=== PATIENT | female | born 1935 | race Caucasian/White ===

== ENCOUNTER 2017-12-29 13:45 | Outpatient (RCR) | payer MEDICARE, OTHER, SELFPAY ==
--- NOTE | 2017-11-17 15:04 | PT.OTN ---
On November 17, 2017 our therapy services consisting of Speech, Occupational, and Physical therapy transitioned from [employer] electronic documentation system to a new [employer] electronic system. All documentation prior to November 17 can be found under [employer] saved data. From November 17 forward, all medical record documentation will be in [employer] 6.1.
--- NOTE | 2017-11-17 17:30 | PT.OTN ---
Current Diagnoses Low back pain (11/17/17) Weakness (11/17/17) Unspecified fall, initial encounter (11/17/17) Physical Therapy Treatment Note PT-OP-Q Treatments Start: 11/17/17 16:42 Freq: Status: Active Protocol: Activity Type Activity Date Activity User E-Sign Co-Sign Detail Recorded Client Recorded Date Recorded By Document 11/17/17 16:43 EA [id number] 11/17/17 16:51 EA 11/17/17 16:43 Cardio Equipment [Recumbent Stepper (Sci-Fit)] -Duration (Minutes) 6 -Resistance 1 Therapeutic Exercises [Supine Exercises] 4 -Supine Exercise Name Stretch to periformis, hip flexors, IT band, both ankle PF -Side bilateral 3 -Supine Exercise Name Ankle DF -Side right -Resistance BTB -Reps/Minutes 10 reps x 2 2 -Supine Exercise Name Pelvic bridging -Side bilateral -Reps/Minutes 15 reps x 2 1 -Supine Exercise Name SLR -Side right -Resistance 2 lbs -Reps/Minutes 10 reps x 2 [Sidelying Exercises] 1 -Sidelying Exercise Name Clamshells -Side bilateral -Resistance BTB -Reps/Minutes 10 reps x 2 Self-Care/Home Management Treatment [Education] -Patient Education Home Exercise Program PT-OP-R Modalities Start: 11/17/17 16:42 Freq: Status: Active Protocol: Activity Type Activity Date Activity User E-Sign Co-Sign Detail Recorded Client Recorded Date Recorded By Document 11/17/17 17:16 EA [id number] 11/17/17 17:18 EA 11/17/17 17:16 Electric Stimulation [Electric Stimulation] Interferential Current (IFC) -Body Location paralumbars -Duration (Minutes) 15 -Contraction Type Normal -Target/Sweep Target -Patient Position Hooklying -Combined With Heat/Cold Hot Pack Hot Pack/Cold Pack [Treatment] Hot Pack -Location Paralumbars -Patient Position Hooklying -Patient Tolerance Good PT-OP-T Assessment and Plan Start: 11/17/17 16:42 Freq: Status: Active Protocol: Activity Type Activity Date Activity User E-Sign Co-Sign Detail Recorded Client Recorded Date Recorded By Document 11/17/17 16:43 EA [id number] 11/17/17 16:51 EA 11/17/17 16:43 Physical Therapy Assessment [Assessment Summary] -Assessment Tolerated treatment well w/ mild c/o pain and difficulty. Physical Therapy Plan [Next Visit Focus/Plan] -Next Visit Plan Review HEP and continue with current program
--- NOTE | 2017-11-19 17:02 | PT.OTN ---
Current Diagnoses Low back pain (11/19/17) Weakness (11/19/17) Unspecified fall, initial encounter (11/19/17) Physical Therapy Treatment Note PT-OP-Q Treatments Start: 11/17/17 16:42 Freq: Status: Active Protocol: Activity Type Activity Date Activity User E-Sign Co-Sign Detail Recorded Client Recorded Date Recorded By Document 11/19/17 14:34 EA [id number] 11/19/17 14:40 EA 11/19/17 14:34 Cardio Equipment [Recumbent Stepper (Sci-Fit)] -Duration (Minutes) 6 -Resistance 1 Therapeutic Exercises [Supine Exercises] 4 -Supine Exercise Name Stretch to periformis, hip flexors, IT band, both ankle PF -Side bilateral 3 -Supine Exercise Name Ankle DF -Side right -Resistance BTB -Reps/Minutes 10 reps x 2 2 -Supine Exercise Name Pelvic bridging -Side bilateral -Reps/Minutes 15 reps x 2 1 -Supine Exercise Name SLR -Side right -Resistance 2 lbs -Reps/Minutes 10 reps x 2 Gait Training [Gait Activity] 1 -Description heel to toe gait -Device Used none -Level of Assistance SBA -Distance/Duration 3 mins Manual Therapy Treatment [Soft Tissue Mobilization] 1 -Body Location paralumbars, QL , -Mobilization Type Myofascial Release Sustained Pressure -Body Position Sidelying PT-OP-R Modalities Start: 11/17/17 16:42 Freq: Status: Active Protocol: Activity Type Activity Date Activity User E-Sign Co-Sign Detail Recorded Client Recorded Date Recorded By Document 11/17/17 17:16 EA [id number] 11/17/17 17:18 EA 11/17/17 17:16 Electric Stimulation [Electric Stimulation] Interferential Current (IFC) -Body Location paralumbars -Duration (Minutes) 15 -Contraction Type Normal -Target/Sweep Target -Patient Position Hooklying -Combined With Heat/Cold Hot Pack Hot Pack/Cold Pack [Treatment] Hot Pack -Location Paralumbars -Patient Position Hooklying -Patient Tolerance Good PT-OP-T Assessment and Plan Start: 11/17/17 16:42 Freq: Status: Active Protocol: Activity Type Activity Date Activity User E-Sign Co-Sign Detail Recorded Client Recorded Date Recorded By Document 11/19/17 14:34 EA [id number] 11/19/17 14:40 EA 11/19/17 14:34 Physical Therapy Assessment [Assessment Summary] -Assessment Patient tolerated treatment well. Recommends to cont HEP. Physical Therapy Plan [Next Visit Focus/Plan] -Next Visit Plan Cont. with current Plan.
--- NOTE | 2017-11-23 14:49 | PT.OTN ---
Current Diagnoses Low back pain (11/23/17) Weakness (11/23/17) Unspecified fall, initial encounter (11/23/17) Physical Therapy Treatment Note PT-OP-A Visit Information Start: 11/17/17 16:42 Freq: Status: Active Protocol: Activity Type Activity Date Activity User E-Sign Co-Sign Detail Recorded Client Recorded Date Recorded By Document 11/23/17 14:36 EA [id number] 11/23/17 14:47 EA 11/23/17 14:36 Out-Patient Physical Therapy Visit Information [Visit Information] -Visit Type Treatment Note -Total Visit Minutes 55 -Visit Number 4 -Number of [employer] Visits 0 PT-OP-C Subjective Start: 11/17/17 16:42 Freq: Status: Active Protocol: Activity Type Activity Date Activity User E-Sign Co-Sign Detail Recorded Client Recorded Date Recorded By Document 11/23/17 14:36 EA [id number] 11/23/17 14:47 EA 11/23/17 14:36 OP-PT Subjective [Patient Comments] -Patient Comments Patient reports has been compliant with HEP and still have difficulty w/ calf stretching. PT-OP-Q Treatments Start: 11/17/17 16:42 Freq: Status: Active Protocol: Activity Type Activity Date Activity User E-Sign Co-Sign Detail Recorded Client Recorded Date Recorded By Document 11/23/17 14:36 EA [id number] 11/23/17 14:47 EA 11/23/17 14:36 Cardio Equipment [Recumbent Stepper (Sci-Fit)] -Duration (Minutes) 6 -Resistance 2 Gym Equipment [Shuttle Recovery] Unilateral Squats -Details 90degs -Resistance 1.5 cord -Shuttle Recovery Platform Stable -Reps/Time x 3 sets x 15 reps Therapeutic Exercises [Supine Exercises] 4 -Supine Exercise Name Stretch to periformis, hip flexors, IT band, both ankle PF -Side bilateral 3 -Supine Exercise Name Ankle DF -Side right -Resistance BTB -Reps/Minutes 10 reps x 2 2 -Supine Exercise Name Pelvic bridging -Side bilateral -Reps/Minutes 15 reps x 2 1 -Supine Exercise Name SLR -Side right -Resistance 2 lbs -Reps/Minutes 10 reps x 2 [Sidelying Exercises] 1 -Sidelying Exercise Name Clamshells -Side bilateral -Resistance BTB -Reps/Minutes 10 reps x 2 [Standing Exercises] 1 -Standing Exercise Name Standing gastrocsolues stretc -Side right -Reps/Minutes x 30SH x 2 Gait Training [Gait Activity] 1 -Description heel to toe gait -Device Used none -Level of Assistance SBA -Distance/Duration 5 mins Manual Therapy Treatment [Soft Tissue Mobilization] 1 -Body Location paralumbars, QL , -Mobilization Type Myofascial Release Sustained Pressure -Body Position Sidelying PT-OP-R Modalities Start: 11/17/17 16:42 Freq: Status: Active Protocol: Activity Type Activity Date Activity User E-Sign Co-Sign Detail Recorded Client Recorded Date Recorded By Document 11/23/17 14:36 EA [id number] 11/23/17 14:47 EA 11/23/17 14:36 Electric Stimulation [Electric Stimulation] Interferential Current (IFC) -Body Location paralumbars -Duration (Minutes) 15 -Contraction Type Normal -Target/Sweep Target -Patient Position Hooklying -Combined With Heat/Cold Hot Pack Hot Pack/Cold Pack [Treatment] Hot Pack -Location Paralumbars -Patient Position Hooklying -Patient Tolerance Good PT-OP-T Assessment and Plan Start: 11/17/17 16:42 Freq: Status: Active Protocol: Activity Type Activity Date Activity User E-Sign Co-Sign Detail Recorded Client Recorded Date Recorded By Document 11/23/17 14:36 EA [id number] 11/23/17 14:47 EA 11/23/17 14:36 Physical Therapy Assessment [Assessment Summary] -Assessment Improved heel strike w/ slight DF to right nted at this time. Tolerated treatment well except w/ minor hip pain as hip tned to hyper IR during heel strike. Physical Therapy Plan [Next Visit Focus/Plan] -Next Visit Plan Cont w/ current plan and advanced as tolerated.
--- NOTE | 2017-11-26 13:58 | PT.OTN ---
Current Diagnoses Low back pain (11/26/17) Weakness (11/26/17) Unspecified fall, initial encounter (11/26/17) Physical Therapy Treatment Note PT-OP-A Visit Information Start: 11/17/17 16:42 Freq: Status: Active Protocol: Document 11/26/17 13:53 EA (Rec: 11/26/17 13:57 EA [id number]) Out-Patient Physical Therapy Visit Information Visit Information Visit Type Treatment Note Total Visit Minutes 55 Visit Number 4 PT-OP-C Subjective Start: 11/17/17 16:42 Freq: Status: Active Protocol: Document 11/26/17 13:53 EA (Rec: 11/26/17 13:57 EA [id number]) OP-PT Subjective Patient Comments Patient Comments Patient reports has been compliahnt with HEP and low back pain is improving. PT-OP-Q Treatments Start: 11/17/17 16:42 Freq: Status: Active Protocol: Document 11/26/17 13:53 EA (Rec: 11/26/17 13:57 EA [id number]) Therapeutic Exercises Supine Exercises 4 Supine Exercise Name Stretch to periformis, hip flexors, IT band, both ankle PF Side bilateral 3 Supine Exercise Name Ankle DF Side right Resistance BTB Reps/Minutes 10 reps x 2 2 Supine Exercise Name Pelvic bridging Side bilateral Reps/Minutes 15 reps x 2 1 Supine Exercise Name SLR Side right Resistance 2 lbs Reps/Minutes 10 reps x 2 Sidelying Exercises 1 Sidelying Exercise Name Clamshells Side bilateral Resistance BTB Reps/Minutes 10 reps x 2 Standing Exercises 1 Standing Exercise Name Standing gastrocsolues stretc Side right Reps/Minutes x 30SH x 2 Gait Training Gait Activity 1 Description heel to toe gait Device Used none Level of Assistance SBA Distance/Duration 5 mins Manual Therapy Treatment Soft Tissue Mobilization 1 Body Location paralumbars, QL, Mobilization Type Myofascial Release Sustained Pressure Body Position Sidelying PT-OP-R Modalities Start: 11/17/17 16:42 Freq: Status: Active Protocol: Document 11/26/17 13:57 EA (Rec: 11/26/17 13:58 EA [id number]) Electric Stimulation Electric Stimulation Interferential Current (IFC) Body Location paralumbars Duration (Minutes) 15 Contraction Type Normal Target/Sweep Target Patient Position Hooklying Combined With Heat/Cold Hot Pack Hot Pack/Cold Pack Treatment Hot Pack Location Paralumbars Patient Position Hooklying Patient Tolerance Good PT-OP-T Assessment and Plan Start: 11/17/17 16:42 Freq: Status: Active Protocol: Document 11/26/17 13:53 EA (Rec: 11/26/17 13:57 EA [id number]) Physical Therapy Assessment Assessment Summary Assessment Tolerated treatment well: noted improved gait with less foot dragged. Physical Therapy Plan Next Visit Focus/Plan Next Visit Plan Advanced as tolerated
--- NOTE | 2017-11-30 14:16 | PT.OTN ---
Current Diagnoses Low back pain (11/30/17) Weakness (11/30/17) Unspecified fall, initial encounter (11/30/17) Physical Therapy Treatment Note PT-OP-A Visit Information Start: 11/17/17 16:42 Freq: Status: Active Protocol: Document 11/30/17 14:08 EA (Rec: 11/30/17 14:16 EA [id number]) Out-Patient Physical Therapy Visit Information Visit Information Visit Type Treatment Note Total Visit Minutes 55 Visit Number 6 PT-OP-C Subjective Start: 11/17/17 16:42 Freq: Status: Active Protocol: Document 11/30/17 14:08 EA (Rec: 11/30/17 14:16 EA [id number]) OP-PT Subjective Patient Comments Patient Comments ADDENDUN: Physician referral for low back receieved and continue current treatment. Patient reports that she feels her low back is improving and right foot dropped is getting better; states has been compliant with HEP PT-OP-Q Treatments Start: 11/17/17 16:42 Freq: Status: Active Protocol: Document 11/30/17 14:08 EA (Rec: 11/30/17 14:16 EA [id number]) Gym Equipment Shuttle Recovery Unilateral Squats Details 90degs Resistance 1.5 cord Shuttle Recovery Platform Stable Reps/Time x 3 sets x 15 reps Therapeutic Exercises Supine Exercises 4 Supine Exercise Name Stretch to periformis, hip flexors, IT band, both ankle PF Side bilateral 3 Supine Exercise Name Ankle DF Side right Resistance BTB/GTB Reps/Minutes 10 reps x 2 2 Supine Exercise Name Pelvic bridging Side bilateral Reps/Minutes 15 reps x 2 1 Supine Exercise Name SLR Side right Resistance 2 lbs Reps/Minutes 10 reps x 2 Sidelying Exercises 1 Sidelying Exercise Name Clamshells Side bilateral Resistance BTB Reps/Minutes 10 reps x 2 Standing Exercises 1 Standing Exercise Name Standing gastrocsolues stretc Side right Reps/Minutes x 30SH x 2 Gait Training Gait Activity 1 Description heel to toe gait Device Used none Level of Assistance SBA Distance/Duration 5 mins Manual Therapy Treatment Soft Tissue Mobilization 1 Body Location paralumbars, QL, Mobilization Type Myofascial Release Sustained Pressure Body Position Sidelying PT-OP-R Modalities Start: 11/17/17 16:42 Freq: Status: Active Protocol: Document 11/30/17 14:08 EA (Rec: 11/30/17 14:16 EA [id number]) Electric Stimulation Electric Stimulation Interferential Current (IFC) Body Location paralumbars Duration (Minutes) 15 Contraction Type Normal Target/Sweep Target Patient Position Hooklying Combined With Heat/Cold Hot Pack Hot Pack/Cold Pack Treatment Hot Pack Location Paralumbars Patient Position Hooklying Patient Tolerance Good PT-OP-T Assessment and Plan Start: 11/17/17 16:42 Freq: Status: Active Protocol: Document 11/30/17 14:08 EA (Rec: 11/30/17 14:16 EA [id number]) Physical Therapy Assessment Assessment Summary Assessment Patient has improved gait and less tenderpoint to low back area. Physical Therapy Plan Next Visit Focus/Plan Next Visit Plan Cont. with current Plan
--- NOTE | 2017-12-03 14:41 | PT.OTN ---
Current Diagnoses Low back pain (12/03/17) Weakness (12/03/17) Unspecified fall, initial encounter (12/03/17) Physical Therapy Treatment Note PT-OP-A Visit Information Start: 11/17/17 16:42 Freq: Status: Active Protocol: Document 12/03/17 14:34 EA (Rec: 12/03/17 14:41 EA [id number]) Out-Patient Physical Therapy Visit Information Visit Information Visit Type Treatment Note Total Visit Minutes 55 Visit Number 7 PT-OP-C Subjective Start: 11/17/17 16:42 Freq: Status: Active Protocol: Document 12/03/17 14:34 EA (Rec: 12/03/17 14:41 EA [id number]) OP-PT Subjective Patient Comments Patient Comments Patient reports she has been working in the yard for 1.[address] ice/HP on low back after. PT-OP-Q Treatments Start: 11/17/17 16:42 Freq: Status: Active Protocol: Document 12/03/17 14:34 EA (Rec: 12/03/17 14:41 EA [id number]) Gym Equipment Shuttle Recovery Unilateral Squats Details 90degs Resistance 1.5 cord Shuttle Recovery Platform Stable Reps/Time x 3 sets x 15 reps Therapeutic Exercises Supine Exercises 5 Supine Exercise Name Bridging w/ BTB isomet hip ABD Side bilateral Reps/Minutes 10 reps x 2 4 Supine Exercise Name Stretch to periformis, hip flexors, IT band, both ankle PF Side bilateral 3 Supine Exercise Name Ankle DF Side right Resistance BTB/GTB Reps/Minutes 10 reps x 2 2 Supine Exercise Name Pelvic bridging Side bilateral Reps/Minutes 15 reps x 2 1 Supine Exercise Name SLR Side right Resistance 2 lbs Reps/Minutes 10 reps x 2 Sidelying Exercises 1 Sidelying Exercise Name Clamshells Side bilateral Resistance BTB Reps/Minutes 10 reps x 2 Sitting Exercises 1 Sitting Exercise Name BTB Dorsiflexion/Ever Side right Reps/Minutes x 12 reps x 3 Standing Exercises 1 Standing Exercise Name Standing gastrocsolues stretc Side right Reps/Minutes x 30SH x 2 Manual Therapy Treatment Soft Tissue Mobilization 1 Body Location paralumbars, QL, Mobilization Type Myofascial Release Sustained Pressure Body Position Sidelying PT-OP-R Modalities Start: 11/17/17 16:42 Freq: Status: Active Protocol: Document 12/03/17 14:34 EA (Rec: 12/03/17 14:41 EA [id number]) Electric Stimulation Electric Stimulation Interferential Current (IFC) Body Location paralumbars Duration (Minutes) 15 Contraction Type Normal Target/Sweep Target Patient Position Hooklying Combined With Heat/Cold Hot Pack Hot Pack/Cold Pack Treatment Hot Pack Location Paralumbars Patient Position Hooklying Patient Tolerance Good PT-OP-T Assessment and Plan Start: 11/17/17 16:42 Freq: Status: Active Protocol: Document 12/03/17 14:34 EA (Rec: 12/03/17 14:41 EA [id number]) Physical Therapy Assessment Assessment Summary Assessment Patient had improved L dorsiflexion range Physical Therapy Plan Next Visit Focus/Plan Next Visit Plan Advance as tolerated.
--- NOTE | 2017-12-07 14:06 | PT.OTN ---
Current Diagnoses Low back pain (12/07/17) Weakness (12/07/17) Unspecified fall, initial encounter (12/07/17) Physical Therapy Treatment Note PT-OP-A Visit Information Start: 11/17/17 16:42 Freq: Status: Active Protocol: Document 12/07/17 13:53 EA (Rec: 12/07/17 14:04 EA [id number]) Out-Patient Physical Therapy Visit Information Visit Information Visit Type Treatment Note Visit Start Time 01:45 Visit Stop Time 01:55 Total Visit Minutes 55 Visit Number 8 PT-OP-C Subjective Start: 11/17/17 16:42 Freq: Status: Active Protocol: Document 12/07/17 13:53 EA (Rec: 12/07/17 14:04 EA [id number]) OP-PT Subjective Patient Comments Patient Comments Patient reports less back pain at this time and has been compliant with HEP. PT-OP-Q Treatments Start: 11/17/17 16:42 Freq: Status: Active Protocol: Document 12/07/17 13:53 EA (Rec: 12/07/17 14:04 EA [id number]) Cardio Equipment Recumbent Stepper (Sci-Fit) Duration (Minutes) 5 Resistance 2 Therapeutic Exercises Supine Exercises 5 Supine Exercise Name Bridging w/ BTB isomet hip ABD Side bilateral Reps/Minutes 10 reps x 2 4 Supine Exercise Name Stretch to periformis, hip flexors, IT band, both ankle PF Side bilateral 3 Supine Exercise Name Ankle DF Side right Resistance BTB/GTB Reps/Minutes 10 reps x 2 2 Supine Exercise Name Pelvic bridging Side bilateral Reps/Minutes 15 reps x 2 1 Supine Exercise Name SLR Side right Resistance 2 lbs Reps/Minutes 10 reps x 2 Sidelying Exercises 2 Sidelying Exercise Name Right hip ABD Resistance 2# Reps/Minutes 10 x 2 1 Sidelying Exercise Name Clamshells Side bilateral Resistance BTB Reps/Minutes 10 reps x 2 Sitting Exercises 1 Sitting Exercise Name BTB Dorsiflexion/Ever Side right Reps/Minutes x 12 reps x 3 Standing Exercises 1 Standing Exercise Name Standing gastrocsolues stretc Side right Reps/Minutes x 30SH x 2 Therapeutic Activity Therapeutic Activity 1 Name Waist to hip lift Reps/Minutes 10 reps Comments 10 lbs of weight; Proper lifting mechanics Manual Therapy Treatment Soft Tissue Mobilization 1 Body Location paralumbars, QL, Mobilization Type Myofascial Release Sustained Pressure Body Position Sidelying PT-OP-R Modalities Start: 11/17/17 16:42 Freq: Status: Active Protocol: Document 12/07/17 13:53 EA (Rec: 12/07/17 14:04 EA [id number]) Electric Stimulation Electric Stimulation Interferential Current (IFC) Body Location paralumbars Duration (Minutes) 15 Contraction Type Normal Target/Sweep Target Patient Position Hooklying Combined With Heat/Cold Hot Pack PT-OP-T Assessment and Plan Start: 11/17/17 16:42 Freq: Status: Active Protocol: Document 12/07/17 13:53 EA (Rec: 12/07/17 14:04 EA [id number]) Physical Therapy Assessment Assessment Summary Assessment Patient noted improved DF strength and improved low back tenderness. Bilateral inguinal pain noted with hip flexion exercises but eliminated when patient unhold breathe during exerecises. Physical Therapy Plan Next Visit Focus/Plan Next Visit Plan Cont.w ith current plan. Please Sign and Return: I have reviewed this Plan of Care and certify that the skilled therapy services above are required to meet the patient???s needs. Physician Signature Date Printed Name and Credentials Clinical Instructor Signature Printed Name and Credentials
--- NOTE | 2017-12-15 17:18 | PT.OTN ---
Current Diagnoses Low back pain (12/15/17) Weakness (12/15/17) Unspecified fall, initial encounter (12/15/17) Physical Therapy Treatment Note PT-OP-A Visit Information Start: 11/17/17 16:42 Freq: Status: Active Protocol: Document 12/15/17 16:06 EA (Rec: 12/15/17 16:11 EA [id number]) Out-Patient Physical Therapy Visit Information Visit Information Total Visit Minutes 48 Visit Number 9 PT-OP-C Subjective Start: 11/17/17 16:42 Freq: Status: Active Protocol: Document 12/15/17 16:06 EA (Rec: 12/15/17 16:11 EA [id number]) OP-PT Subjective Patient Comments Patient Comments Patient reports back pain frequency is much less at this time ans she has been compliant with HEP. Patient also reports set-up surgeon appointment for inguinal hernia. PT-OP-Q Treatments Start: 11/17/17 16:42 Freq: Status: Active Protocol: Document 12/15/17 16:06 EA (Rec: 12/15/17 16:11 EA [id number]) Cardio Equipment Recumbent Stepper (Sci-Fit) Duration (Minutes) 5 Resistance 2.5 Gym Equipment Shuttle Recovery Unilateral Squats Details 90degs Resistance 1.5 cord Shuttle Recovery Platform Stable Reps/Time x 3 sets x 15 reps Therapeutic Exercises Supine Exercises 5 Supine Exercise Name Bridging w/ BTB isomet hip ABD Side bilateral Reps/Minutes 10 reps x 2 4 Supine Exercise Name Stretch to periformis, hip flexors, IT band, both ankle PF Side bilateral 3 Supine Exercise Name Ankle DF Side right Resistance BTB/GTB Reps/Minutes 10 reps x 2 2 Supine Exercise Name Pelvic bridging Side bilateral Reps/Minutes 15 reps x 2 1 Supine Exercise Name SLR Side right Resistance 2 lbs Reps/Minutes 10 reps x 2 Sidelying Exercises 2 Sidelying Exercise Name Right hip ABD Resistance 2# Reps/Minutes 10 x 2 1 Sidelying Exercise Name Clamshells Side bilateral Resistance BTB Reps/Minutes 10 reps x 2 Standing Exercises 1 Standing Exercise Name Standing gastrocsolues stretc Side right Reps/Minutes x 30SH x 2 Manual Therapy Treatment Soft Tissue Mobilization 1 Body Location paralumbars, QL, Mobilization Type Myofascial Release Sustained Pressure Body Position Sidelying PT-OP-R Modalities Start: 11/17/17 16:42 Freq: Status: Active Protocol: Document 12/15/17 16:06 EA (Rec: 12/15/17 16:11 EA [id number]) Electric Stimulation Electric Stimulation Interferential Current (IFC) Body Location paralumbars Duration (Minutes) 15 Contraction Type Normal Target/Sweep Target Patient Position Hooklying Combined With Heat/Cold Hot Pack PT-OP-T Assessment and Plan Start: 11/17/17 16:42 Freq: Status: Active Protocol: Document 12/15/17 16:06 EA (Rec: 12/15/17 16:11 EA [id number]) Physical Therapy Assessment Assessment Summary Assessment Tolerated treatment with much improve DF ROM noted. Physical Therapy Plan Next Visit Focus/Plan Next Visit Plan advance as tolerated. Please Sign and Return: I have reviewed this Plan of Care and certify that the skilled therapy services above are required to meet the patient???s needs. Physician Signature Date Printed Name and Credentials Clinical Instructor Signature Printed Name and Credentials
--- NOTE | 2017-12-17 14:37 | PT.OTN ---
Current Diagnoses Low back pain (12/17/17) Weakness (12/17/17) Unspecified fall, initial encounter (12/17/17) Physical Therapy Treatment Note PT-OP-A Visit Information Start: 11/17/17 16:42 Freq: Status: Active Protocol: Document 12/17/17 14:30 EA (Rec: 12/17/17 14:36 EA [id number]) Out-Patient Physical Therapy Visit Information Visit Information Visit Type Treatment Note Total Visit Minutes 48 Visit Number 10 PT-OP-C Subjective Start: 11/17/17 16:42 Freq: Status: Active Protocol: Document 12/17/17 14:30 EA (Rec: 12/17/17 14:36 EA [id number]) OP-PT Subjective Patient Comments Patient Comments Patient reports she has been active and ding thing in the backyard and proch; states low back is quite sore but tolerable. PT-OP-Q Treatments Start: 11/17/17 16:42 Freq: Status: Active Protocol: Document 12/17/17 14:30 EA (Rec: 12/17/17 14:36 EA [id number]) Cardio Equipment Recumbent Stepper (Sci-Fit) Duration (Minutes) 5 Resistance 2.5 Gym Equipment Shuttle Recovery Unilateral Squats Details 90degs Resistance 2 cord Shuttle Recovery Platform Stable Reps/Time x 3 sets x 15 reps Therapeutic Exercises Supine Exercises 5 Supine Exercise Name Bridging w/ BTB isomet hip ABD Side bilateral Reps/Minutes 10 reps x 2 4 Supine Exercise Name Stretch to periformis, hip flexors, IT band, both ankle PF Side bilateral 3 Supine Exercise Name Ankle DF Side right Resistance BTB/GTB Reps/Minutes 10 reps x 2 2 Supine Exercise Name Pelvic bridging Side bilateral Reps/Minutes 15 reps x 2 1 Supine Exercise Name SLR Side right Resistance 2 lbs Reps/Minutes 10 reps x 2 Sidelying Exercises 2 Sidelying Exercise Name Right hip ABD Resistance 2# Reps/Minutes 10 x 2 1 Sidelying Exercise Name Clamshells Side bilateral Resistance BTB Reps/Minutes 10 reps x 2 Standing Exercises 1 Standing Exercise Name Standing gastrocsolues stretc Side right Reps/Minutes x 30SH x 2 Manual Therapy Treatment Soft Tissue Mobilization 1 Body Location paralumbars, QL, Mobilization Type Myofascial Release Sustained Pressure Body Position Sidelying PT-OP-R Modalities Start: 11/17/17 16:42 Freq: Status: Active Protocol: Document 12/17/17 14:30 EA (Rec: 12/17/17 14:36 EA [id number]) Electric Stimulation Electric Stimulation Interferential Current (IFC) Body Location paralumbars Duration (Minutes) 15 Contraction Type Normal Target/Sweep Target Patient Position Hooklying Combined With Heat/Cold Hot Pack PT-OP-T Assessment and Plan Start: 11/17/17 16:42 Freq: Status: Active Protocol: Document 12/17/17 14:30 EA (Rec: 12/17/17 14:36 EA [id number]) Physical Therapy Assessment Assessment Summary Assessment Tolerated treatment well. Physical Therapy Plan Next Visit Focus/Plan Next Note Type Progress Note Next Visit Plan metake measurements Please Sign and Return: I have reviewed this Plan of Care and certify that the skilled therapy services above are required to meet the patient?s needs. Physician Signature Date Printed Name and Credentials Clinical Instructor Signature Printed Name and Credentials
--- NOTE | 2017-12-23 07:46 | PT.OTRE ---
Current Diagnoses Low back pain (12/21/17) Weakness (12/21/17) Unspecified fall, initial encounter (12/21/17) Provider Visit Care Team Role Provider Type Christina Metzger PA-C Attending Provider Physician Family Provider Primary Care Provider Specialty: Internal Medicine Address: [address] [place] [address], [id number] Email: Physical Therapy Re-Evaluation PT-OP-A Visit Information Start: 11/17/17 16:42 Freq: Status: Active Protocol: Document 12/21/17 16:17 EA (Rec: 12/22/17 07:31 EA [id number]) Out-Patient Physical Therapy Visit Information Visit Information Visit Type Treatment Note Visit Note Progress report performed to this date. Total Visit Minutes 48 Visit Number 11 PT-OP-B Current Condition Start: 11/17/17 16:42 Freq: Status: Active Protocol: Document 12/21/17 16:17 EA (Rec: 12/22/17 07:31 EA [id number]) Current Condition History of Current Condition Onset Date 1 year ago Current Complaints 1. Standing balance difficulty , 2. Chronic low back pain History of Current Condition Medical reports indicate that patient had a referring physician visit on 10/15/17 due to c/o multiple fall with no injury last year. Patient was then referred to PT for further evaluation. Patient initial evaluation performed on and had additional c/o of back pain was was not documented on physician referral note. Low back pain referral received 2 weeks after initial evaluation. Patient undergone 10 visit that focused on her low back pain and balance difficulty. Future Testing and Treatments Planned Ongoing skilled PT Treatment Goals Patient/Caregiver Goals Decreased low back pain and Improve standing balance. Prior Functional Status Baseline Function- ADL's Independent Baseline Function- Mobility Independent Baseline Function- Gait Indep Current Functional Impairments (Reported) Functional Limitations- ADL's Mild difficulty due to balance difficulty and low back pain Functional Limitations- Mobility/Gait Indep with mild difficulty PT-OP-C Subjective Start: 11/17/17 16:42 Freq: Status: Active Protocol: Document 12/21/17 16:27 EA (Rec: 12/22/17 08:30 EA [id number]) OP-PT Subjective Patient Comments Patient Comments Patient reports that she has been compliant with HEP; states low back pain is getting less and bed positioning help to decrease morning stiffness. Patient reports occasional right hip pain which occurs when hip is in 100 deg. flexion; denies loss of function. Patient Reported Progress Improving Patient Questionnaires Oswestry Low Back Index Oswestry Impairment 1 to 19% Impaired (Score 1-19) PT-OP-D Balance Start: 11/17/17 16:42 Freq: Status: Active Protocol: Document 12/21/17 16:35 EA (Rec: 12/22/17 08:57 EA [id number]) Balance Tests Single Limb Standing Single Limb- Right < 3 seconds Single Limb- Left < 5 seconds PT-OP-F Manual Assessment Start: 11/17/17 16:42 Freq: Status: Active Protocol: Document 12/21/17 16:35 EA (Rec: 12/22/17 08:57 EA [id number]) Manual Assessments Soft Tissue Assessment Soft Tissue Mobility Assessment Tightness to right gastrocsoleus; right hip external rotators PT-OP-G Mobility & Gait Start: 11/17/17 16:42 Freq: Status: Active Protocol: Document 12/21/17 16:35 EA (Rec: 12/22/17 08:57 EA [id number]) OP Gait Assessment Comments Gait Comments Right mild foot dropped at swing phase with slight hip internal rotation. No heel strike at initial contact. PT-OP-K Range of Motion Start: 11/17/17 16:42 Freq: Status: Active Protocol: Document 12/21/17 16:35 EA (Rec: 12/22/17 08:57 EA [id number]) Lumbar Spine Range of Motion Lumbar Spine Active Percentage Testing Position standing Flexion 75 Extension 75 Rotation Left 65 Rotation Right 65 Lateral Flexion Left 65 Lateral Flexion Right 75 ROM Limitations Soft Tissue Tightness Ankle and Foot Goniometric Range of Motion Ankle and Foot Measured in Degrees Right Active Ankle/Foot ROM WFL Yes Testing Position Sitting Dorsiflexion with Knee Flexed 8 Dorsiflexion with Knee Extended 10 Plantarflexion 55 Inversion 30 Eversion 10 PT-OP-M Strength Start: 11/17/17 16:42 Freq: Status: Active Protocol: Document 12/21/17 16:35 EA (Rec: 12/22/17 08:57 EA [id number]) Hip Strength Hip Manual Muscle Testing Right Flexion (L2) 3+ Fair+ Extension (S1) 4- Good- Abduction 3+ Fair+ Adduction 4- Good- External Rotation 3 Fair Internal Rotation 3+ Fair+ Comments Left hip major muscle group MMT grossly normal Ankle/Foot Strength Ankle and Foot Manual Muscle Testing Right Dorsiflexion (L4) 3+ Fair+ Plantarflexion (S1) 4 Good Inversion 4- Good- Eversion (S1) 3+ Fair+ Comments Left ankle major muscle group grossly graded normal PT-OP-Q Treatments Start: 11/17/17 16:42 Freq: Status: Active Protocol: Document 12/21/17 16:35 EA (Rec: 12/22/17 08:57 EA [id number]) Therapeutic Exercises Supine Exercises 5 Supine Exercise Name Bridging w/ BTB isomet hip ABD Side bilateral Reps/Minutes 10 reps x 2 4 Supine Exercise Name Stretch to piriformis, hip flexors, IT band, both ankle PF Side bilateral 3 Supine Exercise Name Ankle DF Side right Resistance BTB/GTB Reps/Minutes 10 reps x 2 2 Supine Exercise Name Pelvic bridging Side bilateral Reps/Minutes 15 reps x 2 1 Supine Exercise Name SLR Side right Resistance 2 lbs Reps/Minutes 10 reps x 2 Sidelying Exercises 2 Sidelying Exercise Name Right hip ABD Resistance 2# Reps/Minutes 10 x 2 1 Sidelying Exercise Name Clamshells Side bilateral Resistance BTB Reps/Minutes 10 reps x 2 Standing Exercises 1 Standing Exercise Name Standing gastrocsolues stretc Side right Reps/Minutes x 30SH x 2 Manual Therapy Treatment Soft Tissue Mobilization 1 Body Location paralumbars, QL, Mobilization Type Myofascial Release Sustained Pressure Body Position Sidelying PT-OP-R Modalities Start: 11/17/17 16:42 Freq: Status: Active Protocol: Document 12/21/17 16:35 EA (Rec: 12/22/17 08:57 EA [id number]) Electric Stimulation Electric Stimulation Interferential Current (IFC) Body Location paralumbars Duration (Minutes) 15 Contraction Type Normal Target/Sweep Target Patient Position Hooklying Combined With Heat/Cold Hot Pack PT-OP-T Assessment and Plan Start: 11/17/17 16:42 Freq: Status: Active Protocol: Document 12/21/17 16:35 EA (Rec: 12/22/17 08:57 EA [id number]) Physical Therapy Assessment Rehab Potential Rehabilitation Potential Fair Impairments Impairments Balance Gait Pain ROM Soft Tissue Mobility Strength Goals Three Impairment Low back pain PS of 5/10 Embosser Operator Goal (LTG) Patient will report low back pain scale of 2/10 LTG Duration 4 wks. Two Impairment Decreased Right hip and ankle DF by 1 grade Prison Goal (LTG) Patient will exhibit increase right ankle DF and hip major ms group strength for gait improvement and to decreased chance of fall. LTG Duration 4 wks One Impairment 5 degrees ankle DF limitation w/ knee flexion/ext Prison Goal (LTG) Patient will exhibit functional ankle DF ROM to improve gait. LTG Duration 4 wks Progress Towards Goals Progress Towards Goals Progressing Toward Goals Assessment Summary Assessment Patient is progressing slow toward right ankle ROM and DF strength which possibly due to chronicity of condition. Patient is progressing as expected with low back pain complaint and has been compliant with all recommended exercises and pre-cautions. Overall patient progressing towards goals and will continue to benefit with skilled PT at this time. Physical Therapy Plan Frequency and Duration Frequency of Treatment 2x/Week Plan of Care Start Date 12/22/17 Plan of Care End Date 02/09/18 Therapeutic Interventions Therapeutic Interventions Balance Training Gait Training Home Exercise Program Manual Therapy Patient/Caregiver Education Self-Care/Home Management Soft Tissue Mobilization Therapeutic Exercises Modalities Cold Pack/Ice Massage Electric Stimulation Ultrasound Next Visit Focus/Plan Next Note Type Treatment Note Next Visit Plan Progress as tolerated. Please Sign and Return: I have reviewed this Plan of Care and certify that the skilled therapy services above are required to meet the patient?s needs. Physician Signature Date Printed Name and Credentials Clinical Instructor Signature Printed Name and Credentials
--- NOTE | 2017-12-23 07:48 | PT.OPPOC ---
Current Diagnoses Low back pain (12/21/17) Weakness (12/21/17) Unspecified fall, initial encounter (12/21/17) Provider Visit Care Team Role Provider Type Christina Metzger PA-C Attending Provider Physician Family Provider Primary Care Provider Specialty: Internal Medicine Address: [address] [place] [address], [id number] Email: Plan Of Care PT-OP-T Assessment and Plan Start: 11/17/17 16:42 Freq: Status: Active Protocol: Document 12/21/17 16:35 EA (Rec: 12/22/17 08:57 EA [id number]) Physical Therapy Assessment Rehab Potential Rehabilitation Potential Fair Impairments Impairments Balance Gait Pain ROM Soft Tissue Mobility Strength Goals Three Impairment Low back pain PS of 5/10 Catalogue Librarian Goal (LTG) Patient will report low back pain scale of 2/10 LTG Duration 4 wks. Two Impairment Decreased Right hip and ankle DF by 1 grade Catalogue Librarian Goal (LTG) Patient will exhibit increase right ankle DF and hip major ms group strength for gait imprvement and to decreased chance of fall. LTG Duration 4 wks One Impairment 5 degrees ankle DF limitation w/ knee flexion/ext Longterm Goal (LTG) Patient will exhibit functional ankle DF ROM to improve gait. LTG Duration 4 wks Progress Towards Goals Progress Towards Goals Progressing Toward Goals Assessment Summary Assessment Patient is progressing slow toward right ankle ROM and DF strength which posssibly due to chronicity of condition. Patient is progressing as expected with low back pain complaint and has been compliant with all recommended exercises and pre-cautions. Overall patient progressing towards goals and will continue to benefit with skilled PT at this time. Physical Therapy Plan Frequency and Duration Frequency of Treatment 2x/Week Plan of Care Start Date 12/22/17 Plan of Care End Date 02/09/18 Therapeutic Interventions Therapeutic Interventions Balance Training Gait Training Home Exercise Program Manual Therapy Patient/Caregiver Education Self-Care/Home Management Soft Tissue Mobilization Therapeutic Exercises Modalities Cold Pack/Ice Massage Electric Stimulation Ultrasound Next Visit Focus/Plan Next Note Type Treatment Note Next Visit Plan Progress as tolerated. Plan of Care Dates Plan of Care Start Date 12/22/17 Plan of Care End Date 02/09/18 Please Sign and Return: I have reviewed this Plan of Care and certify that the skilled therapy services above are required to meet the patient?s needs. Physician Signature Date Printed Name and Credentials Clinical Instructor Signature Printed Name and Credentials
--- NOTE | 2017-12-24 15:02 | PT.OTN ---
Current Diagnoses Low back pain (12/24/17) Weakness (12/24/17) Unspecified fall, initial encounter (12/24/17) Physical Therapy Treatment Note PT-OP-A Visit Information Start: 11/17/17 16:42 Freq: Status: Active Protocol: Document 12/24/17 14:35 EA (Rec: 12/24/17 14:39 EA [id number]) Out-Patient Physical Therapy Visit Information Visit Information Visit Type Treatment Note Total Visit Minutes 48 Visit Number 12 PT-OP-B Current Condition Start: 11/17/17 16:42 Freq: Status: Active Protocol: Document 12/21/17 16:17 EA (Rec: 12/22/17 07:31 EA [id number]) Current Condition History of Current Condition Onset Date 1 year ago Current Complaints 1. Standing balance difficulty , 2. Chronic low back pain History of Current Condition Medical reports indicate that patient had a referring physician visit on 10/15/17 due to c/o multiple fall with no injury last year. Patient was then referred to PT for further evaluation. Patient initial evaluation performed on and had additional c/o of back pain was was not documented on physician referral note. Low back pain refferal recieved 2 weeks after initial evaluation. Patient undergone 10 visit that focused on her low back pain and balance difficulty. Future Testing and Treatments Planned Ongoing skilled PT Treatment Goals Patient/Caregiver Goals Decrased low back pain and Improve standing balance. Prior Functional Status Baseline Function- ADL's Independent Baseline Function- Mobility Independent Baseline Function- Gait Indep Current Functional Impairments (Reported) Functional Limitations- ADL's Mild difficulty due to balance difficulty and low back pain Functional Limitations- Mobility/Gait Indep with mild difficulty PT-OP-C Subjective Start: 11/17/17 16:42 Freq: Status: Active Protocol: Document 12/24/17 14:35 EA (Rec: 12/24/17 14:39 EA [id number]) OP-PT Subjective Patient Comments Patient Comments Patient reports efren hudson is progressing well;states she beleives posture and good body mechanics helps to decrease back pain. Patient also reports that she is scheduled for inguinal hernia surgery next month; states would like to freeze the Pt session after next week visit; states would like to learn more HEP and use personal TENS . PT-OP-D Balance Start: 05/01/18 16:42 Freq: Status: Active Protocol: Document 12/21/17 16:35 EA (Rec: 12/22/17 08:57 EA [id number]) Balance Tests Single Limb Standing Single Limb- Right < 3 seconds Single Limb- Left < 5 seconds PT-OP-F Manual Assessment Start: 11/17/17 16:42 Freq: Status: Active Protocol: Document 12/21/17 16:35 EA (Rec: 12/22/17 08:57 EA [id number]) Manual Assessments Soft Tissue Assessment Soft Tissue Mobility Assessment Tightness to right gastrosoleus; right hip external rotators PT-OP-G Mobility & Gait Start: 11/17/17 16:42 Freq: Status: Active Protocol: Document 12/21/17 16:35 EA (Rec: 12/22/17 08:57 EA [id number]) OP Gait Assessment Comments Gait Comments Right mild foot dropped at swing phase with slight hip internal rotation. No heel strike at initial contact. PT-OP-K Range of Motion Start: 11/17/17 16:42 Freq: Status: Active Protocol: Document 12/21/17 16:35 EA (Rec: 12/22/17 08:57 EA [id number]) Lumbar Spine Range of Motion Lumbar Spine Active Percentage Testing Position standing Flexion 75 Extension 75 Rotation Left 65 Rotation Right 65 Lateral Flexion Left 65 Lateral Flexion Right 75 ROM Limitations Soft Tissue Tightness Ankle and Foot Goniometric Range of Motion Ankle and Foot Measured in Degrees Right Active Ankle/Foot ROM WFL Yes Testing Position Sitting Dorsiflexion with Knee Flexed 8 Dorsiflexion with Knee Extended 10 Plantarflexion 55 Inversion 30 Eversion 10 PT-OP-M Strength Start: 11/17/17 16:42 Freq: Status: Active Protocol: Document 12/21/17 16:35 EA (Rec: 12/22/17 08:57 EA [id number]) Hip Strength Hip Manual Muscle Testing Right Flexion (L2) 3+ Fair+ Extension (S1) 4- Good- Abduction 3+ Fair+ Adduction 4- Good- External Rotation 3 Fair Internal Rotation 3+ Fair+ Comments Left hip major muscle group MMT grossly normal Ankle/Foot Strength Ankle and Foot Manual Muscle Testing Right Dorsiflexion (L4) 3+ Fair+ Plantarflexion (S1) 4 Good Inversion 4- Good- Eversion (S1) 3+ Fair+ Comments Left ankle major muscle group grossly graded normal PT-OP-Q Treatments Start: 11/17/17 16:42 Freq: Status: Active Protocol: Document 12/24/17 14:35 EA (Rec: 12/24/17 14:39 EA [id number]) Cardio Equipment Recumbent Stepper (Sci-Fit) Duration (Minutes) 5 Resistance 2.5 Therapeutic Exercises Supine Exercises 5 Supine Exercise Name Bridging w/ BTB isomet hip ABD Side bilateral Reps/Minutes 10 reps x 2 4 Supine Exercise Name Stretch to periformis, hip flexors, IT band, both ankle PF Side bilateral 3 Supine Exercise Name Ankle DF Side right Resistance BTB/GTB Reps/Minutes 10 reps x 2 2 Supine Exercise Name Pelvic bridging Side bilateral Reps/Minutes 15 reps x 2 1 Supine Exercise Name SLR Side right Resistance 2 lbs Reps/Minutes 10 reps x 2 Sidelying Exercises 2 Sidelying Exercise Name Right hip ABD Resistance 2# Reps/Minutes 10 x 2 1 Sidelying Exercise Name Clamshells Side bilateral Resistance BTB Reps/Minutes 10 reps x 2 Standing Exercises 1 Standing Exercise Name Standing gastrocsolues stretc Side right Reps/Minutes x 30SH x 2 PT-OP-R Modalities Start: 11/17/17 16:42 Freq: Status: Active Protocol: Document 12/24/17 15:01 EA (Rec: 12/24/17 15:02 EA [id number]) Electric Stimulation Electric Stimulation Interferential Current (IFC) Body Location paralumbars Duration (Minutes) 15 Contraction Type Normal Target/Sweep Target Patient Position Hooklying Combined With Heat/Cold Hot Pack PT-OP-T Assessment and Plan Start: 11/17/17 16:42 Freq: Status: Active Protocol: Document 12/24/17 15:01 EA (Rec: 12/24/17 15:02 EA [id number]) Physical Therapy Assessment Assessment Summary Assessment Tolerated treatment well. Physical Therapy Plan Next Visit Focus/Plan Next Note Type Treatment Note Next Visit Plan HEP and teach how to use TENS Please Sign and Return: I have reviewed this Plan of Care and certify that the skilled therapy services above are required to meet the patient?s needs. Physician Signature Date Printed Name and Credentials Clinical Instructor Signature Printed Name and Credentials
--- NOTE | 2017-12-30 15:44 | PT.OTN ---
Current Diagnoses Low back pain (12/29/17) Weakness (12/29/17) Unspecified fall, initial encounter (12/29/17) Physical Therapy Treatment Note PT-OP-A Visit Information Start: 11/17/17 16:42 Freq: Status: Active Protocol: Document 12/29/17 17:30 EA (Rec: 12/30/17 08:13 EA [id number]) Out-Patient Physical Therapy Visit Information Visit Information Visit Type Treatment Note Visit Start Time 13:45 Visit Stop Time 14:40 Total Visit Minutes 55 Visit Number 13 PT-OP-B Current Condition Start: 11/17/17 16:42 Freq: Status: Active Protocol: Document 12/21/17 16:17 EA (Rec: 12/22/17 07:31 EA [id number]) Current Condition History of Current Condition Onset Date 1 year ago Current Complaints 1. Standing balance difficulty , 2. Chronic low back pain History of Current Condition Medical reports indicate that patient had a referring physician visit on 10/15/17 due to c/o multiple fall with no injury last year. Patient was then referred to PT for further evaluation. Patient initial evaluation performed on and had additional c/o of back pain was was not documented on physician referral note. Low back pain refferal recieved 2 weeks after initial evaluation. Patient undergone 10 visit that focused on her low back pain and balance difficulty. Future Testing and Treatments Planned Ongoing skilled PT Treatment Goals Patient/Caregiver Goals Decrased low back pain and Improve standing balance. Prior Functional Status Baseline Function- ADL's Independent Baseline Function- Mobility Independent Baseline Function- Gait Indep Current Functional Impairments (Reported) Functional Limitations- ADL's Mild difficulty due to balance difficulty and low back pain Functional Limitations- Mobility/Gait Indep with mild difficulty PT-OP-C Subjective Start: 11/17/17 16:42 Freq: Status: Active Protocol: Document 12/29/17 17:30 EA (Rec: 12/30/17 08:13 EA [id number]) OP-PT Subjective Patient Comments Patient Comments Patient reports that she will be having surgery next month and she would like to know more HEP and how to use personal TENS machine; states it is okay to discharge at this time and will continue HEP. Patient sattes that she will come back to PT once cleared by her physician after bilateral inguinal hernia surgery. Patient reports that she ahs been complaint with HEP and no fall in the past few weeks; patient denies any low pain aggravation at this time. Patient Questionnaires Lower Extremity Functional Scale LEFS Score 48 LEFS Impairment 20 to 39% Impaired (Score 48- 62) Oswestry Low Back Index Oswestry Impairment 1 to 19% Impaired (Score 1-19) PT-OP-D Balance Start: 11/17/17 16:42 Freq: Status: Active Protocol: Document 12/21/17 16:35 EA (Rec: 12/22/17 08:57 EA [id number]) Balance Tests Single Limb Standing Single Limb- Right < 3 seconds Single Limb- Left < 5 seconds PT-OP-F Manual Assessment Start: 11/17/17 16:42 Freq: Status: Active Protocol: Document 12/21/17 16:35 EA (Rec: 12/22/17 08:57 EA [id number]) Manual Assessments Soft Tissue Assessment Soft Tissue Mobility Assessment Tightness to right gastrosoleus; right hip external rotators PT-OP-G Mobility & Gait Start: 11/17/17 16:42 Freq: Status: Active Protocol: Document 12/21/17 16:35 EA (Rec: 12/22/17 08:57 EA [id number]) OP Gait Assessment Comments Gait Comments Right mild foot dropped at swing phase with slight hip internal rotation. No heel strike at initial contact. PT-OP-K Range of Motion Start: 11/17/17 16:42 Freq: Status: Active Protocol: Document 12/21/17 16:35 EA (Rec: 12/22/17 08:57 EA [id number]) Lumbar Spine Range of Motion Lumbar Spine Active Percentage Testing Position standing Flexion 75 Extension 75 Rotation Left 65 Rotation Right 65 Lateral Flexion Left 65 Lateral Flexion Right 75 ROM Limitations Soft Tissue Tightness Ankle and Foot Goniometric Range of Motion Ankle and Foot Measured in Degrees Right Active Ankle/Foot ROM WFL Yes Testing Position Sitting Dorsiflexion with Knee Flexed 8 Dorsiflexion with Knee Extended 10 Plantarflexion 55 Inversion 30 Eversion 10 PT-OP-M Strength Start: 11/17/17 16:42 Freq: Status: Active Protocol: Document 12/21/17 16:35 EA (Rec: 12/22/17 08:57 EA [id number]) Hip Strength Hip Manual Muscle Testing Right Flexion (L2) 3+ Fair+ Extension (S1) 4- Good- Abduction 3+ Fair+ Adduction 4- Good- External Rotation 3 Fair Internal Rotation 3+ Fair+ Comments Left hip major muscle group MMT grossly normal Ankle/Foot Strength Ankle and Foot Manual Muscle Testing Right Dorsiflexion (L4) 3+ Fair+ Plantarflexion (S1) 4 Good Inversion 4- Good- Eversion (S1) 3+ Fair+ Comments Left ankle major muscle group grossly graded normal PT-OP-Q Treatments Start: 11/17/17 16:42 Freq: Status: Active Protocol: Document 12/29/17 17:30 EA (Rec: 12/30/17 08:13 EA [id number]) Cardio Equipment Recumbent Stepper (Sci-Fit) Duration (Minutes) 5 Resistance 2.5 Gym Equipment Shuttle Recovery Unilateral Squats Details ensure knee foot alignment Resistance 37 # Shuttle Recovery Platform Stable Reps/Time 12 x 2 sets Therapeutic Exercises Supine Exercises 5 Supine Exercise Name Bridging w/ BTB isomet hip ABD Side bilateral Reps/Minutes 10 reps x 2 Comments HEP component 4 Supine Exercise Name Stretch to periformis, hip flexors, IT band, both ankle PF Side bilateral Comments HEP component 3 Supine Exercise Name Ankle DF Side right Resistance BTB/GTB Reps/Minutes 10 reps x 2 Comments Hep component 1 Supine Exercise Name SLR Side right Resistance 2 lbs Reps/Minutes 10 reps x 2 Comments HEP component Sidelying Exercises 2 Sidelying Exercise Name Right hip ABD Resistance 2# Reps/Minutes 10 x 2 Comments HEP component Sitting Exercises 1 Sitting Exercise Name R hip ER/IR Side right Resistance BTB Reps/Minutes x 12 reps x 2 Comments HEP component Standing Exercises 1 Standing Exercise Name Standing gastrocsuleos stretc Side right Reps/Minutes x 30SH x 2 Comments HEP component Self-Care/Home Management Treatment Education Patient Education Home Exercise Program Joint Protection Safety Other Education Gait activity exercises. Use of TENS and safety procedure PT-OP-R Modalities Start: 11/17/17 16:42 Freq: Status: Active Protocol: Document 12/29/17 17:30 EA (Rec: 12/30/17 08:13 EA [id number]) Electric Stimulation Electric Stimulation Interferential Current (IFC) Body Location paralumbars Duration (Minutes) 15 Contraction Type Normal Target/Sweep Target Patient Position Hooklying Combined With Heat/Cold Hot Pack PT-OP-T Assessment and Plan Start: 11/17/17 16:42 Freq: Status: Active Protocol: Document 12/29/17 17:30 EA (Rec: 12/30/17 08:13 EA [id number]) Physical Therapy Assessment Progress Towards Goals Progress Towards Goals Progressing Toward Goals Assessment Summary Assessment Patient discharge to PT due to incoming medical treatment/ surgery. Patient have fully educated with HEP and safety use of TENS machine. At the time of discharge, patient exhibit gait improvement, however still requires constant re-inforcement of heel to toe gait pattern to form a new habit of proper gait pattern. Physical Therapy Plan Next Visit Focus/Plan Next Visit Plan Discharge to PT. Please Sign and Return: I have reviewed this Plan of Care and certify that the skilled therapy services above are required to meet the patient?s needs. Physician Signature Date Printed Name and Credentials Clinical Instructor Signature Printed Name and Credentials
== END 2018-01-08 13:27 ==
LOC: PHYS 13:45
PROVIDERS: Family Provider Physician Assistant; PCP Physician Assistant; Visit Provider Physician Assistant
DX: M54.5 Low back pain (principal); R53.1 Weakness; W19.XXXA Unspecified fall, initial encounter
CPT/HCPCS: 97014; 97110; 97140; 97535; G0283

== ENCOUNTER 2018-02-02 06:38 | Day surgery (SDC) | payer MEDICARE, OTHER, SELFPAY ==
[2018-01-19 09:14] VITALS: BMI 17.4
[2018-02-02] VITALS (8 sets, daily range): BP systolic 97–117; BP diastolic 46–79; PULSE 85–103; RESP 12–16; TEMP 36.1–36.8; O2SAT 94–99; BMI 17.4
--- NOTE | 2018-02-02 07:01 | PM.HP.1 ---
History of Present Illness Date Patient Seen: 02/02/18 Time Patient Seen: 07:01 Chief complaint: [id number] BILATERAL OPEN INGUINAL HERNIA REPAIRS Narrative: 82-year-old female with painful progressively enlarging bilateral inguinal masses consistent with hernias. 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 She has had no episodes of abdominal pain, change in bowel habits, difficulty with urination, chronic cough, nausea, vomiting, or inability to tolerate a diet. She reports normal bowel function otherwise. She presents now for planned bilateral open inguinal hernia repairs with mesh. Her history physical examination is otherwise remained essentially unchanged since her initial evaluation on December 24, 2017. Please see the chart for further details in that regard. Patient History Medical History Arthritis (Acute) Atrial fibrillation (Acute) Bruises easily (Acute) Constipation (Acute) History of diverticulosis (Acute) History of stroke (Acute ~2009) Hypercholesterolemia (Acute) Hypertension (Acute) Impaired vision (Acute) Inguinal hernia (Acute) Low back pain (Acute) Neuropathy of both feet (Acute) Pain in both hands (Acute) Seasonal allergies (Acute) Urinary frequency (Acute) Ulcerative colitis (Chronic) History of stroke (Resolved) Surgical History History of cataract extraction (Acute) History of total right hip arthroplasty (Acute) Colonoscopy planned (Resolved) H/O bilateral cataract extraction (Resolved) History of total right hip replacement (Resolved) Family & Social History Family History: Reviewed 02/02/18 by James Singh MD Social History: household members none lives independently Yes Tobacco & Substance use: Tobacco type cigarettes alcohol intake current alcohol intake frequency 0-2 drinks per day Substance Use Type does not use Meds Home Medications Medication Instructions Recorded Confirmed Type simvastatin [Zocor] 10 mg PO HS #0 07/23/12 01/19/18 History diltiazem HCl 120 mg PO QDAY #0 09/24/16 01/19/18 History [BIOTIN 5000] 1 cap PO QDAY #0 10/13/17 01/19/18 History [PROBIOTIC] 1 cap PO QDAY #0 10/13/17 01/19/18 History acetaminophen 325 mg PO Q6HP PRN #0 10/13/17 01/19/18 History amoxicillin-pot clavulanate 875 mg PO BID #14 tab 10/13/17 12/24/17 Rx [Augmentin] coenzyme Q10 [Co Q-10] 2 cap PO QDAY #0 10/13/17 01/19/18 History diclofenac sodium [Voltaren] 1 johnson TOPICAL PRN PRN #0 10/13/17 01/19/18 History erythromycin 1 applic TOPICAL QDAY #0 10/13/17 01/19/18 History ferrous gluconate 236 mg PO QDAY #0 10/13/17 01/19/18 History melatonin 5 mg PO HS #0 10/13/17 01/19/18 History multivitamin [Multiple Vitamins] 3 tab PO QDAY #0 10/13/17 01/19/18 History oxycodone-acetaminophen [Percocet] tab PO HSP PRN #0 10/13/17 12/24/17 History trazodone 25 mg PO QDAY #0 10/13/17 01/19/18 History triamcinolone acetonide 1 johnson TOPICAL BID #0 10/13/17 01/19/18 History enoxaparin 60 mg/0.6 mL 60 mg SUBCUT DAILY #6 ml 12/24/17 01/19/18 Rx subcutaneous syringe warfarin 2.5 mg tablet 5 mg PO SEEINSTR 12/24/17 01/19/18 History diltiazem HCl [Cartia XT] 120 mg PO DAILY 01/19/18 01/19/18 History warfarin 2.5 mg PO SEEINSTR 01/19/18 01/19/18 History Allergies Allergy/AdvReac Type Severity Reaction Status Date / Time gabapentin [GABAPENTIN] AdvReac Unknown SIDE Unverified 12/24/17 10:31 EFFECTS metoprolol [METOPROLOL] AdvReac Unknown SUCCINATE Unverified 12/24/17 10:31 - FACIAL FLUSHING pregabalin [From LYRICA] AdvReac Unknown BAD DREAMS Unverified 12/24/17 10:31 Review of Systems Review of Systems Unchanged since the initial evaluation on December 24, 2017. Please see that document for further details. All systems reviewed & are unremarkable except as noted in HPI and below Exam Vital Signs (past 8 hours): Patient is again seen and examined this morning in the preoperative area. She remains alert oriented x3. No acute distress Sclera nonicteric Neck supple Chest clear to auscultation. Irregular rhythm. Abdomen soft, nondistended, nontender Inguinal regions remain with reducible hernias. I did not examine her in the standing position this morning. No inguinal lymphadenopathy Extremities show no clubbing, cyanosis, or edema Objective Labs Labs: No new laboratory or radiographic studies for review INR is pending this morning. Assessment & Plan Plan: Assessment/Plan Narrative: 82-year-old female with symptomatic reducible bilateral inguinal hernias. Reiterated recommendation for open bilateral inguinal hernia repair with mesh. She has been off of her warfarin for several days now. She was treated with Lovenox injections in the interim. She has held this last night and again this morning. We will check her INR in the preoperative area this morning to ensure effective total reversal of the anticoagulation. I again discussed the technical details of the operation. Risks, benefits, and alternatives were again reviewed as per the documented December 24, 2017. Patient was marked accordingly. All questions were answered to her satisfaction, and she voiced understanding. Consent was placed on the chart. We will proceed as above.
--- NOTE | 2018-02-02 07:05 | PM.PREOP ---
Pre-operative Note Interval Note Pre-op Check: History & Physical Reviewed by Physician, Exam Performed, History & Physical exam performed today and Changes H&P completed within 30 days and has changed as indicated here:: Patient again seen and examined today. History physical examination updated from December 24, 2017. New history physical examination placed on chart today. No changes since her original evaluation. INR today is 1.3. Proceed with bilateral inguinal hernia repair as planned.
[2018-02-02] MEDS: LACTATED RINGERS 1,000 ML 42 ML IV ×2 (09:46→11:17)
[2018-02-02] MEDS: CEFAZOLIN 2 GM/100 ML FROZ.PIGGY IV (10:00)
[2018-02-02] MEDS: BUPIVACAINE 0.5% (PF) 30 ML VIAL INJ (10:24)
[2018-02-02] MEDS: LIDOCAINE 1% 20 ML INJ INJ (10:25)
[2018-02-02] MEDS: SODIUM CHLORIDE IRRIG SOLUTION 250 ML, CEFAZOLIN VIAL 1 GM IRR (10:26)
--- NOTE | 2018-02-02 10:32 | SUR.OPER ---
Supine on padded OR bed, head on pillow, arms secured on padded arm boards at <90 degrees abduction, legs uncrossed, safety belt at thigh, tape over blanket over lower legs.
--- NOTE | 2018-02-02 12:19 | P.OP_ITS ---
Operative Date/Time/Diagnoses Date of procedure: 02/02/18 Time of procedure: 12:11 Pre-op diagnosis: Bilateral symptomatic inguinal hernias Post-op diagnosis: other (Bilateral symptomatic direct and indirect inguinal hernias) Procedure & Clinicians Procedure: 1. Bilateral open inguinal hernia repairs with mesh Same procedure as scheduled: Yes Indications: 82-year-old female with enlarging painful bilateral inguinal masses consistent with hernias on examination. The because of her significant symptoms interfering with her activities of daily living she was recommended to undergo open repair with mesh bilaterally. Surgeon: James Singh Click Yes if Unassisted: Yes Anesthesia Type: General Operative Notes Findings: 1. Bilateral reducible direct and indirect inguinal hernias 2. Intact round ligaments bilaterally and intact ileoinguinal nerves bilaterally Closure Type: primary Specimen(s): none sent Implants & Drains: Bilateral small size Pro Loop polypropylene mesh plug and onlay patch placed within inguinal canals Estimated Blood Loss (mL): 10 Blood products transfused: none Procedure in detail: After obtaining informed consent the patient was brought to the operating room placed supine on the table. After satisfactory induction of anesthesia the abdomen and inguinal regions were prepped and draped in usual sterile fashion. A SCOAP time-out was performed per standard protocol. Bilateral inguinal incisions were designed transversely in an existing skin crease overlying the course of the inguinal canals for distance of approximately 4 cm each. Skin and subcutaneous tissue was then infiltrated with a 1-1 mixture 1% lidocaine with 1 100,000 epinephrine and 0.5% plain Marcaine for postoperative analgesia. Attention was turned initially to repair of the left side. Skin incision was created with a 10 scalpel blade followed by the Bovie for hemostasis. Dissection proceeded through the subcutaneous tissue to the external oblique fascia. Weitlaner retractor was used to provide exposure. External oblique fascia was divided in the direction of its fibers with a 15 scalpel blade followed by Metzenbaum scissors. Edges of the fascia were secured with hemostats and elevated into the operative field. Blunt dissection exposed the rectus fascia medially, conjoined tendon anteriorly, and ileopubic tract laterally. Round ligament was bluntly encircled with the surgeon 's fingers followed by a [place] drain. Meticulous blunt dissection with DeBakey forceps was employed to skeletonize the round ligament taking great care to avoid injury to the structure as well as the ileoinguinal nerve. Findings are as above. Hernia sacs were reduced and a small lipoma was clamped with the hemostat, divided, and secured with 2 0 Vicryl tie. Mesh was brought onto the operative field and soaked in Ancef solution. Blood was placed at the internal inguinal ring and secured with interrupted 2 0 Vicryl suture. Onlay patch was placed over the floor the inguinal canal secured circumferentially with interrupted 0 Tycron sutures. Sutures were secured laterally to the ileal pubic tract and anteriorly to the conjoined tendon. Medial repair was secured to the rectus fascia. Tails of the mesh were brought around the round ligament and placed deep to the external oblique fascia where they were secured with a single 0 Tycron suture. Round ligament was placed back into its usual anatomic position and wound irrigated with copious amounts of sterile saline solution. Hemostasis was verified. The external oblique fascia was closed over the round ligament with a running at 3 0 Vicryl suture. Subcutaneous tissue was reapproximated with interrupted 3 0 Vicryl suture. Skin was closed with a running 4 0 Monocryl suture in a subcuticular fashion. Attention was turned to repair of the right side which was done in exactly identical fashion with findings as above. Following skin closure at both sites dermal adhesive was placed on the skin. Anesthesia was reversed the patient extubated in the operating room. She was taken recovery in stable condition. Complications: none Condition: stable Disposition: PACU Plan for aftercare: 1. Discharge to home 2. Resume anticoagulation therapy as previously prescribed using Lovenox and transition to warfarin 3. Follow up in surgery Clinic in 2 weeks
--- NOTE | 2018-02-02 12:30 | SUR.PHASEI ---
Pt. just c/o pressure to uppergastric region, states it is staying the same, not intensifying and not letting up; then pt. states there's an elephant on my uppe stomach. Dr. Singh notified immediately and EKG ordered. Pt. denies SOB, no diaphoresis, pt. rates the pressure at a 5 on scale 0-10. 1233 - EKG at bedside.
--- NOTE | 2018-02-02 12:43 | SUR.PHASEI ---
Both anesthesia and Dr. Singh evaluated the EKG, no concern with EKG. Dr. Singh did verbal order for stat cardiac enzymes.
[2018-02-02] MEDS: HYDROCODONE/ACET 5/325 TABLET 1 TAB PO (12:56)
[2018-02-02 14:06] LABS: Creatine Kinase 57 U/L (30-135)
[2018-02-02 14:36] LABS: Troponin I < 0.012 ng/mL (0.01-0.034)
--- NOTE | 2018-02-02 15:14 | SUR.PHASEII ---
1500 Assumed care, patient was dressed, Dr. Ga was reviewing home medication orders with the patient. Was informed that she only needed to have instructions reviewed and to be discharged. Reviewed instructions w/patient and Jonas Ga MD. Resting comfortably, mild pain upon transfer. Fresh ice pack given to take home. Dr. Ga told patient to call the surgeon's office tomorrow to clarify orders for warfarin and lovenox. To car in wheelchair by RN.
== END 2018-02-02 15:15 | disposition home or self-care (01) ==
PROVIDERS: Family Provider Physician Assistant; PCP Physician Assistant; Visit Provider Surgery
PROC: (CPT 49505; principal; 2018-02-02 07:45)
DX: K40.20 Bilateral inguinal hernia, without obstruction or gangrene, not specified as recurrent (principal); F17.210 Nicotine dependence, cigarettes, uncomplicated; Z79.01 Long term (current) use of anticoagulants; I48.91 Unspecified atrial fibrillation; Z86.73 Personal history of transient ischemic attack (TIA), and cerebral infarction without residual deficits
CPT/HCPCS: 49505; 82550; 82553; 84484; 93005; C1781; J0690; J1100; J2405; J2704; J3010

== ENCOUNTER → 2018-02-10 14:21 | Outpatient (CLI) | payer MEDICARE, OTHER, SELFPAY ==
[2018-02-10 14:57] LABS: INR 1.8 (0.9-1.3); Prothrombin Time 19.9 SECONDS (10.1-12.7)
== END ==
PROVIDERS: Family Provider Physician Assistant; PCP Physician Assistant; Visit Provider Surgery
DX: I48.91 Unspecified atrial fibrillation (principal)
CPT/HCPCS: 36415; 85610

== ENCOUNTER → 2018-03-17 11:49 | Outpatient (CLI) | payer MEDICARE, OTHER, SELFPAY ==
--- NOTE | 2018-03-17 | DI.RAD.S_ITS ---
PROCEDURE: XR LUMBAR SPINE 2-3V INDICATIONS: Segmental and somatic dysfunction of lumbar region TECHNIQUE: 3 views of the lumbar spine were acquired. COMPARISON: None. FINDINGS: Bones: 5 [id number]-[id number] vertebrae are present. Curvature of the lumbar spine convex to the left centered at L3. Minimal retrolisthesis of L3-4. No acute fractures or dislocations. Multilevel intravertebral body disc height loss and osteophyte formation. Facet joint arthropathy. Osteopenia. Soft tissues: Overlying bowel gas pattern is normal. No suspicious soft tissue calcifications. IMPRESSION: No acute fractures or dislocations. Diffuse lumbar spine degenerative change. Dictated by: Aneesh Mayberry M.D. on 03/17/2018 at 13:08 Approved by: Aneesh Mayberry M.D. on 03/17/2018 at 13:09
== END ==
PROVIDERS: PCP Physician Assistant; Visit Provider Chiropractor
DX: M99.03 Segmental and somatic dysfunction of lumbar region (principal)
CPT/HCPCS: 72100

== ENCOUNTER → 2018-03-19 09:22 | Outpatient (CLI) | payer MEDICARE, OTHER, SELFPAY | PROVIDERS: Family Provider Physician Assistant; PCP Physician Assistant; Visit Provider Physician Assistant | DX: M81.0 Age-related osteoporosis without current pathological fracture (principal); Z78.0 Asymptomatic menopausal state; Z82.62 Family history of osteoporosis; Z87.891 Personal history of nicotine dependence | CPT/HCPCS: 77080 ==

== ENCOUNTER → 2018-05-25 12:28 | Outpatient (CLI) | payer MEDICARE, OTHER, SELFPAY ==
--- NOTE | 2018-05-25 | DI.CT.S_ITS ---
PROCEDURE: CT ABDOMEN PELVIS W CON INDICATIONS: LEFT LOWER QUADRANT PAIN TECHNIQUE: After the administration of oral and intravenous contrast, 5 mm thick sections acquired from the diaphragms to the symphysis. 5 mm thick coronal and sagittal reformats were performed. For radiation dose reduction, the following was used: automated exposure control, adjustment of mA and/or kV according to patient size. COMPARISON: [facility], CT, ABDOMEN/PELVIS WITH CONTRAST, 11/06/2014, 13:55. FINDINGS: Image quality: Excellent. ABDOMEN: Lung bases: Scattered subsegmental bibasilar atelectasis and scarring.. Heart size is enlarged. Solid organs: Mild hepatic steatosis. Gallbladder unremarkable. There is a 3 mm calcification on image 22 series 2 in the region of the mirta hepatis although exact location is unclear. It is grossly unchanged since 2015 Biliary system is non-dilated. Pancreas enhances normally. Spleen is normal in size and enhancement. No adrenal nodules. Right pelvic kidney incidentally noted. No hydronephrosis. Bilateral renal cortical scarring and atrophy. Peritoneum and bowel: Stomach is distended and is unremarkable. There is questionable segmental small bowel wall thickening, for example image 48 series 2 the central pelvis however this is technically indeterminate and could be falsely accentuated by collapsed state. No free fluid or air. No definite evidence of acute diverticulitis. The appendix is not clearly identified however no suspicious pericecal inflammatory changes are identified Nodes and vessels: No retroperitoneal or mesenteric adenopathy. Aorta and inferior vena cava are normal in caliber. Miscellaneous: No ventral hernias. PELVIS: Genitourinary: Bladder wall thickness is normal. Miscellaneous: No inguinal hernias or adenopathy. Bones: No suspicious bony lesions. No vertebral body compression fractures. Diffuse discogenic changes. There is diffuse osteopenia IMPRESSION: Overall, no specific acute abnormality identified. Questionable small bowel wall thickening in the central pelvis raising the possibility of low-grade enteritis although recommend clinical correlation since evaluation is limited by collapsed state of the bowel. Elsewhere, no visualized etiology for left lower quadrant pain. Cardiomegaly. Distended appearance of the stomach. Dictated by: Jorge Bauer M.D. on 05/25/2018 at 13:57 Approved by: Jorge Bauer M.D. on 05/25/2018 at 14:08
== END ==
PROVIDERS: Family Provider Physician Assistant; PCP Physician Assistant; Visit Provider Physician Assistant
DX: R10.32 Left lower quadrant pain (principal); I51.7 Cardiomegaly; K31.89 Other diseases of stomach and duodenum
CPT/HCPCS: 74177; Q9967

== ENCOUNTER → 2018-10-11 12:53 | Outpatient (CLI) | payer MEDICARE, OTHER, SELFPAY ==
--- NOTE | 2018-10-11 | DI.MG.S_ITS ---
BILATERAL DIGITAL SCREENING MAMMOGRAM 3D/2D WITH CAD: 10/11/2018 CLINICAL: Routine screening. Family history of breast cancer. Comparison is made to exams dated: 08/12/2017 mammogram, 06/16/2016 mammogram, 06/05/2015 mammogram, and 05/01/2014 mammogram - [facility]. The tissue of both breasts is extremely dense, which lowers the sensitivity of mammography. Current study was also evaluated with a Computer Aided Detection (CAD) system. There are benign vascular calcifications in both breasts. There is a mole marker on the right breast. There are mole markers on the left breast. No significant masses, calcifications, or other findings are seen in either breast. There has been no significant interval change. IMPRESSION: There is no mammographic evidence of malignancy. A 1 year screening mammogram is recommended. This exam was interpreted at Station ID: [id number]. NOTE: For mammograms, a report in lay terms will be sent to the patient. Approximately 15% of breast malignancies will not be visualized mammographically. In the management of a palpable breast mass, a negative mammogram must not discourage biopsy of a clinically suspicious lesion. Electronically Signed By: Josafat gibbons/aditya:10/11/2018 18:22:26 letter sent: Normal Exam ACR BI-RADS Category 2: Benign Finding(s) 3342F
== END ==
PROVIDERS: Family Provider Physician Assistant; PCP Physician Assistant; Visit Provider Physician Assistant
DX: Z12.31 Encounter for screening mammogram for malignant neoplasm of breast (principal); Z80.3 Family history of malignant neoplasm of breast
CPT/HCPCS: 77063; 77067

== ENCOUNTER → 2019-04-12 12:55 | Outpatient (CLI) | payer MEDICARE, OTHER, SELFPAY ==
[2019-04-12 14:02] LABS: Blood Urea Nitrogen 17 mg/dL (7-17); Estimated Glomerular Filt Rate > 60.0 mL/min (>60)
--- NOTE | 2019-04-12 14:12 | DI.CT.S_ITS ---
PROCEDURE: CT ABDOMEN PELVIS W CON INDICATIONS: R inguinal pain status post hernia repair and R hip replacement TECHNIQUE: After the administration of oral and intravenous contrast, 5 mm thick sections acquired from the diaphragms to the symphysis. 5 mm thick coronal and sagittal reformats were performed. For radiation dose reduction, the following was used: automated exposure control, adjustment of mA and/or kV according to patient size. COMPARISON: [facility], CT, CT ABDOMEN PELVIS W CON, 05/25/2018, 13:32. FINDINGS: Image quality: There is metallic streak artifact from patient's right hip prosthesis. ABDOMEN: Lung bases: There is mild scarring in the left lung base. Heart size is enlarged. Solid organs: Evaluation of the liver demonstrates no focal hepatic lesions. The gallbladder is elongated without wall thickening or calcified gallstones. Biliary system is non-dilated. Pancreas enhances normally. Spleen is normal in size and enhancement. No adrenal nodules. Kidneys demonstrate no hydronephrosis. Peritoneum and bowel: Stomach and small bowel loops are normal in caliber and wall thickness. There are segments of mild colonic wall thickening suggestive of a mild colitis. There is colonic diverticulosis without acute diverticulitis. No free fluid or air. Nodes and vessels: No retroperitoneal or mesenteric adenopathy. Aorta and inferior vena cava are normal in caliber. Miscellaneous: No ventral hernias. PELVIS: Genitourinary: Bladder wall thickness is normal. Miscellaneous: No inguinal hernias or adenopathy. Bones: No suspicious bony lesions. No vertebral body compression fractures. IMPRESSION: 1. Mild wall thickening involving a few colonic segments suggestive of a mild colitis. 2. No evidence of recurrent inguinal hernia. Dictated by: Asim Keyes M.D. on 04/12/2019 at 18:53 Approved by: Asim Keyes M.D. on 04/12/2019 at 19:00
== END ==
PROVIDERS: PCP Internal Medicine; Visit Provider Surgery
DX: R10.31 Right lower quadrant pain (principal); Z96.641 Presence of right artificial hip joint; Z98.890 Other specified postprocedural states; I51.7 Cardiomegaly; K57.90 Diverticulosis of intestine, part unspecified, without perforation or abscess without bleeding
CPT/HCPCS: 36415; 74177; 82565; 84520; Q9967

== ENCOUNTER → 2019-07-07 14:17 | Outpatient (CLI) | payer MEDICARE, OTHER, SELFPAY ==
--- NOTE | 2019-07-07 | DI.RAD.S_ITS ---
PROCEDURE: XR CHEST 2V INDICATIONS: COUGH TECHNIQUE: 2 views of the chest were acquired. COMPARISON: [facility], , CHEST 2 VIEW, 01/02/2015, 9:42. FINDINGS: Surgical changes and devices: None. Lungs and pleura: Left basilar infiltrate consistent with pneumonia. Hyperinflation consistent with COPD. No pleural effusions or pneumothorax. Mediastinum: Mediastinal contours are normal. Heart size is normal. Bones and chest wall: No suspicious bony abnormalities. Soft tissues appear unremarkable. Scoliosis. IMPRESSION: 1. Left basilar pneumonia. 2. COPD. Dictated by: Starla Shaffer M.D. on 07/07/2019 at 15:53 Approved by: Starla Shaffer M.D. on 07/07/2019 at 15:56
== END ==
PROVIDERS: PCP Internal Medicine; Visit Provider Internal Medicine
DX: J18.9 Pneumonia, unspecified organism (principal); J44.9 Chronic obstructive pulmonary disease, unspecified; R05 Cough
CPT/HCPCS: 71046

== ENCOUNTER → 2019-07-15 13:27 | Outpatient (CLI) | payer MEDICARE, OTHER, SELFPAY | PROVIDERS: PCP Internal Medicine; Visit Provider Internal Medicine | DX: M81.0 Age-related osteoporosis without current pathological fracture (principal); Z78.0 Asymptomatic menopausal state; Z82.62 Family history of osteoporosis; Z87.891 Personal history of nicotine dependence | CPT/HCPCS: 77080; 77081 ==

== ENCOUNTER → 2019-09-07 14:29 | Outpatient (CLI) | payer MEDICARE, OTHER, SELFPAY ==
--- NOTE | 2019-09-07 14:33 | DI.RAD.S_ITS ---
PROCEDURE: XR SHOULDER RT MIN 2V INDICATIONS: shoulder pain s/p fall 07/19/2019 TECHNIQUE: 3 views of the shoulder were acquired. COMPARISON: None. FINDINGS: Bones: No fractures or dislocations. No suspicious bony lesions. Visualized ribs appear intact. Soft tissues: No suspicious soft tissue calcifications. IMPRESSION: No fracture or dislocation found. Dictated by: Yovani Marina M.D. on 09/07/2019 at 15:14 Approved by: Yovani Marina M.D. on 09/07/2019 at 15:14
== END ==
PROVIDERS: PCP Internal Medicine; Referring Provider Physical Medicine & Rehabilitation; Visit Provider Physical Medicine & Rehabilitation
DX: M75.41 Impingement syndrome of right shoulder (principal); M25.511 Pain in right shoulder; M48.061 Spinal stenosis, lumbar region without neurogenic claudication
CPT/HCPCS: 73030; 99213

== ENCOUNTER → 2019-11-18 10:13 | Outpatient (CLI) | payer MEDICARE, OTHER, SELFPAY ==
[2019-11-18 11:46] LABS: Alanine Aminotransferase 19 IU/L (<35); Albumin 4.4 g/dL (3.5-5.0); Albumin Globulin Ratio 1.3 (1.0-2.8); Alkaline Phosphatase 58 U/L (38-126); Aspartate Aminotransferase 32 IU/L (14-36); BUN Creatinine Ratio 30.8 (6-22); Bilirubin Total 1.1 mg/dL (0.2-1.3); Blood Urea Nitrogen 20 mg/dL (7-17); Calcium 9.8 mg/dL (8.4-10.2); Carbon Dioxide 31 mmol/L (22-32); Chloride 100 mmol/L (98-107); Cholesterol 158 mg/dL (140-199); Estimated Glomerular Filt Rate > 60.0 mL/min (>60); Globulin 3.5 g/dL (1.7-4.1); Glucose 99 mg/dL (80-110); HDL Cholesterol 61 mg/dL (40-60); HEMOLYSIS < 15 (0-50); LDL Cholesterol Calculated 80 mg/dL (<100); Potassium 4.1 mmol/L (3.4-5.1); Sodium 139 mmol/L (137-145); Total Protein 7.9 g/dL (6.3-8.2); Triglycerides 86 mg/dL (35-150)
== END ==
PROVIDERS: PCP Internal Medicine; Referring Provider Internal Medicine; Visit Provider Internal Medicine
DX: E78.2 Mixed hyperlipidemia (principal); M81.0 Age-related osteoporosis without current pathological fracture
CPT/HCPCS: 36415; 80053; 80061

== ENCOUNTER → 2020-01-25 07:52 | Outpatient (CLI) | payer MEDICARE, OTHER, SELFPAY ==
--- NOTE | 2020-01-25 08:08 | DI.ECHO.S_ITS ---
Echocardiogram Report + + :Name: DANIEL LION Study Date: 01/25/2020 Height: 64 in : :[facility] Weight: 96 lb : : Gender: Female BSA: 1.4 m2 : :: 1935 Age: 84 yrs BP: 98/54 mmHg: :Reason For Study: Mitral Regurgitation : :Ordering Physician: Ambika : :Luc Pineda Performed By: Ramona Oconnell : :Referring: AMBIKA PINEDA : + + Interpretation Summary The left ventricle is normal in size and wall thickness. The ejection fraction is estimated to be 60-65%. The right ventricle is normal in size and function. Doppler evidence suggests a left to right interatrial shunt. There is severe biatrial enlargement. There is mild mitral valve prolapse. There is prolapse of the posterior mitral valve leaflet(s). There is moderate mitral regurgitation. Compared to the prior echo study, there has been no change in the severity of mitral regurgitation. There is moderate tricuspid regurgitation. The right ventricular systolic pressure is estimated to be at least 33 mmHg based on an estimated right atrial pressure of 8 mm Hg. Compared to the prior echo exam, there has been an increase in the severity of pulmonary hypertension. The ascending aorta is mildly enlarged. Procedure: A two-dimensional transthoracic echocardiogram with color flow and Doppler was performed. The study quality was technically good. Comparison is made with the echocardiogram of 04/02/2018. The patient was in atrial fibrillation with heart rates between 65-85 bpm during the exam. Left Ventricle: The left ventricle is normal in size and wall thickness. There is no thrombus. The ejection fraction is estimated to be 60-65%. There are no focal wall motion abnormalities. Diastolic function could not be accurately assessed due to atrial fibrillation. E/E' med: 12.4. Right Ventricle: The right ventricle is normal in size and function. Atria: The left atrium is severely dilated. The left atrium has mildly increased in size since the prior echo exam. There is severe biatrial enlargement. The right atrium is severely dilated. Doppler evidence suggests a left to right interatrial shunt. Mitral Valve: There is moderate mitral annular calcification. The mitral valve leaflets appear mildly thickened, but open well. There is a flat closure plane of the the mitral valve leaflets. There is prolapse of the posterior mitral valve leaflet(s). There is mild mitral valve prolapse. There is moderate mitral regurgitation. Compared to the prior echo study, there has been no change in the severity of mitral regurgitation. Aortic Valve: The aortic valve is trileaflet. The aortic valve opens well. The aortic valve is mildly calcified. There is no aortic valve stenosis. There is mild aortic regurgitation. Compared to the prior echo study, there has been no change in the severity of aortic regurgitation. Tricuspid Valve: The tricuspid valve is normal. There is moderate tricuspid regurgitation. The right ventricular systolic pressure is estimated to be at least 33 mmHg based on an estimated right atrial pressure of 8 mm Hg. Compared to the prior echo exam, there has been an increase in the severity of pulmonary hypertension. Pulmonic Valve: The pulmonic valve is normal in structure and function. There is no pulmonic valvular regurgitation. Great Vessels: The aortic root is normal size. The ascending aorta is mildly enlarged. The IVC is of normal diameter and collapses less than 50% with a sniff. This suggests a right atrial pressure of 8 mm Hg. Pericardium/ Pleura There is no pericardial effusion. There is no pleural effusion. MMode/2D Measurements & Calculations LVIDd: 4.4 cm LVOT diam: 1.9 cm LVIDs: 2.8 cm Ao root diam: 3.2 cm FS: 35.1 % asc Aorta Diam: 3.5 cm EPSS: 0.47 cm Ao Arch Diam (Prox Trans): 2.6 cm IVSd: 0.54 cm LVPWd: 0.57 cm LV vargas. diameter/BSA (cm/m^2): 3.0 LV sys. diameter/BSA (cm/m^2): 2.0 LA A2 area: 27.8 cm2 RA long axis: 5.7 cm LA A4 area: 25.4 cm2 RA area: 25.8 cm2 LA length (vol): 6.0 cm RA vol: 99.9 ml LA vol: 99.0 ml RA : 69.7 ml/m2 LA vol index: 69.1 ml/m2 IVC diam: 2.0 cm RVD1 (basal): 3.8 cm TAPSE: 1.8 cm Doppler Measurements & Calculations Ao V2 max: 125.3 cm/sec LVOT Max Cl: 89.3 cm/sec Ao V2 mean: 84.1 cm/sec LV V1 max P.2 mmHg Ao max P.3 mmHg LV V1 VTI: 18.7 cm Ao mean P.3 mmHg AVINASH(I,D): 1.9 cm2 Ao V2 VTI: 27.0 cm AVINASH(V,D): 1.9 cm2 sev ratio: 0.69 AVINASH indexed to BSA (cm^2/m^2): 1.3 AI P1/2t: 627.7 msec AI dec slope: 165.2 cm/sec2 MV E max cl: 103.3 cm/sec TR max cl: 237.1 cm/sec MV A max cl: 0.65 cm/sec TR max P.5 mmHg MV E/A: 157.7 PA V2 max: 77.4 cm/sec Med Peak E' Cl: 8.3 cm/sec PA V2 mean: 53.0 cm/sec E/E' med: 12.4 PA mean P.3 mmHg Lat Peak E' Cl: 10.3 cm/sec E/E' lat: 10.0 E/e' average: 11.2 MV dec time: 0.19 sec SV(LVOT): 50.4 ml Reading Physician:05:21 PM
== END ==
PROVIDERS: PCP Internal Medicine; Referring Provider Internal Medicine; Visit Provider Internal Medicine Cardiovascular Disease
DX: I08.3 Combined rheumatic disorders of mitral, aortic and tricuspid valves (principal); I77.89 Other specified disorders of arteries and arterioles
CPT/HCPCS: 93306

== ENCOUNTER 2020-01-30 11:15 | Outpatient (RCR) | payer MEDICARE, OTHER, SELFPAY ==
--- NOTE | 2019-12-22 19:10 | PT.OIE ---
Current Diagnoses Muscle weakness (generalized) (12/22/19) Impingement syndrome of unspecified shoulder (12/22/19) Abnormal posture (12/22/19) Past Medical History (Last Updated 09/07/19 @ 13:59 by Ayden Lino DO) Arthritis (Acute) Atrial fibrillation (Acute) Bruises easily (Acute) Constipation (Acute) History of diverticulosis (Acute) History of stroke (Resolved) History of stroke (Acute ~2009) Hypercholesterolemia (Acute) Hypertension (Acute) Impaired vision (Acute) Inguinal hernia (Acute) Low back pain (Acute) Lumbar foraminal stenosis (Acute) Neuropathy of both feet (Acute) Pain in both hands (Acute) Pain in joint involving left pelvic region and thigh (Acute) Rotator cuff impingement syndrome of right shoulder (Acute) Scoliosis due to degenerative disease of spine in adult patient (Acute) Seasonal allergies (Acute) Ulcerative colitis (Chronic) Urinary frequency (Acute) Past Surgical History (Last Reviewed 09/07/19 @ 13:57 by Ayden Lino DO) Colonoscopy planned (Resolved) H/O bilateral cataract extraction (Resolved) History of cataract extraction (Acute) History of total right hip arthroplasty (Acute) History of total right hip replacement (Resolved) Visit Care Team Role Provider Type Mayra Schultz MD Primary Care Provider Physician Specialty: Internal Medicine Address: [address] [place] [address] Email: [email or web address] Ayden Lino DO Attending Provider Physician Referring Provider Specialty: Physiatry Pain Management Address: [address] [place] [address], [id number] Email: [email or web address] Physical Therapy Initial Evaluation PT-OP-A Visit Information Start: 12/22/19 09:52 Freq: Status: Active Protocol: Document 12/22/19 09:52 LRN (Rec: 12/22/19 10:45 LRN [id number]) Out-Patient Physical Therapy Visit Information Visit Information Visit Type Initial Evaluation Visit Start Time 09:52 Visit Stop Time 10:45 Total Visit Minutes 53 Visit Number 1 Evaluation Information Evaluation Date 12/22/19 Precautions Precautions 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 Current Complaints R LBP & R shoulder pain History of Current Condition States she went to see Dr. Carrasco for her back and R shoulder pain. Currently she feels her R shoulder is fine, except when she sleeps too long on her shoulder and had pain when trying to open a sliding glass window. Minimal bother of R shoulder only because she is R handed. States the low back pain is bothersome when leaning over to brush teeth, make bed, do dishes. Pain is on the R posterolateral side and only on the L when doing prolonged activities as previously mentioned. Any leaning over for 3-5' or more causes sharp stabbing pain, usually on the R. Today sharp pain in L posterolateral LB with sit to stand Prior Treatments and Tests Chiropractor treatments and acupuncture for past 4 yrs, with relief attending 2-3x/ week. Was told to do dishes standing with R foot up on stool. She hasn't because of instability . Future Testing and Treatments Planned No plans at this time. Covid restrictions in place at this time. Developmental History Developmental History Inguinal hernia repair 2 yrs ago. Treatment Goals Patient/Caregiver Goals Pt goals: 1) [place] teeth without back pain. 2) Wash dishes without back pain. 3) Transfer (sit to stand) without back pain. 4) Make her bed without back pain. 5) HEP for strengthening of R shoulder. Prior Functional Status Baseline Function- ADL's Independent Baseline Function- Mobility Independent Baseline Function- Gait Ambs without an assistive device. Baseline Function- Other Back pain her entire adult life due to scoliosis. Current Functional Impairments (Reported) Functional Limitations- ADL's LBP limits: making beds, brushing teeth, washing dishes , sometimes with sit to stand. R shoulder: hindered with moving of sliding window. Functional Limitations- Mobility/Gait Uses a shopping cart for stability with gait. 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 Fell because shoe caught on ground and landed on R shoulder. Fell again almost a yr ago was walking and looking around and foot caught on a clump of concrete on sidewalk and fell onto R shoulder. R foot catches. Patient Questionnaires Quick Dash- Upper Extremity Quick Dash UE Score 20.45 Quick Dash UE Impairment 20 to 39% Impaired (Score 20- 39) OP-PT Pain Assessment Pain Assessment Grid Paper Pain Assessment Grid Completed Yes Comments Pain Comments Minimal bother of R shoulder only because she is R handed. States pain today is on the R posterolateral side rated 3/10 and sharp on the pain assessment grid, but pt verbally reported 5/5 on right and minimal on left. Pain today on the L LB rated 5 /10 on the pain assessment grid, but pt verbally reported she has less pain on the left compared to the right. Today she reported during the evaluation sharp pain in L posterolateral LB with sit to stand PT-OP-E Functional Tests Start: 12/22/19 09:52 Freq: Status: Active Protocol: Document 12/22/19 09:52 LRN (Rec: 12/23/19 18:30 LRN [id number]) Functional Tests Apley's Scratch Test Action 1- Left Above spine of Scapula Action 1- Right Above spine of Scapula Action 2- Left T3 Action 2- Right T3 Action 3- Left L1 Action 3- Right L1 PT-OP-G Mobility & Gait Start: 12/22/19 09:52 Freq: Status: Active Protocol: Document 12/22/19 09:52 LRN (Rec: 12/23/19 18:30 LRN [id number]) OP Mobility Evaluation Bed Mobility Supine to and from Sit Independent with poor form: quick lying down in a partial sit up position. Transfers Sit to Stand Independent with sharp pain complain on L posterolateral low back region. OP Gait Assessment Gait Gait Assistance Required: Independent,Standby Assistance Distance (Feet) 75 Able to Maintain Weight Bearing Status Yes During Gait Assistive Devices Assistive Device None Gait Deviations General Gait Pattern Decreased Feet Clearance, Lateral Trunk Lean Factors Limiting Gait Function Factors Limiting Gait Function Abnormal Tonal Influences, Decreased Strength,Poor Safety Awareness Comments Gait Comments Pt has R foot drop, and although aware of need to clear foot from the ground, is not able to 10% of the time when walking on linoleum. She does not appear to have a problem on carpeting. PT-OP-H Neuro Start: 12/22/19 09:52 Freq: Status: Active Protocol: Document 12/22/19 09:52 LRN (Rec: 12/23/19 18:30 LRN [id number]) Sensation Evaluation Gross Sensation Gross Sensation WNL PT-OP-J Posture/Palpation/Skin Start: 12/23/19 18:52 Freq: Status: Active Protocol: Document 12/22/19 09:52 LRN (Rec: 12/23/19 18:55 LRN [id number]) Posture Evaluation Position Standing Evaluation View Posterior T-Spine Posture Flexible Scoliosis on (R) L-Spine Posture Fixed Scoliosis on (L) Comments Posture Comments Pt stood with feet together, R hip flexed 4 deg's, L hip extended 4 deg's. L shoulder/scapula is low & R Iliac Crest is low. Atrophy is present in R Quadratus Lumborum. Palpation Assessment Location R QL Palpation Location R QL Palpation Details Atrophy PT-OP-K Range of Motion Start: 12/22/19 09:52 Freq: Status: Active Protocol: Document 12/22/19 09:52 LRN (Rec: 12/23/19 18:30 LRN [id number]) Lumbar Spine Range of Motion Lumbar Spine Active Percentage Testing Position Standing Flexion 30 Extension 60 Rotation Left 10 Rotation Right 25 Lateral Flexion Left 25 Lateral Flexion Right 25 Shoulder Goniometric Range of Motion Shoulder Right Active Shoulder ROM WFL Yes Testing Position Sitting Flexion 130 Internal Rotation Behind Back (text) L1 Left Active Shoulder ROM WFL Yes Testing Position Sitting Flexion 130 Internal Rotation Behind Back (text) L1 PT-OP-M Strength Start: 12/22/19 09:52 Freq: Status: Active Protocol: Document 12/22/19 09:52 LRN (Rec: 12/23/19 18:30 LRN [id number]) Trunk Strength Trunk Manual Muscle Testing Testing Position Sitting Comments Strength is 5/5, but pt had pain in the R lower back in area of Quadratus Lumborum. Shoulder Strength Shoulder Manual Muscle Testing Right Comments General strength is 5/5 except testing of ER caused pain in the posterior scapula radiating to the medial upper arm. Left Comments General strength is 5/5. PT-OP-Q Treatments Start: 12/22/19 09:52 Freq: Status: Active Protocol: Document 12/22/19 09:52 LRN (Rec: 12/23/19 18:30 LRN [id number]) Therapeutic Exercises Supine Exercises LB stretch Supine Exercise Name DKTC Side bilateral Reps/Minutes 10 x 6 Comments Education & training for proper pull and positioning. Therapeutic Activity Therapeutic Activity Sit <-> Supine Name Sit <-> Supine transfer training Reps/Minutes 3' Comments Pt needed physical and verbal cuing for transfer to the left side and in good form before dropping feet off the bed. Self-Care/Home Management Treatment Education Other Education Discussed results of evaluation. Activities Self-Care/Home Management Activities I/S pt in HEP of LB stretch with education on stretch maximum and cautions of exercise (overstretching). PT-OP-T Assessment and Plan Start: 12/22/19 09:52 Freq: Status: Active Protocol: Document 12/22/19 09:52 LRN (Rec: 12/23/19 18:30 LRN [id number]) Physical Therapy Assessment Evaluation Complexity Number of Personal Factors/Comorbidities 3 or More Number of Body Systems Impaired 4 or More Clinical Presentation at Evaluation Evolving Impairments Impairments Activity Tolerance,Functional Mobility,Pain,Posture,ROM,Soft Tissue Mobility,Strength Other Concerns Fall Risk Yes Age Related Concerns Lives alone, closest relative in [place], [place]. Barriers to Rehabilitation Lives alone Goals Three Impairment LB weakness causing LBP and posterolateral back pain of 5/ 10 (R>L) Short Term Goal (STG) Pt will be able to perform a quick timed activity (less than 3') of brushing her teeth without low back pain. STG Duration 01/26/20 Correction Goal (LTG) Patient will be able to wash her dishes with LBP no greater than of 1/10. LTG Duration 02/21/20 Two Impairment Decreased Trunk mobility resulting in LBP Short Term Goal (STG) Pt will be able to transfer sit to stand without onset of sharp back pain. STG Duration 01/26/20 Correction Goal (LTG) Pt will be able to make her bed with pain no greater than 1/10, with positional rest breaks during the activity. (Initial trunk AROM: Flex 25 deg's with 18 deg's hip flex and starting at 10 deg's, ext 5 deg's with 5 deg's hip ext, rot 5 deg's left, 10 deg's right; SB 5 deg's bilaterally) LTG Duration 02/21/20 One Impairment Pt lacks an appropriate self care HEP for R shoulder & low back. Short Term Goal (STG) Pt will be independent in a self care HEP of R shoulder strengthening exercises. STG Duration 01/05/20 Body And Fender Mechanic Goal (LTG) Pt will be independent in a self care HEP to manage her low back pain. LTG Duration 02/21/20 Assessment Summary Assessment Pt presents with history of ongoing low back sharp pain that has recently worsened, causing her to have difficulty with functional activities that requires her to bend at the trunk for any time over 3- 5 minutes. Her pain appears to be mechanical in nature due to an obvious scoliosis of the spine, with decreased trunk mobility/strength and secondary soft tissue dysfunction and pain. Her R shoulder appears to have almost resolved. She presents with a probable R rotator cuff dysfunction and weakness, resulting in pain with use for strenuous activities ( moving a sliding glass window) and with prolonged positioning on the shoulder at nighttime. From her subjective reports her R shoulder pain is temporary and fine, and resolves with changing her position by rolling off her shoulder. She would benefit from skilled physical therapy to improve the mechanics and soft tissue mobility and strength of the low back as well as placing her on a HEP of R shoulder strengthening exercises to improve the stability and strength of her shoulder. The pt chooses not to focus on her R shoulder at this time and would prefer to be treated for her low back except to receive a shoulder HEP. Physical Therapy Plan Frequency and Duration Frequency of Treatment 2x/Week Duration of Treatment 8 weeks Plan of Care Start Date 12/22/19 Plan of Care End Date 02/21/20 Therapeutic Interventions Therapeutic Interventions Home Exercise Program,Joint Mobilizations,Manual Therapy, Neuromuscular Re-education, Patient/Caregiver Education, Self-Care/Home Management,Soft Tissue Mobilization, Therapeutic Activities, Therapeutic Exercises Modalities Cold Pack/Ice Massage,Electric Stimulation,Hot Packs Other Referrals/Consults Referrals/Consults Recommended Recommend once her back and shoulder rehabilitation program has completed, that she be referred to therapy to focus on improving her balance and gait in order to reduce her risk of falling. Next Visit Focus/Plan Next Note Type Treatment Note Next Visit Plan Modalities at end only if needed due to HX: leg/face CA, RTHA, Latex Allergy. ORION Initiate progression of a R shoulder HEP (non-latex TBand) for strengthening, with emphasis on RC. Hip strength and mobility check. Core/Hip strengthening & ROM exercises. Assess gait or balance as needed if effecting low back and pain. Correct standing posture per pt education and training.
--- NOTE | 2019-12-29 12:06 | PT.OTN ---
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 Current Complaints R LBP & R shoulder pain History of Current Condition States she went to see Dr. Carrasco for her back and R shoulder pain. Currently she feels her R shoulder is fine, except when she sleeps too long on her shoulder and had pain when trying to open a sliding glass window. Minimal bother of R shoulder only because she is R handed. States the low back pain is bothersome when leaning over to brush teeth, make bed, do dishes. Pain is on the R posterolateral side and only on the L when doing prolonged activities as previously mentioned. Any leaning over for 3-5' or more causes sharp stabbing pain, usually on the R. Today sharp pain in L posterolateral LB with sit to stand Prior Treatments and Tests Chiropractor treatments and acupuncture for past 4 yrs, with relief attending 2-3x/ week. Was told to do dishes standing with R foot up on stool. She hasn't because of instability . Future Testing and Treatments Planned No plans at this time. Covid restrictions in place at this time. Developmental History Developmental History Inguinal hernia repair 2 yrs ago. Treatment Goals Patient/Caregiver Goals Pt goals: 1) [place] teeth without back pain. 2) Wash dishes without back pain. 3) Transfer (sit to stand) without back pain. 4) Make her bed without back pain. 5) HEP for strengthening of R shoulder. Prior Functional Status Baseline Function- ADL's Independent Baseline Function- Mobility Independent Baseline Function- Gait Ambs without an assistive device. Baseline Function- Other Back pain her entire adult life due to scoliosis. Current Functional Impairments (Reported) Functional Limitations- ADL's LBP limits: making beds, brushing teeth, washing dishes , sometimes with sit to stand. R shoulder: hindered with moving of sliding window. Functional Limitations- Mobility/Gait Uses a shopping cart for stability with gait. 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 No pain with new ex after altering posture. PT-OP-E Functional Tests Start: 12/22/19 09:52 Freq: Status: Active Protocol: Document 12/22/19 09:52 LRN (Rec: 12/23/19 18:30 LRN [id number]) Functional Tests Apley's Scratch Test Action 1- Left Above spine of Scapula Action 1- Right Above spine of Scapula Action 2- Left T3 Action 2- Right T3 Action 3- Left L1 Action 3- Right L1 PT-OP-G Mobility & Gait Start: 12/22/19 09:52 Freq: Status: Active Protocol: Document 12/22/19 09:52 LRN (Rec: 12/23/19 18:30 LRN [id number]) OP Mobility Evaluation Bed Mobility Supine to and from Sit Independent with poor form: quick lying down in a partial sit up position. Transfers Sit to Stand Independent with sharp pain complain on L posterolateral low back region. OP Gait Assessment Gait Gait Assistance Required: Independent,Standby Assistance Distance (Feet) 75 Able to Maintain Weight Bearing Status Yes During Gait Assistive Devices Assistive Device None Gait Deviations General Gait Pattern Decreased Feet Clearance, Lateral Trunk Lean Factors Limiting Gait Function Factors Limiting Gait Function Abnormal Tonal Influences, Decreased Strength,Poor Safety Awareness Comments Gait Comments Pt has R foot drop, and although aware of need to clear foot from the ground, is not able to 10% of the time when walking on linoleum. She does not appear to have a problem on carpeting. PT-OP-H Neuro Start: 12/22/19 09:52 Freq: Status: Active Protocol: Document 12/22/19 09:52 LRN (Rec: 12/23/19 18:30 LRN [id number]) Sensation Evaluation Gross Sensation Gross Sensation WNL PT-OP-J Posture/Palpation/Skin Start: 12/23/19 18:52 Freq: Status: Active Protocol: Document 12/22/19 09:52 LRN (Rec: 12/23/19 18:55 LRN [id number]) Posture Evaluation Position Standing Evaluation View Posterior T-Spine Posture Flexible Scoliosis on (R) L-Spine Posture Fixed Scoliosis on (L) Comments Posture Comments Pt stood with feet together, R hip flexed 4 deg's, L hip extended 4 deg's. L shoulder/scapula is low & R Iliac Crest is low. Atrophy is present in R Quadratus Lumborum. Palpation Assessment Location R QL Palpation Location R QL Palpation Details Atrophy PT-OP-K Range of Motion Start: 12/22/19 09:52 Freq: Status: Active Protocol: Document 12/22/19 09:52 LRN (Rec: 12/23/19 18:30 LRN [id number]) Lumbar Spine Range of Motion Lumbar Spine Active Percentage Testing Position Standing Flexion 30 Extension 60 Rotation Left 10 Rotation Right 25 Lateral Flexion Left 25 Lateral Flexion Right 25 Shoulder Goniometric Range of Motion Shoulder Right Active Shoulder ROM WFL Yes Testing Position Sitting Flexion 130 Internal Rotation Behind Back (text) L1 Left Active Shoulder ROM WFL Yes Testing Position Sitting Flexion 130 Internal Rotation Behind Back (text) L1 PT-OP-M Strength Start: 12/22/19 09:52 Freq: Status: Active Protocol: Document 12/22/19 09:52 LRN (Rec: 12/23/19 18:30 LRN [id number]) Trunk Strength Trunk Manual Muscle Testing Testing Position Sitting Comments Strength is 5/5, but pt had pain in the R lower back in area of Quadratus Lumborum. Shoulder Strength Shoulder Manual Muscle Testing Right Comments General strength is 5/5 except testing of ER caused pain in the posterior scapula radiating to the medial upper arm. Left Comments General strength is 5/5. PT-OP-Q Treatments Start: 12/22/19 09:52 Freq: Status: Active Protocol: Document 12/29/19 09:46 LRN (Rec: 12/29/19 10:38 LRN [id number]) Therapeutic Exercises Sitting Exercises Scapular Depression Sitting Exercise Name Scapular depression Side right Resistance Lev 1 LATEX FREE T-Band ( orange) Reps/Minutes 3' (12 reps) Comments Extra time to train for scap depression. Shoulder press Sitting Exercise Name Shoulder flex starting with elbow in max flex. Side right Reps/Minutes 10x Chest Press Sitting Exercise Name Chest Press Side bilateral Resistance None Reps/Minutes 15x Comments Modifications needed to keep from having UT discomfort L side Row Sitting Exercise Name L Side row Side left Resistance Lev 1 LATEX FREE T-Band ( orange) Row Sitting Exercise Name Row - Scap retract Side bilateral Resistance Lev 1 LATEX FREE T-Band ( orange) Reps/Minutes 10x Comments Training & V cuing for proper posturing Shoulder IR Sitting Exercise Name Shoulder IR with scap retracted and head to ceiling Side bilateral Resistance Lev 1 LATEX FREE T-Band ( orange) Reps/Minutes 7' Comments Postural training for doing ex to avoid R shoulder clicking Shoulder ER Sitting Exercise Name Shoulder ER with elbows 0 deg' s Side bilateral Resistance Lev 1 LATEX FREE T-Band ( orange) Reps/Minutes 12x Comments Pt was instructed to do sets of 8 reps. Gait Training Gait Activity Toe off Description Max glut contraction during toe off phase Device Used Wall bar Level of Assistance phys & v. cuing Surface level Distance/Duration 14' Treatment Focus Max gluteal contraction during toe off phase and proper gait mechanics(H>T) Self-Care/Home Management Treatment Education Patient Education Home Exercise Program Activities Self-Care/Home Management Activities Reviewed & issued HEP: Scap retract (ruby & L only), shoulder press, T-Band shldr ER/IR strengthening. Some instructions written for clarification of handout and to help pt with recall of ex at home. Pt reminded to relieve pain in R shoulder with ER she needed to lift chest and extend head to ceiling. PT-OP-T Assessment and Plan Start: 12/22/19 09:52 Freq: Status: Active Protocol: Document 12/29/19 09:46 LRN (Rec: 12/29/19 10:38 LRN [id number]) Physical Therapy Assessment Goals Three Impairment LB weakness causing LBP and posterolateral back pain of 5/ 10 (R>L) Short Term Goal (STG) Pt will be able to perform a quick timed activity (less than 3') of brushing her teeth without low back pain. STG Duration 01/26/20 Custodial Goal (LTG) Patient will be able to wash her dishes with LBP no greater than of 1/10. LTG Duration 02/21/20 Two Impairment Decreased Trunk mobility resulting in LBP Short Term Goal (STG) Pt will be able to transfer sit to stand without onset of sharp back pain. STG Duration 01/26/20 Custodial Goal (LTG) Pt will be able to make her bed with pain no greater than 1/10, with positional rest breaks during the activity. (Initial trunk AROM: Flex 25 deg's with 18 deg's hip flex and starting at 10 deg's, ext 5 deg's with 5 deg's hip ext, rot 5 deg's left, 10 deg's right; SB 5 deg's bilaterally) LTG Duration 02/21/20 One Impairment Pt lacks an appropriate self care HEP for R shoulder & low back. Short Term Goal (STG) Pt will be independent in a self care HEP of R shoulder strengthening exercises. (12/29/19: Progressing, needs scapular & deltoid strengthening) STG Duration 01/05/20 Custodial Goal (LTG) Pt will be independent in a self care HEP to manage her low back pain. LTG Duration 02/21/20 Progress Towards Goals Progress Comments Added HEP for shoulder strengthening to progress towards improved functioni of making beds Assessment Summary Assessment Held chest press and scapular depression HEP due to pt not able to remember ex and handouts not available. Might try other positions to achieve strengthening of these ex's for her. Good tolerance to ex with no complaints of pain after correcting for postural slumping (forward rounding of shoulders) during ex. Physical Therapy Plan Frequency and Duration Frequency of Treatment 2x/Week Duration of Treatment 8 weeks Plan of Care Start Date 12/22/19 Plan of Care End Date 02/21/20 Next Visit Focus/Plan Next Note Type Treatment Note Next Visit Plan Modalities at end only if needed due to HX: leg/face CA, RTHA, Latex Allergy. ORION Complete R shoulder HEP (non- latex TBand) for strengthening by adding scapular & deltoid exs (emphasis on RC). HEP: Start low level core/hip ROM & strengthening. Check Hip strength and mobility. Progress Core/Hip strengthening & ROM exercises. Assess gait or balance as needed if effecting low back and pain. Correct standing posture per pt education and training.
--- NOTE | 2020-01-02 16:12 | PT.OTN ---
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 Current Complaints R LBP & R shoulder pain History of Current Condition States she went to see Dr. Carrasco for her back and R shoulder pain. Currently she feels her R shoulder is fine, except when she sleeps too long on her shoulder and had pain when trying to open a sliding glass window. Minimal bother of R shoulder only because she is R handed. States the low back pain is bothersome when leaning over to brush teeth, make bed, do dishes. Pain is on the R posterolateral side and only on the L when doing prolonged activities as previously mentioned. Any leaning over for 3-5' or more causes sharp stabbing pain, usually on the R. Today sharp pain in L posterolateral LB with sit to stand Prior Treatments and Tests Chiropractor treatments and acupuncture for past 4 yrs, with relief attending 2-3x/ week. Was told to do dishes standing with R foot up on stool. She hasn't because of instability . Future Testing and Treatments Planned No plans at this time. Covid restrictions in place at this time. Developmental History Developmental History Inguinal hernia repair 2 yrs ago. Treatment Goals Patient/Caregiver Goals Pt goals: 1) [place] teeth without back pain. 2) Wash dishes without back pain. 3) Transfer (sit to stand) without back pain. 4) Make her bed without back pain. 5) HEP for strengthening of R shoulder. Prior Functional Status Baseline Function- ADL's Independent Baseline Function- Mobility Independent Baseline Function- Gait Ambs without an assistive device. Baseline Function- Other Back pain her entire adult life due to scoliosis. Current Functional Impairments (Reported) Functional Limitations- ADL's LBP limits: making beds, brushing teeth, washing dishes , sometimes with sit to stand. R shoulder: hindered with moving of sliding window. Functional Limitations- Mobility/Gait Uses a shopping cart for stability with gait. 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 Can reach 2nd cupboard, needs stool for highest shelf (normal). PT-OP-E Functional Tests Start: 12/22/19 09:52 Freq: Status: Active Protocol: Document 01/02/20 15:05 LRN (Rec: 01/02/20 16:12 LRN [id number]) Functional Tests Apley's Scratch Test Action 1- Left Mid Spine Action 1- Right Mid Spine Action 2- Left T3 Action 2- Right T3 Action 3- Left T5 Action 3- Right T7 PT-OP-G Mobility & Gait Start: 12/22/19 09:52 Freq: Status: Active Protocol: Document 12/22/19 09:52 LRN (Rec: 12/23/19 18:30 LRN [id number]) OP Mobility Evaluation Bed Mobility Supine to and from Sit Independent with poor form: quick lying down in a partial sit up position. Transfers Sit to Stand Independent with sharp pain complain on L posterolateral low back region. OP Gait Assessment Gait Gait Assistance Required: Independent,Standby Assistance Distance (Feet) 75 Able to Maintain Weight Bearing Status Yes During Gait Assistive Devices Assistive Device None Gait Deviations General Gait Pattern Decreased Feet Clearance, Lateral Trunk Lean Factors Limiting Gait Function Factors Limiting Gait Function Abnormal Tonal Influences, Decreased Strength,Poor Safety Awareness Comments Gait Comments Pt has R foot drop, and although aware of need to clear foot from the ground, is not able to 10% of the time when walking on linoleum. She does not appear to have a problem on carpeting. PT-OP-H Neuro Start: 12/22/19 09:52 Freq: Status: Active Protocol: Document 12/22/19 09:52 LRN (Rec: 12/23/19 18:30 LRN [id number]) Sensation Evaluation Gross Sensation Gross Sensation WNL PT-OP-J Posture/Palpation/Skin Start: 12/23/19 18:52 Freq: Status: Active Protocol: Document 12/22/19 09:52 LRN (Rec: 12/23/19 18:55 LRN [id number]) Posture Evaluation Position Standing Evaluation View Posterior T-Spine Posture Flexible Scoliosis on (R) L-Spine Posture Fixed Scoliosis on (L) Comments Posture Comments Pt stood with feet together, R hip flexed 4 deg's, L hip extended 4 deg's. L shoulder/scapula is low & R Iliac Crest is low. Atrophy is present in R Quadratus Lumborum. Palpation Assessment Location R QL Palpation Location R QL Palpation Details Atrophy PT-OP-K Range of Motion Start: 12/22/19 09:52 Freq: Status: Active Protocol: Document 01/02/20 15:05 LRN (Rec: 01/02/20 16:12 LRN [id number]) Shoulder Goniometric Range of Motion Shoulder Right Active Testing Position Sitting Flexion 150 Internal Rotation Behind Back (text) T7 Left Active Testing Position Sitting Flexion 150 Internal Rotation Behind Back (text) T5 PT-OP-M Strength Start: 12/22/19 09:52 Freq: Status: Active Protocol: Document 01/02/20 15:05 LRN (Rec: 01/02/20 16:12 LRN [id number]) Hip Strength Hip Manual Muscle Testing Left Flexion (L2) 4+ Good+ Abduction 5 Normal Adduction 3 Fair Comments Held Ext testing due to back pain. Right Flexion (L2) 2 Poor Abduction 5 Normal Adduction 2- Poor- Comments Held Ext testing due to back pain. PT-OP-Q Treatments Start: 12/22/19 09:52 Freq: Status: Active Protocol: Document 01/02/20 15:05 LRN (Rec: 01/02/20 16:12 LRN [id number]) Therapeutic Exercises Supine Exercises Trunk rot Supine Exercise Name Active LTR, painfree range Side bilateral Reps/Minutes 5 hold x 10 Comments Had to determine limit of ROM Heel slide Supine Exercise Name Heel slide Side right Reps/Minutes 5x 2 Comments Extra time taken to teach proper movement, pt 70% correct, review x 4 SLR Supine Exercise Name SLR & Reverse SLR Reps/Minutes 5x R, 10x L Comments Extra time taken to train pt on proper form, review x 4 Bridging Supine Exercise Name Bridging Side bilateral Reps/Minutes 15 x Comments Review x 2 Sidelying Exercises L hip AB Sidelying Exercise Name L hip AB with body position of lying btn 2 sheets of glass. Reps/Minutes 10x Low back stretch to R Paraspinals Sidelying Exercise Name R side passive stretch & Sidelie L with pillow under L2 -L4. Reps/Minutes 4' Comments Positional stretch Self-Care/Home Management Treatment Education Patient Education Home Exercise Program Activities Self-Care/Home Management Activities Issued and reviewed another time HEP: Bridging, Heel slide, reverse SLR. PT-OP-T Assessment and Plan Start: 12/22/19 09:52 Freq: Status: Active Protocol: Document 01/02/20 15:05 LRN (Rec: 01/02/20 16:12 LRN [id number]) Physical Therapy Assessment Goals Three Impairment LB weakness causing LBP and posterolateral back pain of 5/ 10 (R>L) Short Term Goal (STG) Pt will be able to perform a quick timed activity (less than 3') of brushing her teeth without low back pain. STG Duration 01/26/20 Marketing Producer Goal (LTG) Patient will be able to wash her dishes with LBP no greater than of 1/10. LTG Duration 02/21/20 Two Impairment Decreased Trunk mobility resulting in LBP Short Term Goal (STG) Pt will be able to transfer sit to stand without onset of sharp back pain. STG Duration 01/26/20 (01/02/20: GOAL MET) Marketing Producer Goal (LTG) Pt will be able to make her bed with pain no greater than 1/10, with positional rest breaks during the activity. (Initial trunk AROM: Flex 25 deg's with 18 deg's hip flex and starting at 10 deg's, ext 5 deg's with 5 deg's hip ext, rot 5 deg's left, 10 deg's right; SB 5 deg's bilaterally) LTG Duration 02/21/20 One Impairment Pt lacks an appropriate self care HEP for R shoulder & low back. Short Term Goal (STG) Pt will be independent in a self care HEP of R shoulder strengthening exercises. (12/29/19: Progressing, needs scapular & deltoid strengthening) STG Duration 01/05/20 (01/02/20: GOAL MET) Marketing Producer Goal (LTG) Pt will be independent in a self care HEP to manage her low back pain. LTG Duration 02/21/20 (01/02/20: Progressing) Progress Towards Goals Progress Towards Goals Progressing Toward Goals Progress Comments GOAL#1 STG MET. Pt is on a shoulder HEP. GOAL #2 STG MET. Pt is able to transfer sit to stand without back pain. Assessment Summary Assessment Pt R shoulder appears to have returned to functional ability with STG #1 MET. STG #2 MET. She has no pain with shoulder AROM and flex mobility improved bilaterally from 130 to 150 deg's. Pt back is limited in strengthening due to scoliosis but was able to perform all low level core exercises although limited by hip moibility (SLR, heel slides) due to inguinal hernia repair history. Physical Therapy Plan Frequency and Duration Frequency of Treatment 2x/Week Duration of Treatment 8 weeks Plan of Care Start Date 12/22/19 Plan of Care End Date 02/21/20 Next Visit Focus/Plan Next Note Type Treatment Note Next Visit Plan Review last issued HEP. Modalities at end only if needed due to HX: leg/face CA, RTHA, Latex Allergy. ORION HEP: Initiate low level core/ hip ROM & strengthening. Check Hip strength (ext) and general hip mobility. Progress Core/hip strengthening & ROM exercises as needed. Assess gait or balance as needed if effecting low back and pain onset. Correct standing posture per pt education and training. Strengthen back for functional activities.
--- NOTE | 2020-01-09 12:18 | PT.OTN ---
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 Current Complaints R LBP & R shoulder pain History of Current Condition States she went to see Dr. Carrasco for her back and R shoulder pain. Currently she feels her R shoulder is fine, except when she sleeps too long on her shoulder and had pain when trying to open a sliding glass window. Minimal bother of R shoulder only because she is R handed. States the low back pain is bothersome when leaning over to brush teeth, make bed, do dishes. Pain is on the R posterolateral side and only on the L when doing prolonged activities as previously mentioned. Any leaning over for 3-5' or more causes sharp stabbing pain, usually on the R. Today sharp pain in L posterolateral LB with sit to stand Prior Treatments and Tests Chiropractor treatments and acupuncture for past 4 yrs, with relief attending 2-3x/ week. Was told to do dishes standing with R foot up on stool. She hasn't because of instability . Future Testing and Treatments Planned No plans at this time. Covid restrictions in place at this time. Developmental History Developmental History Inguinal hernia repair 2 yrs ago. Treatment Goals Patient/Caregiver Goals Pt goals: 1) [place] teeth without back pain. 2) Wash dishes without back pain. 3) Transfer (sit to stand) without back pain. 4) Make her bed without back pain. 5) HEP for strengthening of R shoulder. Prior Functional Status Baseline Function- ADL's Independent Baseline Function- Mobility Independent Baseline Function- Gait Ambs without an assistive device. Baseline Function- Other Back pain her entire adult life due to scoliosis. Current Functional Impairments (Reported) Functional Limitations- ADL's LBP limits: making beds, brushing teeth, washing dishes , sometimes with sit to stand. R shoulder: hindered with moving of sliding window. Functional Limitations- Mobility/Gait Uses a shopping cart for stability with gait. 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 States buttock used to hurt the worst getting into bed, but doesn't hurt as much nothing like it did. PT-OP-E Functional Tests Start: 12/22/19 09:52 Freq: Status: Active Protocol: Document 01/02/20 15:05 LRN (Rec: 01/02/20 16:12 LRN [id number]) Functional Tests Apley's Scratch Test Action 1- Left Mid Spine Action 1- Right Mid Spine Action 2- Left T3 Action 2- Right T3 Action 3- Left T5 Action 3- Right T7 PT-OP-G Mobility & Gait Start: 12/22/19 09:52 Freq: Status: Active Protocol: Document 12/22/19 09:52 LRN (Rec: 12/23/19 18:30 LRN [id number]) OP Mobility Evaluation Bed Mobility Supine to and from Sit Independent with poor form: quick lying down in a partial sit up position. Transfers Sit to Stand Independent with sharp pain complain on L posterolateral low back region. OP Gait Assessment Gait Gait Assistance Required: Independent,Standby Assistance Distance (Feet) 75 Able to Maintain Weight Bearing Status Yes During Gait Assistive Devices Assistive Device None Gait Deviations General Gait Pattern Decreased Feet Clearance, Lateral Trunk Lean Factors Limiting Gait Function Factors Limiting Gait Function Abnormal Tonal Influences, Decreased Strength,Poor Safety Awareness Comments Gait Comments Pt has R foot drop, and although aware of need to clear foot from the ground, is not able to 10% of the time when walking on linoleum. She does not appear to have a problem on carpeting. PT-OP-H Neuro Start: 12/22/19 09:52 Freq: Status: Active Protocol: Document 12/22/19 09:52 LRN (Rec: 12/23/19 18:30 LRN [id number]) Sensation Evaluation Gross Sensation Gross Sensation WNL PT-OP-J Posture/Palpation/Skin Start: 12/23/19 18:52 Freq: Status: Active Protocol: Document 12/22/19 09:52 LRN (Rec: 12/23/19 18:55 LRN [id number]) Posture Evaluation Position Standing Evaluation View Posterior T-Spine Posture Flexible Scoliosis on (R) L-Spine Posture Fixed Scoliosis on (L) Comments Posture Comments Pt stood with feet together, R hip flexed 4 deg's, L hip extended 4 deg's. L shoulder/scapula is low & R Iliac Crest is low. Atrophy is present in R Quadratus Lumborum. Palpation Assessment Location R QL Palpation Location R QL Palpation Details Atrophy PT-OP-K Range of Motion Start: 12/22/19 09:52 Freq: Status: Active Protocol: Document 01/02/20 15:05 LRN (Rec: 01/02/20 16:12 LRN [id number]) Shoulder Goniometric Range of Motion Shoulder Right Active Testing Position Sitting Flexion 150 Internal Rotation Behind Back (text) T7 Left Active Testing Position Sitting Flexion 150 Internal Rotation Behind Back (text) T5 PT-OP-M Strength Start: 12/22/19 09:52 Freq: Status: Active Protocol: Document 01/02/20 15:05 LRN (Rec: 01/02/20 16:12 LRN [id number]) Hip Strength Hip Manual Muscle Testing Left Flexion (L2) 4+ Good+ Abduction 5 Normal Adduction 3 Fair Comments Held Ext testing due to back pain. Right Flexion (L2) 2 Poor Abduction 5 Normal Adduction 2- Poor- Comments Held Ext testing due to back pain. PT-OP-Q Treatments Start: 12/22/19 09:52 Freq: Status: Active Protocol: Document 01/09/20 11:21 LRN (Rec: 01/09/20 12:17 LRN [id number]) Therapeutic Exercises Supine Exercises Heel slide Supine Exercise Name Heel slide Side right Reps/Minutes 15x Comments Pt needed cuing and teaching as she did not do ex at home SLR Supine Exercise Name SLR & Reverse SLR Reps/Minutes 5x R, 8x L Comments Extra time taken to train pt on proper form. Identified pt not karl well. Bridging Supine Exercise Name Bridging w/assist on last 10 reps for max lift Side bilateral Reps/Minutes 15 x Comments Progressed pt towards higher lifting. Sitting Exercises Marching Sitting Exercise Name Alternate march Side bilateral LAQ Sitting Exercise Name LAQ single leg lifts Side bilateral Reps/Minutes 5 Hold, 15 x Standing Exercises Hip Ext Standing Exercise Name Alternating Standing hip ext Side bilateral Reps/Minutes 4' Comments Training for proper postioning and max lift position. Self-Care/Home Management Treatment Education Patient Education Home Exercise Program Activities Self-Care/Home Management Activities Issued & reviewed HEP: Sitting LAQ and marching. PT-OP-T Assessment and Plan Start: 12/22/19 09:52 Freq: Status: Active Protocol: Document 01/09/20 11:21 LRN (Rec: 01/09/20 12:17 LRN [id number]) Physical Therapy Assessment Goals Three Impairment LB weakness causing LBP and posterolateral back pain of 5/ 10 (R>L) Short Term Goal (STG) Pt will be able to perform a quick timed activity (less than 3') of brushing her teeth without low back pain. STG Duration 01/26/20 Care Home Goal (LTG) Patient will be able to wash her dishes with LBP no greater than of 1/10. LTG Duration 02/21/20 Two Impairment Decreased Trunk mobility resulting in LBP Short Term Goal (STG) Pt will be able to transfer sit to stand without onset of sharp back pain. STG Duration 01/26/20 (01/02/20: GOAL MET) Care Home Goal (LTG) Pt will be able to make her bed with pain no greater than 1/10, with positional rest breaks during the activity. (Initial trunk AROM: Flex 25 deg's with 18 deg's hip flex and starting at 10 deg's, ext 5 deg's with 5 deg's hip ext, rot 5 deg's left, 10 deg's right; SB 5 deg's bilaterally) LTG Duration 02/21/20 One Impairment Pt lacks an appropriate self care HEP for R shoulder & low back. Short Term Goal (STG) Pt will be independent in a self care HEP of R shoulder strengthening exercises. 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 LTG Duration 02/21/20 (01/02/20: Progressing) Progress Towards Goals Progress Towards Goals Progressing Toward Goals Progress Comments GOAL #2 LTG progressing. Issued knee & hip ext ex's w/ instructions for maintaining TA contraction. Increased # of reps for bridging and height of lift. Assessment Summary Assessment Pt had symptoms of R Quad weakness with bridging and leg lifts. SLR limited due to inguinal hernia pain; therefore changed to sitting marching and LAQ. Physical Therapy Plan Frequency and Duration Frequency of Treatment 2x/Week Duration of Treatment 8 weeks Plan of Care Start Date 12/22/19 Plan of Care End Date 02/21/20 Next Visit Focus/Plan Next Note Type Treatment Note Next Visit Plan ORION Review last issued HEP ( sitting knee ext/september, LTR). Modalities at end only if needed due to HX: leg/face CA, RTHA, Latex Allergy. HEP: Progress strengthening & low level hip ROM & strengthening. Check Hip strength (ext) and general hip mobility. Assess gait or balance as needed if effecting low back and pain onset. Correct standing posture per pt education and training. Strengthen back for functional activities.
--- NOTE | 2020-01-09 12:19 | PT.OTN ---
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 Current Complaints R LBP & R shoulder pain History of Current Condition States she went to see Dr. Carrasco for her back and R shoulder pain. Currently she feels her R shoulder is fine, except when she sleeps too long on her shoulder and had pain when trying to open a sliding glass window. Minimal bother of R shoulder only because she is R handed. States the low back pain is bothersome when leaning over to brush teeth, make bed, do dishes. Pain is on the R posterolateral side and only on the L when doing prolonged activities as previously mentioned. Any leaning over for 3-5' or more causes sharp stabbing pain, usually on the R. Today sharp pain in L posterolateral LB with sit to stand Prior Treatments and Tests Chiropractor treatments and acupuncture for past 4 yrs, with relief attending 2-3x/ week. Was told to do dishes standing with R foot up on stool. She hasn't because of instability . Future Testing and Treatments Planned No plans at this time. Covid restrictions in place at this time. Developmental History Developmental History Inguinal hernia repair 2 yrs ago. Treatment Goals Patient/Caregiver Goals Pt goals: 1) [place] teeth without back pain. 2) Wash dishes without back pain. 3) Transfer (sit to stand) without back pain. 4) Make her bed without back pain. 5) HEP for strengthening of R shoulder. Prior Functional Status Baseline Function- ADL's Independent Baseline Function- Mobility Independent Baseline Function- Gait Ambs without an assistive device. Baseline Function- Other Back pain her entire adult life due to scoliosis. Current Functional Impairments (Reported) Functional Limitations- ADL's LBP limits: making beds, brushing teeth, washing dishes , sometimes with sit to stand. R shoulder: hindered with moving of sliding window. Functional Limitations- Mobility/Gait Uses a shopping cart for stability with gait. 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 States buttock used to hurt the worst getting into bed, but doesn't hurt as much nothing like it did. PT-OP-E Functional Tests Start: 12/22/19 09:52 Freq: Status: Active Protocol: Document 01/02/20 15:05 LRN (Rec: 01/02/20 16:12 LRN [id number]) Functional Tests Apley's Scratch Test Action 1- Left Mid Spine Action 1- Right Mid Spine Action 2- Left T3 Action 2- Right T3 Action 3- Left T5 Action 3- Right T7 PT-OP-G Mobility & Gait Start: 12/22/19 09:52 Freq: Status: Active Protocol: Document 12/22/19 09:52 LRN (Rec: 12/23/19 18:30 LRN [id number]) OP Mobility Evaluation Bed Mobility Supine to and from Sit Independent with poor form: quick lying down in a partial sit up position. Transfers Sit to Stand Independent with sharp pain complain on L posterolateral low back region. OP Gait Assessment Gait Gait Assistance Required: Independent,Standby Assistance Distance (Feet) 75 Able to Maintain Weight Bearing Status Yes During Gait Assistive Devices Assistive Device None Gait Deviations General Gait Pattern Decreased Feet Clearance, Lateral Trunk Lean Factors Limiting Gait Function Factors Limiting Gait Function Abnormal Tonal Influences, Decreased Strength,Poor Safety Awareness Comments Gait Comments Pt has R foot drop, and although aware of need to clear foot from the ground, is not able to 10% of the time when walking on linoleum. She does not appear to have a problem on carpeting. PT-OP-H Neuro Start: 12/22/19 09:52 Freq: Status: Active Protocol: Document 12/22/19 09:52 LRN (Rec: 12/23/19 18:30 LRN [id number]) Sensation Evaluation Gross Sensation Gross Sensation WNL PT-OP-J Posture/Palpation/Skin Start: 12/23/19 18:52 Freq: Status: Active Protocol: Document 12/22/19 09:52 LRN (Rec: 12/23/19 18:55 LRN [id number]) Posture Evaluation Position Standing Evaluation View Posterior T-Spine Posture Flexible Scoliosis on (R) L-Spine Posture Fixed Scoliosis on (L) Comments Posture Comments Pt stood with feet together, R hip flexed 4 deg's, L hip extended 4 deg's. L shoulder/scapula is low & R Iliac Crest is low. Atrophy is present in R Quadratus Lumborum. Palpation Assessment Location R QL Palpation Location R QL Palpation Details Atrophy PT-OP-K Range of Motion Start: 12/22/19 09:52 Freq: Status: Active Protocol: Document 01/02/20 15:05 LRN (Rec: 01/02/20 16:12 LRN [id number]) Shoulder Goniometric Range of Motion Shoulder Right Active Testing Position Sitting Flexion 150 Internal Rotation Behind Back (text) T7 Left Active Testing Position Sitting Flexion 150 Internal Rotation Behind Back (text) T5 PT-OP-M Strength Start: 12/22/19 09:52 Freq: Status: Active Protocol: Document 01/02/20 15:05 LRN (Rec: 01/02/20 16:12 LRN [id number]) Hip Strength Hip Manual Muscle Testing Left Flexion (L2) 4+ Good+ Abduction 5 Normal Adduction 3 Fair Comments Held Ext testing due to back pain. Right Flexion (L2) 2 Poor Abduction 5 Normal Adduction 2- Poor- Comments Held Ext testing due to back pain. PT-OP-Q Treatments Start: 12/22/19 09:52 Freq: Status: Active Protocol: Document 01/09/20 11:21 LRN (Rec: 01/09/20 12:17 LRN [id number]) Therapeutic Exercises Supine Exercises Heel slide Supine Exercise Name Heel slide Side right Reps/Minutes 15x Comments Pt needed cuing and teaching as she did not do ex at home SLR Supine Exercise Name SLR & Reverse SLR Reps/Minutes 5x R, 8x L Comments Extra time taken to train pt on proper form. Identified pt not karl well. Bridging Supine Exercise Name Bridging w/assist on last 10 reps for max lift Side bilateral Reps/Minutes 15 x Comments Progressed pt towards higher lifting. Sitting Exercises Marching Sitting Exercise Name Alternate march Side bilateral LAQ Sitting Exercise Name LAQ single leg lifts Side bilateral Reps/Minutes 5 Hold, 15 x Standing Exercises Hip Ext Standing Exercise Name Alternating Standing hip ext Side bilateral Reps/Minutes 4' Comments Training for proper postioning and max lift position. Self-Care/Home Management Treatment Education Patient Education Home Exercise Program Activities Self-Care/Home Management Activities Issued & reviewed HEP: Sitting LAQ and marching. PT-OP-T Assessment and Plan Start: 12/22/19 09:52 Freq: Status: Active Protocol: Document 01/09/20 11:21 LRN (Rec: 01/09/20 12:17 LRN [id number]) Physical Therapy Assessment Goals Three Impairment LB weakness causing LBP and posterolateral back pain of 5/ 10 (R>L) Short Term Goal (STG) Pt will be able to perform a quick timed activity (less than 3') of brushing her teeth without low back pain. STG Duration 01/26/20 Mcc Goal (LTG) Patient will be able to wash her dishes with LBP no greater than of 1/10. LTG Duration 02/21/20 Two Impairment Decreased Trunk mobility resulting in LBP Short Term Goal (STG) Pt will be able to transfer sit to stand without onset of sharp back pain. STG Duration 01/26/20 (01/02/20: GOAL MET) Mcc Goal (LTG) Pt will be able to make her bed with pain no greater than 1/10, with positional rest breaks during the activity. (Initial trunk AROM: Flex 25 deg's with 18 deg's hip flex and starting at 10 deg's, ext 5 deg's with 5 deg's hip ext, rot 5 deg's left, 10 deg's right; SB 5 deg's bilaterally) LTG Duration 02/21/20 One Impairment Pt lacks an appropriate self care HEP for R shoulder & low back. Short Term Goal (STG) Pt will be independent in a self care HEP of R shoulder strengthening exercises. (12/29/19: Progressing, needs scapular & deltoid strengthening) STG Duration 01/05/20 (01/02/20: GOAL MET) Duplicate Maker Goal (LTG) Pt will be independent in a self care HEP to manage her low back pain. LTG Duration 02/21/20 (01/02/20: Progressing) Progress Towards Goals Progress Towards Goals Progressing Toward Goals Progress Comments GOAL #2 LTG progressing. Issued knee & hip ext ex's w/ instructions for maintaining TA contraction. Increased # of reps for bridging and height of lift. Assessment Summary Assessment Pt had symptoms of R Quad weakness with bridging and leg lifts. SLR limited due to inguinal hernia pain; therefore changed to sitting marching and LAQ. Physical Therapy Plan Frequency and Duration Frequency of Treatment 2x/Week Duration of Treatment 8 weeks Plan of Care Start Date 12/22/19 Plan of Care End Date 02/21/20 Next Visit Focus/Plan Next Note Type Treatment Note Next Visit Plan ORION Review last issued HEP ( sitting knee ext/september, LTR). Modalities at end only if needed due to HX: leg/face CA, RTHA, Latex Allergy. HEP: Progress strengthening & low level hip ROM & strengthening. Check Hip strength (ext) and general hip mobility. Assess gait or balance as needed if effecting low back and pain onset. Correct standing posture per pt education and training. Strengthen back for functional activities.
--- NOTE | 2020-01-16 12:25 | PT.OTN ---
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 Current Complaints R LBP & R shoulder pain History of Current Condition States she went to see Dr. Carrasco for her back and R shoulder pain. Currently she feels her R shoulder is fine, except when she sleeps too long on her shoulder and had pain when trying to open a sliding glass window. Minimal bother of R shoulder only because she is R handed. States the low back pain is bothersome when leaning over to brush teeth, make bed, do dishes. Pain is on the R posterolateral side and only on the L when doing prolonged activities as previously mentioned. Any leaning over for 3-5' or more causes sharp stabbing pain, usually on the R. Today sharp pain in L posterolateral LB with sit to stand Prior Treatments and Tests Chiropractor treatments and acupuncture for past 4 yrs, with relief attending 2-3x/ week. Was told to do dishes standing with R foot up on stool. She hasn't because of instability . Future Testing and Treatments Planned No plans at this time. Covid restrictions in place at this time. Developmental History Developmental History Inguinal hernia repair 2 yrs ago. Treatment Goals Patient/Caregiver Goals Pt goals: 1) [place] teeth without back pain. 2) Wash dishes without back pain. 3) Transfer (sit to stand) without back pain. 4) Make her bed without back pain. 5) HEP for strengthening of R shoulder. Prior Functional Status Baseline Function- ADL's Independent Baseline Function- Mobility Independent Baseline Function- Gait Ambs without an assistive device. Baseline Function- Other Back pain her entire adult life due to scoliosis. Current Functional Impairments (Reported) Functional Limitations- ADL's LBP limits: making beds, brushing teeth, washing dishes , sometimes with sit to stand. R shoulder: hindered with moving of sliding window. Functional Limitations- Mobility/Gait Uses a shopping cart for stability with gait. 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 States she slept wrong so her neck is sore. States she has to modify her stance (bends her knees) and can avoid back pain with brushing her teeth and washing dishes. She is able to make her bed if she sits to pull the sheet on one side. She gets tired during the process. PT-OP-E Functional Tests Start: 12/22/19 09:52 Freq: Status: Active Protocol: Document 01/02/20 15:05 LRN (Rec: 01/02/20 16:12 LRN [id number]) Functional Tests Apley's Scratch Test Action 1- Left Mid Spine Action 1- Right Mid Spine Action 2- Left T3 Action 2- Right T3 Action 3- Left T5 Action 3- Right T7 PT-OP-G Mobility & Gait Start: 12/22/19 09:52 Freq: Status: Active Protocol: Document 12/22/19 09:52 LRN (Rec: 12/23/19 18:30 LRN [id number]) OP Mobility Evaluation Bed Mobility Supine to and from Sit Independent with poor form: quick lying down in a partial sit up position. Transfers Sit to Stand Independent with sharp pain complain on L posterolateral low back region. OP Gait Assessment Gait Gait Assistance Required: Independent,Standby Assistance Distance (Feet) 75 Able to Maintain Weight Bearing Status Yes During Gait Assistive Devices Assistive Device None Gait Deviations General Gait Pattern Decreased Feet Clearance, Lateral Trunk Lean Factors Limiting Gait Function Factors Limiting Gait Function Abnormal Tonal Influences, Decreased Strength,Poor Safety Awareness Comments Gait Comments Pt has R foot drop, and although aware of need to clear foot from the ground, is not able to 10% of the time when walking on linoleum. She does not appear to have a problem on carpeting. PT-OP-H Neuro Start: 12/22/19 09:52 Freq: Status: Active Protocol: Document 12/22/19 09:52 LRN (Rec: 12/23/19 18:30 LRN [id number]) Sensation Evaluation Gross Sensation Gross Sensation WNL PT-OP-J Posture/Palpation/Skin Start: 12/23/19 18:52 Freq: Status: Active Protocol: Document 12/22/19 09:52 LRN (Rec: 12/23/19 18:55 LRN [id number]) Posture Evaluation Position Standing Evaluation View Posterior T-Spine Posture Flexible Scoliosis on (R) L-Spine Posture Fixed Scoliosis on (L) Comments Posture Comments Pt stood with feet together, R hip flexed 4 deg's, L hip extended 4 deg's. L shoulder/scapula is low & R Iliac Crest is low. Atrophy is present in R Quadratus Lumborum. Palpation Assessment Location R QL Palpation Location R QL Palpation Details Atrophy PT-OP-K Range of Motion Start: 12/22/19 09:52 Freq: Status: Active Protocol: Document 01/16/20 11:20 LRN (Rec: 01/16/20 12:24 LRN [id number]) Hip Goniometric Range of Motion Hip Left Internal Rotation 20 External Rotation 20 Right Passive Internal Rotation 35 External Rotation 30 Hip ROM Limitations Comments R Anterior CHERI Eugene Hernia repair. PT-OP-M Strength Start: 12/22/19 09:52 Freq: Status: Active Protocol: Document 01/02/20 15:05 LRN (Rec: 01/02/20 16:12 LRN [id number]) Hip Strength Hip Manual Muscle Testing Left Flexion (L2) 4+ Good+ Abduction 5 Normal Adduction 3 Fair Comments Held Ext testing due to back pain. Right Flexion (L2) 2 Poor Abduction 5 Normal Adduction 2- Poor- Comments Held Ext testing due to back pain. PT-OP-Q Treatments Start: 12/22/19 09:52 Freq: Status: Active Protocol: Document 01/16/20 11:20 LRN (Rec: 01/16/20 12:24 LRN [id number]) Therapeutic Exercises Supine Exercises Hip ER stretch Supine Exercise Name LE Butterfly (ER) stretch, f/b active ER. Side bilateral Reps/Minutes 4' Bridging Supine Exercise Name Bridging for max lift Side bilateral Reps/Minutes 10 x 2 Sitting Exercises Marching Sitting Exercise Name Alternate march Side bilateral Reps/Minutes 15x LAQ Sitting Exercise Name LAQ single leg lifts Side bilateral Reps/Minutes 10 Hold, 10\5 x Shoulder press Sitting Exercise Name Shoulder Press ups Side bilateral Resistance 2# Reps/Minutes 10x Standing Exercises UE Row Standing Exercise Name ROW L side Side left Resistance Lev 1 Hip Ext Standing Exercise Name Leaning over plinth, Alternating Standing hip ext Side bilateral Reps/Minutes 4' Self-Care/Home Management Treatment Education Patient Education Home Exercise Program Activities Self-Care/Home Management Activities Issued & reviewed HEP: Hip ext strengthening starting in a FB posture (leaniing over table) and hip ER stretch. Issued white strap for pt to hold her home TB in doorway with. PT-OP-T Assessment and Plan Start: 12/22/19 09:52 Freq: Status: Active Protocol: Document 01/16/20 11:20 LRN (Rec: 01/16/20 12:24 LRN [id number]) Physical Therapy Assessment Goals Three Impairment LB weakness causing LBP and posterolateral back pain of 5/ 10 (R>L) Short Term Goal (STG) Pt will be able to perform a quick timed activity (less than 3') of brushing her teeth without low back pain. (01/16/20: No pain if bend knees during activity). STG Duration 01/26/20 (01/16/20: Modified posture to meet goal) Visual Aid Expert Goal (LTG) Patient will be able to wash her dishes with LBP no greater than of 1/10. (01/16/20: No pain if bend knees during activity). LTG Duration 02/21/20 (01/16/20: Modified posture to meet goal) Two Impairment Decreased Trunk mobility resulting in LBP Short Term Goal (STG) Pt will be able to transfer sit to stand without onset of sharp back pain. STG Duration 01/26/20 (01/02/20: GOAL MET) Visual Aid Expert Goal (LTG) Pt will be able to make her bed with pain no greater than 1/10, with positional rest breaks during the activity. (01/16/20: Pt can sit to make bed without pain, only fatigue ). (Initial trunk AROM: Flex 25 deg's with 18 deg's hip flex and starting at 10 deg's, ext 5 deg's with 5 deg's hip ext, rot 5 deg's left, 10 deg's right; SB 5 deg's bilaterally) LTG Duration 02/21/20 (01/16/20: Progressing) One Impairment Pt lacks an appropriate self care HEP for R shoulder & low back. Short Term Goal (STG) Pt will be independent in a self care HEP of R shoulder strengthening exercises. (12/29/19: Progressing, needs scapular & deltoid strengthening) STG Duration 01/05/20 (01/02/20: GOAL MET) Visual Aid Expert Goal (LTG) Pt will be independent in a self care HEP to manage her low back pain. LTG Duration 02/21/20 (01/16/20: Progressing) Progress Towards Goals Progress Towards Goals Progressing Toward Goals Progress Comments GOAL #3 STG: PARTIALLY MET ( modified posturing). LTG: PARTIALLY MET (modified posturing). GOAL #2 LTG: PARTIALLY MET ( no pain if done in sitting). GOAL #1 HEP PROGRESSING. Assessment Summary Assessment Pt back strength is improving. She is extremely limited in hip (rotation) mobility and her LB fatigues quickly with exercise. Pt is progressing with improved tolerance to functional activities with modified postures. Physical Therapy Plan Frequency and Duration Frequency of Treatment 2x/Week Duration of Treatment 8 weeks Plan of Care Start Date 12/22/19 Plan of Care End Date 02/21/20 Next Visit Focus/Plan Next Note Type Treatment Note Next Visit Plan Review last issued HEP ( sitting HIP ER stretch and hip ext strengthening lying across table). Modalities at end only if needed due to HX: leg/face CA, RTHA, Latex Allergy. Progress strengthening of back and legs (HEP as needed) for functional activities.. Check Hip strength (ext). Assess gait or balance as needed if effecting low back and pain onset. Correct standing posture per pt education and training.
--- NOTE | 2020-01-19 17:21 | PT.OTN ---
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 Current Complaints R LBP & R shoulder pain History of Current Condition States she went to see Dr. Carrasco for her back and R shoulder pain. Currently she feels her R shoulder is fine, except when she sleeps too long on her shoulder and had pain when trying to open a sliding glass window. Minimal bother of R shoulder only because she is R handed. States the low back pain is bothersome when leaning over to brush teeth, make bed, do dishes. Pain is on the R posterolateral side and only on the L when doing prolonged activities as previously mentioned. Any leaning over for 3-5' or more causes sharp stabbing pain, usually on the R. Today sharp pain in L posterolateral LB with sit to stand Prior Treatments and Tests Chiropractor treatments and acupuncture for past 4 yrs, with relief attending 2-3x/ week. Was told to do dishes standing with R foot up on stool. She hasn't because of instability . Future Testing and Treatments Planned No plans at this time. Covid restrictions in place at this time. Developmental History Developmental History Inguinal hernia repair 2 yrs ago. Treatment Goals Patient/Caregiver Goals Pt goals: 1) [place] teeth without back pain. 2) Wash dishes without back pain. 3) Transfer (sit to stand) without back pain. 4) Make her bed without back pain. 5) HEP for strengthening of R shoulder. Prior Functional Status Baseline Function- ADL's Independent Baseline Function- Mobility Independent Baseline Function- Gait Ambs without an assistive device. Baseline Function- Other Back pain her entire adult life due to scoliosis. Current Functional Impairments (Reported) Functional Limitations- ADL's LBP limits: making beds, brushing teeth, washing dishes , sometimes with sit to stand. R shoulder: hindered with moving of sliding window. Functional Limitations- Mobility/Gait Uses a shopping cart for stability with gait. 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 Patient Questionnaires Oswestry Low Back Index Oswestry Score 26 Oswestry Impairment 20 to 39% Impaired (Score 20- 39) PT-OP-E Functional Tests Start: 12/22/19 09:52 Freq: Status: Active Protocol: Document 01/02/20 15:05 LRN (Rec: 01/02/20 16:12 LRN [id number]) Functional Tests Apley's Scratch Test Action 1- Left Mid Spine Action 1- Right Mid Spine Action 2- Left T3 Action 2- Right T3 Action 3- Left T5 Action 3- Right T7 PT-OP-G Mobility & Gait Start: 12/22/19 09:52 Freq: Status: Active Protocol: Document 12/22/19 09:52 LRN (Rec: 12/23/19 18:30 LRN [id number]) OP Mobility Evaluation Bed Mobility Supine to and from Sit Independent with poor form: quick lying down in a partial sit up position. Transfers Sit to Stand Independent with sharp pain complain on L posterolateral low back region. OP Gait Assessment Gait Gait Assistance Required: Independent,Standby Assistance Distance (Feet) 75 Able to Maintain Weight Bearing Status Yes During Gait Assistive Devices Assistive Device None Gait Deviations General Gait Pattern Decreased Feet Clearance, Lateral Trunk Lean Factors Limiting Gait Function Factors Limiting Gait Function Abnormal Tonal Influences, Decreased Strength,Poor Safety Awareness Comments Gait Comments Pt has R foot drop, and although aware of need to clear foot from the ground, is not able to 10% of the time when walking on linoleum. She does not appear to have a problem on carpeting. PT-OP-H Neuro Start: 12/22/19 09:52 Freq: Status: Active Protocol: Document 12/22/19 09:52 LRN (Rec: 12/23/19 18:30 LRN [id number]) Sensation Evaluation Gross Sensation Gross Sensation WNL PT-OP-J Posture/Palpation/Skin Start: 12/23/19 18:52 Freq: Status: Active Protocol: Document 12/22/19 09:52 LRN (Rec: 12/23/19 18:55 LRN [id number]) Posture Evaluation Position Standing Evaluation View Posterior T-Spine Posture Flexible Scoliosis on (R) L-Spine Posture Fixed Scoliosis on (L) Comments Posture Comments Pt stood with feet together, R hip flexed 4 deg's, L hip extended 4 deg's. L shoulder/scapula is low & R Iliac Crest is low. Atrophy is present in R Quadratus Lumborum. Palpation Assessment Location R QL Palpation Location R QL Palpation Details Atrophy PT-OP-K Range of Motion Start: 12/22/19 09:52 Freq: Status: Active Protocol: Document 01/16/20 11:20 LRN (Rec: 01/16/20 12:24 LRN [id number]) Hip Goniometric Range of Motion Hip Left Internal Rotation 20 External Rotation 20 Right Passive Internal Rotation 35 External Rotation 30 Hip ROM Limitations Comments R Anterior CHERI Eugene Hernia repair. PT-OP-M Strength Start: 12/22/19 09:52 Freq: Status: Active Protocol: Document 01/02/20 15:05 LRN (Rec: 01/02/20 16:12 LRN [id number]) Hip Strength Hip Manual Muscle Testing Left Flexion (L2) 4+ Good+ Abduction 5 Normal Adduction 3 Fair Comments Held Ext testing due to back pain. Right Flexion (L2) 2 Poor Abduction 5 Normal Adduction 2- Poor- Comments Held Ext testing due to back pain. PT-OP-Q Treatments Start: 12/22/19 09:52 Freq: Status: Active Protocol: Document 01/19/20 11:21 LRN (Rec: 01/19/20 12:46 LRN [id number]) Therapeutic Exercises Supine Exercises Heel slide Supine Exercise Name Heel slide Side bilateral Reps/Minutes 10x Comments Pt moves slowly and cautiously , removed shoes for greater ease of ex SLR Supine Exercise Name SLR & Reverse SLR Reps/Minutes 5x R, 5x L Comments Pt needed short rests between lifts due to groin discomfort Sitting Exercises Marching Sitting Exercise Name Alternate march Side bilateral Reps/Minutes 15x LAQ Sitting Exercise Name LAQ single leg lifts, and eugene leg lifts Side bilateral Resistance 0# single, 3# bilateral Reps/Minutes 10 Hold, 10 x each Shoulder press Sitting Exercise Name Shoulder Press ups Side bilateral Resistance 2# Reps/Minutes 10x Standing Exercises Hip Ext Standing Exercise Name Leaning over table with trunk support for hip ext Side bilateral Reps/Minutes 5' Comments Training for positioning to avoid back pain and full support of trunk Gait Training Gait Activity Heel strike Description Gait training for Heel strike and ankle DF on swing through Device Used None Level of Assistance Indep Surface Level/Firm Distance/Duration 25' x 6 Treatment Focus Ankle DF and clearance of toes on swing through. Self-Care/Home Management Treatment Education Patient Education Home Exercise Program Activities Self-Care/Home Management Activities Reviewed previously issued HEP for leaning over table. Made HEP for shoulder strengthening ex's, but deferred issuing due to pt having many questions regarding previously issued HEP. PT-OP-T Assessment and Plan Start: 12/22/19 09:52 Freq: Status: Active Protocol: Document 01/19/20 11:21 LRN (Rec: 01/19/20 12:46 LRN [id number]) Physical Therapy Assessment Goals Three Impairment LB weakness causing LBP and posterolateral back pain of 5/ 10 (R>L) Short Term Goal (STG) Pt will be able to perform a quick timed activity (less than 3') of brushing her teeth without low back pain. (01/16/20: No pain if bend knees during activity). STG Duration 01/26/20 (01/16/20: Modified posture to meet goal) Care Home Goal (LTG) Patient will be able to wash her dishes with LBP no greater than of 1/10. (01/16/20: No pain if bend knees during activity). LTG Duration 02/21/20 (01/16/20: Modified posture to meet goal) Two Impairment Decreased Trunk mobility resulting in LBP Short Term Goal (STG) Pt will be able to transfer sit to stand without onset of sharp back pain. STG Duration 01/26/20 (01/02/20: GOAL MET) Hot Metal Crane Operator Goal (LTG) Pt will be able to make her bed with pain no greater than 1/10, with positional rest breaks during the activity. (01/16/20: Pt can sit to make bed without pain, only fatigue ). (Initial trunk AROM: Flex 25 deg's with 18 deg's hip flex and starting at 10 deg's, ext 5 deg's with 5 deg's hip ext, rot 5 deg's left, 10 deg's right; SB 5 deg's bilaterally) LTG Duration 02/21/20 (01/16/20: Progressing) One Impairment Pt lacks an appropriate self care HEP for R shoulder & low back. Short Term Goal (STG) Pt will be independent in a self care HEP of R shoulder strengthening exercises. (12/29/19: Progressing, needs scapular & deltoid strengthening) STG Duration 01/05/20 (01/02/20: GOAL MET) Care Home Goal (LTG) Pt will be independent in a self care HEP to manage her low back pain. LTG Duration 02/21/20 (01/16/20: Progressing) Progress Towards Goals Progress Comments ORION = 26 (20%<40% impairment). Assessment Summary Assessment Pt feels her ability to perform her functional activities (brushing her teeth , washing dishes, making a bed ) is satisfactory and she feels safe ambulating with heel to walking. Her R shoulder and low back is feeling better but she needs a self care HEP of strengthening ex's. Pt will probably be ready for DC next week. Physical Therapy Plan Frequency and Duration Frequency of Treatment 2x/Week Duration of Treatment 8 weeks Plan of Care Start Date 12/22/19 Plan of Care End Date 02/21/20 Next Visit Focus/Plan Next Note Type Treatment Note Next Visit Plan Recheck UE QUICKDASH. Reviewed last issued HEP ( sitting HIP ER stretch), and glut strengthening during gait on toe off. Modalities at end only if needed due to HX: leg/face CA, RTHA, Latex Allergy. Progress onto HEP of strengthening for back and shoulders for functional activities. Check Hip strength (ext). Assess gait or balance effect on LBP onset. Correct standing posture per pt education and training. DC at end of week to HEP if pt is independent w/ex's.
--- NOTE | 2020-01-23 12:25 | PT.OTN ---
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 Current Complaints R LBP & R shoulder pain History of Current Condition States she went to see Dr. Carrasco for her back and R shoulder pain. Currently she feels her R shoulder is fine, except when she sleeps too long on her shoulder and had pain when trying to open a sliding glass window. Minimal bother of R shoulder only because she is R handed. States the low back pain is bothersome when leaning over to brush teeth, make bed, do dishes. Pain is on the R posterolateral side and only on the L when doing prolonged activities as previously mentioned. Any leaning over for 3-5' or more causes sharp stabbing pain, usually on the R. Today sharp pain in L posterolateral LB with sit to stand Prior Treatments and Tests Chiropractor treatments and acupuncture for past 4 yrs, with relief attending 2-3x/ week. Was told to do dishes standing with R foot up on stool. She hasn't because of instability . Future Testing and Treatments Planned No plans at this time. Covid restrictions in place at this time. Developmental History Developmental History Inguinal hernia repair 2 yrs ago. Treatment Goals Patient/Caregiver Goals Pt goals: 1) Partridge teeth without back pain. 2) Wash dishes without back pain. 3) Transfer (sit to stand) without back pain. 4) Make her bed without back pain. 5) HEP for strengthening of R shoulder. Prior Functional Status Baseline Function- ADL's Independent Baseline Function- Mobility Independent Baseline Function- Gait Ambs without an assistive device. Baseline Function- Other Back pain her entire adult life due to scoliosis. Current Functional Impairments (Reported) Functional Limitations- ADL's LBP limits: making beds, brushing teeth, washing dishes , sometimes with sit to stand. R shoulder: hindered with moving of sliding window. Functional Limitations- Mobility/Gait Uses a shopping cart for stability with gait. 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 Patient Questionnaires Quick Dash- Upper Extremity Quick Dash UE Score 20.45 Quick Dash UE Impairment 20 to 39% Impaired (Score 20- 39) PT-OP-E Functional Tests Start: 12/22/19 09:52 Freq: Status: Active Protocol: Document 01/02/20 15:05 LRN (Rec: 01/02/20 16:12 LRN [id number]) Functional Tests Apley's Scratch Test Action 1- Left Mid Spine Action 1- Right Mid Spine Action 2- Left T3 Action 2- Right T3 Action 3- Left T5 Action 3- Right T7 PT-OP-G Mobility & Gait Start: 12/22/19 09:52 Freq: Status: Active Protocol: Document 12/22/19 09:52 LRN (Rec: 12/23/19 18:30 LRN [id number]) OP Mobility Evaluation Bed Mobility Supine to and from Sit Independent with poor form: quick lying down in a partial sit up position. Transfers Sit to Stand Independent with sharp pain complain on L posterolateral low back region. OP Gait Assessment Gait Gait Assistance Required: Independent,Standby Assistance Distance (Feet) 75 Able to Maintain Weight Bearing Status Yes During Gait Assistive Devices Assistive Device None Gait Deviations General Gait Pattern Decreased Feet Clearance, Lateral Trunk Lean Factors Limiting Gait Function Factors Limiting Gait Function Abnormal Tonal Influences, Decreased Strength,Poor Safety Awareness Comments Gait Comments Pt has R foot drop, and although aware of need to clear foot from the ground, is not able to 10% of the time when walking on linoleum. She does not appear to have a problem on carpeting. PT-OP-H Neuro Start: 12/22/19 09:52 Freq: Status: Active Protocol: Document 12/22/19 09:52 LRN (Rec: 12/23/19 18:30 LRN [id number]) Sensation Evaluation Gross Sensation Gross Sensation WNL PT-OP-J Posture/Palpation/Skin Start: 12/23/19 18:52 Freq: Status: Active Protocol: Document 12/22/19 09:52 LRN (Rec: 12/23/19 18:55 LRN [id number]) Posture Evaluation Position Standing Evaluation View Posterior T-Spine Posture Flexible Scoliosis on (R) L-Spine Posture Fixed Scoliosis on (L) Comments Posture Comments Pt stood with feet together, R hip flexed 4 deg's, L hip extended 4 deg's. L shoulder/scapula is low & R Iliac Crest is low. Atrophy is present in R Quadratus Lumborum. Palpation Assessment Location R QL Palpation Location R QL Palpation Details Atrophy PT-OP-K Range of Motion Start: 12/22/19 09:52 Freq: Status: Active Protocol: Document 01/16/20 11:20 LRN (Rec: 01/16/20 12:24 LRN [id number]) Hip Goniometric Range of Motion Hip Left Internal Rotation 20 External Rotation 20 Right Passive Internal Rotation 35 External Rotation 30 Hip ROM Limitations Comments R Anterior CHERI [place] Hernia repair. PT-OP-M Strength Start: 12/22/19 09:52 Freq: Status: Active Protocol: Document 01/23/20 11:20 LRN (Rec: 01/23/20 12:24 LRN [id number]) Hip Strength Hip Manual Muscle Testing Left Extension (S1) 4 Good Right Extension (S1) 3 Fair PT-OP-Q Treatments Start: 12/22/19 09:52 Freq: Status: Active Protocol: Document 01/23/20 11:20 LRN (Rec: 01/23/20 12:24 LRN [id number]) Therapeutic Exercises Supine Exercises Trunk rot Supine Exercise Name Trunk rotation LTR Side bilateral Reps/Minutes 4' Comments ROM limited by knee roll L rotation. Sitting Exercises Shoulder press Sitting Exercise Name Shoulder Press ups Side bilateral Resistance 2# Reps/Minutes 15x Standing Exercises Arm circles Standing Exercise Name Arm circles Side bilateral Comments Training for engaging scapula and for proper arm position ( neutral) Hip AB Standing Exercise Name Hip AB Side bilateral Reps/Minutes 5 hold, 10x UE Row Standing Exercise Name L Side row, leaning over counter. Side left Resistance 2# Reps/Minutes 10x Hip Ext Standing Exercise Name Leaning over table and standing upright Side bilateral Reps/Minutes 8' Comments Held leaning over table Gait Training Gait Activity Toe off Description Gluteal squeeze on toe off position Device Used Stair railing Level of Assistance Much verbal cuing and some physical cuing Surface Level Distance/Duration 6' Treatment Focus Gluteal strengthening Self-Care/Home Management Treatment Education Patient Education Home Exercise Program Activities Self-Care/Home Management Activities Issued & reviewed HEP for Shoulder press, L sided row & arm circles. PT-OP-T Assessment and Plan Start: 12/22/19 09:52 Freq: Status: Active Protocol: Document 01/23/20 11:20 LRN (Rec: 01/23/20 12:24 LRN [id number]) Physical Therapy Assessment Goals Three Impairment LB weakness causing LBP and posterolateral back pain of 5/ 10 (R>L) Short Term Goal (STG) Pt will be able to perform a quick timed activity (less than 3') of brushing her teeth without low back pain. (01/16/20: No pain if bend knees during activity). STG Duration 01/26/20 (01/16/20: Modified posture to meet goal) Snf Goal (LTG) Patient will be able to wash her dishes with LBP no greater than of 1/10. (01/16/20: No pain if bend knees during activity). LTG Duration 02/21/20 (01/16/20: Modified posture to meet goal) Two Impairment Decreased Trunk mobility resulting in LBP Short Term Goal (STG) Pt will be able to transfer sit to stand without onset of sharp back pain. STG Duration 01/26/20 (01/02/20: GOAL MET) Folding Machine Operator Goal (LTG) Pt will be able to make her bed with pain no greater than 1/10, with positional rest breaks during the activity. (01/16/20: Pt can sit to make bed without pain, only fatigue ). (Initial trunk AROM: Flex 25 deg's with 18 deg's hip flex and starting at 10 deg's, ext 5 deg's with 5 deg's hip ext, rot 5 deg's left, 10 deg's right; SB 5 deg's bilaterally) LTG Duration 02/21/20 (01/16/20: Progressing) One Impairment Pt lacks an appropriate self care HEP for R shoulder & low back. Short Term Goal (STG) Pt will be independent in a self care HEP of R shoulder strengthening exercises. (12/29/19: Progressing, needs scapular & deltoid strengthening) STG Duration 01/05/20 (01/02/20: GOAL MET) Folding Machine Operator Goal (LTG) Pt will be independent in a self care HEP to manage her low back pain. LTG Duration 02/21/20 (01/16/20: Progressing) Assessment Summary Assessment Pt had a hard time positioning on gait stance of toe off for gluteal strengthening due to fatigue on lower leg and onset of LBP at sacral level with RLE behind. Physical Therapy Plan Frequency and Duration Frequency of Treatment 2x/Week Duration of Treatment 8 weeks Plan of Care Start Date 12/22/19 Plan of Care End Date 02/21/20 Next Visit Focus/Plan Next Note Type Treatment Note Next Visit Plan Reviewed HEP (sitting HIP ER stretch), Modalities at end only if needed due to HX: leg/face CA, RTHA, Latex Allergy. Progress onto HEP of strengthening for shoulders for functional activities and back. Assess gait or balance effect on LBP onset. Correct standing posture per pt education and training. DC at end of week to HEP if pt is independent w/ex's.
--- NOTE | 2020-01-30 12:40 | PT.OTN ---
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 Current Complaints R LBP & R shoulder pain History of Current Condition States she went to see Dr. Carrasco for her back and R shoulder pain. Currently she feels her R shoulder is fine, except when she sleeps too long on her shoulder and had pain when trying to open a sliding glass window. Minimal bother of R shoulder only because she is R handed. States the low back pain is bothersome when leaning over to brush teeth, make bed, do dishes. Pain is on the R posterolateral side and only on the L when doing prolonged activities as previously mentioned. Any leaning over for 3-5' or more causes sharp stabbing pain, usually on the R. Today sharp pain in L posterolateral LB with sit to stand Prior Treatments and Tests Chiropractor treatments and acupuncture for past 4 yrs, with relief attending 2-3x/ week. Was told to do dishes standing with R foot up on stool. She hasn't because of instability . Future Testing and Treatments Planned No plans at this time. Covid restrictions in place at this time. Developmental History Developmental History Inguinal hernia repair 2 yrs ago. Treatment Goals Patient/Caregiver Goals Pt goals: 1) [place] teeth without back pain. 2) Wash dishes without back pain. 3) Transfer (sit to stand) without back pain. 4) Make her bed without back pain. 5) HEP for strengthening of R shoulder. Prior Functional Status Baseline Function- ADL's Independent Baseline Function- Mobility Independent Baseline Function- Gait Ambs without an assistive device. Baseline Function- Other Back pain her entire adult life due to scoliosis. Current Functional Impairments (Reported) Functional Limitations- ADL's LBP limits: making beds, brushing teeth, washing dishes , sometimes with sit to stand. R shoulder: hindered with moving of sliding window. Functional Limitations- Mobility/Gait Uses a shopping cart for stability with gait. 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 Wore waist brace because back was getting tired hurting because was doing normal house cleaning, but removed it because it was tight and was good the rest of the day. Currently no back pain, just normal groin pain. PT-OP-E Functional Tests Start: 12/22/19 09:52 Freq: Status: Active Protocol: Document 01/02/20 15:05 LRN (Rec: 01/02/20 16:12 LRN [id number]) Functional Tests Apley's Scratch Test Action 1- Left Mid Spine Action 1- Right Mid Spine Action 2- Left T3 Action 2- Right T3 Action 3- Left T5 Action 3- Right T7 PT-OP-G Mobility & Gait Start: 12/22/19 09:52 Freq: Status: Active Protocol: Document 12/22/19 09:52 LRN (Rec: 12/23/19 18:30 LRN [id number]) OP Mobility Evaluation Bed Mobility Supine to and from Sit Independent with poor form: quick lying down in a partial sit up position. Transfers Sit to Stand Independent with sharp pain complain on L posterolateral low back region. OP Gait Assessment Gait Gait Assistance Required: Independent,Standby Assistance Distance (Feet) 75 Able to Maintain Weight Bearing Status Yes During Gait Assistive Devices Assistive Device None Gait Deviations General Gait Pattern Decreased Feet Clearance, Lateral Trunk Lean Factors Limiting Gait Function Factors Limiting Gait Function Abnormal Tonal Influences, Decreased Strength,Poor Safety Awareness Comments Gait Comments Pt has R foot drop, and although aware of need to clear foot from the ground, is not able to 10% of the time when walking on linoleum. She does not appear to have a problem on carpeting. PT-OP-H Neuro Start: 12/22/19 09:52 Freq: Status: Active Protocol: Document 12/22/19 09:52 LRN (Rec: 12/23/19 18:30 LRN [id number]) Sensation Evaluation Gross Sensation Gross Sensation WNL PT-OP-J Posture/Palpation/Skin Start: 12/23/19 18:52 Freq: Status: Active Protocol: Document 12/22/19 09:52 LRN (Rec: 12/23/19 18:55 LRN [id number]) Posture Evaluation Position Standing Evaluation View Posterior T-Spine Posture Flexible Scoliosis on (R) L-Spine Posture Fixed Scoliosis on (L) Comments Posture Comments Pt stood with feet together, R hip flexed 4 deg's, L hip extended 4 deg's. L shoulder/scapula is low & R Iliac Crest is low. Atrophy is present in R Quadratus Lumborum. Palpation Assessment Location R QL Palpation Location R QL Palpation Details Atrophy PT-OP-K Range of Motion Start: 12/22/19 09:52 Freq: Status: Active Protocol: Document 01/16/20 11:20 LRN (Rec: 01/16/20 12:24 LRN [id number]) Hip Goniometric Range of Motion Hip Left Internal Rotation 20 External Rotation 20 Right Passive Internal Rotation 35 External Rotation 30 Hip ROM Limitations Comments R Anterior CHERI Eugene Hernia repair. PT-OP-M Strength Start: 12/22/19 09:52 Freq: Status: Active Protocol: Document 01/23/20 11:20 LRN (Rec: 01/23/20 12:24 LRN [id number]) Hip Strength Hip Manual Muscle Testing Left Extension (S1) 4 Good Right Extension (S1) 3 Fair PT-OP-Q Treatments Start: 12/22/19 09:52 Freq: Status: Active Protocol: Document 01/30/20 11:19 LRN (Rec: 01/30/20 12:09 LRN [id number]) Therapeutic Exercises Sidelying Exercises Shoulder Horizontal AB Sidelying Exercise Name Active Shoulder Horiz AB Side bilateral Reps/Minutes 10x each Comments Training for proper movement to avoid pain. Sitting Exercises Hip ER stretch Sitting Exercise Name Hip ER with foot on step stool and thigh supported by chair seat Side bilateral Reps/Minutes 60 H x 1 f/b active stretch x 10 Comments L is worse than R Shoulder IR Sitting Exercise Name Shoulder IR strengthening Side bilateral Resistance Lev 1 TB Reps/Minutes 15x Comments Training for proper resistance for no pain with ex Shoulder ER Sitting Exercise Name Shoulder ER strengthening Side bilateral Resistance Lev 1 TB Reps/Minutes 15x Comments Training for proper resistance for no pain with ex Standing Exercises Shoulder D2 Diagonal Standing Exercise Name AROM: Hand above head to opposite hip, palm out > palm back Side bilateral Reps/Minutes 15x Shoulder D1 Diagonal Standing Exercise Name AROM: Hand from side to opposite shoulder, palm out > palm back Side bilateral Reps/Minutes 15x Wall push ups Standing Exercise Name Wall push ups Reps/Minutes 10 x Arm circles Standing Exercise Name Arm circles Side bilateral Comments Training for engaging scapula and for proper arm position ( neutral) Self-Care/Home Management Treatment Education Patient Education Home Exercise Program Activities Self-Care/Home Management Activities Issued & reviewed shoulder strengthening HEP: Wall push up, Diagonal D1, D2, Shoulder ER/IR, and horiz AB. PT-OP-T Assessment and Plan Start: 12/22/19 09:52 Freq: Status: Active Protocol: Document 01/30/20 11:19 LRN (Rec: 01/30/20 12:09 LRN [id number]) Physical Therapy Assessment Goals Three Impairment LB weakness causing LBP and posterolateral back pain of 5/ 10 (R>L) Short Term Goal (STG) Pt will be able to perform a quick timed activity (less than 3') of brushing her teeth without low back pain. (01/16/20: No pain if bend knees during activity). STG Duration 01/26/20 (01/16/20: Modified posture to meet goal) Residential Goal (LTG) Patient will be able to wash her dishes with LBP no greater than of 1/10. (01/16/20: No pain if bend knees during activity). LTG Duration 02/21/20 (01/16/20: Modified posture to meet goal) Two Impairment Decreased Trunk mobility resulting in LBP Short Term Goal (STG) Pt will be able to transfer sit to stand without onset of sharp back pain. STG Duration 01/26/20 (01/02/20: GOAL MET) Grief Counselor Goal (LTG) Pt will be able to make her bed with pain no greater than 1/10, with positional rest breaks during the activity. (01/16/20: Pt can sit to make bed without pain, only fatigue ). (Initial trunk AROM: Flex 25 deg's with 18 deg's hip flex and starting at 10 deg's, ext 5 deg's with 5 deg's hip ext, rot 5 deg's left, 10 deg's right; SB 5 deg's bilaterally) LTG Duration 02/21/20 (01/16/20: Progressing) One Impairment Pt lacks an appropriate self care HEP for R shoulder & low back. Short Term Goal (STG) Pt will be independent in a self care HEP of R shoulder strengthening exercises. (12/29/19: Progressing, needs scapular & deltoid strengthening) STG Duration 01/05/20 (01/02/20: GOAL MET) Residential Goal (LTG) Pt will be independent in a self care HEP to manage her low back pain. LTG Duration 02/21/20 (01/16/20: Progressing) Progress Towards Goals Progress Comments Progressed HEP to include UE strengthening. Assessment Summary Assessment Pt is restricted with L hip ER due to previous hernia. She was able to limit stretch to tolerance. Removed supine eugene hip ER stretch from her HEP. Pt had R shoulder discomfort while doing shoulder ex's that dissapated with stopping of exercise. Physical Therapy Plan Frequency and Duration Frequency of Treatment 2x/Week Duration of Treatment 8 weeks Plan of Care Start Date 12/22/19 Plan of Care End Date 02/21/20 Next Visit Focus/Plan Next Note Type Discharge Summary Next Visit Plan Assess goals for DC if pt is independent and safe w/home ex 's. Assess gait or balance effect on LBP onset. Assess standing posture per pt education. Modalities at end only if needed due to HX: leg /face CA, RTHA, Latex Allergy.
--- NOTE | 2020-02-28 09:22 | PT.OPDS ---
Current Diagnoses Muscle weakness (generalized) (01/30/20) Impingement syndrome of unspecified shoulder (01/30/20) Abnormal posture (01/30/20) Visit Care Team Role Provider Type Mayra Schultz MD Primary Care Provider Physician Specialty: Internal Medicine Address: [address] [place] [address], [id number] Email: [email or web address] Ayden Lino DO Attending Provider Physician Referring Provider Specialty: Physiatry Pain Management Address: [facility] [place], [address] Email: [email or web address] Visit Number Visit Number 8 Discharge Summary PT-OP-B Current Condition Start: 12/22/19 09:52 Freq: Status: Active Protocol: Document 12/22/19 09:52 LRN (Rec: 12/22/19 10:45 LRN [id number]) Current Condition History of Current Condition Onset Date R LBP entire adult life due to scoliosis, R shldr - 1 yr ago after fall. Current Complaints R LBP & R shoulder pain History of Current Condition States she went to see Dr. Carrasco for her back and R shoulder pain. Currently she feels her R shoulder is fine, except when she sleeps too long on her shoulder and had pain when trying to open a sliding glass window. Minimal bother of R shoulder only because she is R handed. States the low back pain is bothersome when leaning over to brush teeth, make bed, do dishes. Pain is on the R posterolateral side and only on the L when doing prolonged activities as previously mentioned. Any leaning over for 3-5' or more causes sharp stabbing pain, usually on the R. Today sharp pain in L posterolateral LB with sit to stand Prior Treatments and Tests Chiropractor treatments and acupuncture for past 4 yrs, with relief attending 2-3x/ week. Was told to do dishes standing with R foot up on stool. She hasn't because of instability . Future Testing and Treatments Planned No plans at this time. Covid restrictions in place at this time. Developmental History Developmental History Inguinal hernia repair 2 yrs ago. Treatment Goals Patient/Caregiver Goals Pt goals: 1) [place] teeth without back pain. 2) Wash dishes without back pain. 3) Transfer (sit to stand) without back pain. 4) Make her bed without back pain. 5) HEP for strengthening of R shoulder. Prior Functional Status Baseline Function- ADL's Independent Baseline Function- Mobility Independent Baseline Function- Gait Ambs without an assistive device. Baseline Function- Other Back pain her entire adult life due to scoliosis. Current Functional Impairments (Reported) Functional Limitations- ADL's LBP limits: making beds, brushing teeth, washing dishes , sometimes with sit to stand. R shoulder: hindered with moving of sliding window. Functional Limitations- Mobility/Gait Uses a shopping cart for stability with gait. 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 Wore waist brace because back was getting tired hurting because was doing normal house cleaning, but removed it because it was tight and was good the rest of the day. Currently no back pain, just normal groin pain. PT-OP-E Functional Tests Start: 12/22/19 09:52 Freq: Status: Active Protocol: Document 01/02/20 15:05 LRN (Rec: 01/02/20 16:12 LRN [id number]) Functional Tests Apley's Scratch Test Action 1- Left Mid Spine Action 1- Right Mid Spine Action 2- Left T3 Action 2- Right T3 Action 3- Left T5 Action 3- Right T7 PT-OP-G Mobility & Gait Start: 12/22/19 09:52 Freq: Status: Active Protocol: Document 12/22/19 09:52 LRN (Rec: 12/23/19 18:30 LRN [id number]) OP Mobility Evaluation Bed Mobility Supine to and from Sit Independent with poor form: quick lying down in a partial sit up position. Transfers Sit to Stand Independent with sharp pain complain on L posterolateral low back region. OP Gait Assessment Gait Gait Assistance Required: Independent,Standby Assistance Distance (Feet) 75 Able to Maintain Weight Bearing Status Yes During Gait Assistive Devices Assistive Device None Gait Deviations General Gait Pattern Decreased Feet Clearance, Lateral Trunk Lean Factors Limiting Gait Function Factors Limiting Gait Function Abnormal Tonal Influences, Decreased Strength,Poor Safety Awareness Comments Gait Comments Pt has R foot drop, and although aware of need to clear foot from the ground, is not able to 10% of the time when walking on linoleum. She does not appear to have a problem on carpeting. PT-OP-H Neuro Start: 12/22/19 09:52 Freq: Status: Active Protocol: Document 12/22/19 09:52 LRN (Rec: 12/23/19 18:30 LRN [id number]) Sensation Evaluation Gross Sensation Gross Sensation WNL PT-OP-J Posture/Palpation/Skin Start: 12/23/19 18:52 Freq: Status: Active Protocol: Document 12/22/19 09:52 LRN (Rec: 12/23/19 18:55 LRN [id number]) Posture Evaluation Position Standing Evaluation View Posterior T-Spine Posture Flexible Scoliosis on (R) L-Spine Posture Fixed Scoliosis on (L) Comments Posture Comments Pt stood with feet together, R hip flexed 4 deg's, L hip extended 4 deg's. L shoulder/scapula is low & R Iliac Crest is low. Atrophy is present in R Quadratus Lumborum. Palpation Assessment Location R QL Palpation Location R QL Palpation Details Atrophy PT-OP-K Range of Motion Start: 12/22/19 09:52 Freq: Status: Active Protocol: Document 01/16/20 11:20 LRN (Rec: 01/16/20 12:24 LRN [id number]) Hip Goniometric Range of Motion Hip Left Internal Rotation 20 External Rotation 20 Right Passive Internal Rotation 35 External Rotation 30 Hip ROM Limitations Comments R Anterior CHERI Eugene Hernia repair. PT-OP-M Strength Start: 12/22/19 09:52 Freq: Status: Active Protocol: Document 01/23/20 11:20 LRN (Rec: 01/23/20 12:24 LRN [id number]) Hip Strength Hip Manual Muscle Testing Left Extension (S1) 4 Good Right Extension (S1) 3 Fair PT-OP-T Assessment and Plan Start: 12/22/19 09:52 Freq: Status: Active Protocol: Document 02/28/20 09:21 MB (Rec: 02/28/20 09:22 JOSÉ LUIS [id number]) Physical Therapy Plan Discharge Physical Therapy Discharge Reasons No Longer Attending PT Discharge Comments Front office spoke with pt and pt stated that surgeon told her to restrain from PT now. Will d/c PT.
== END 2020-02-28 14:01 ==
LOC: PHYS 11:15
PROVIDERS: PCP Internal Medicine; Referring Provider Physical Medicine & Rehabilitation; Visit Provider Physical Medicine & Rehabilitation
DX: M75.40 Impingement syndrome of unspecified shoulder (principal); M62.81 Muscle weakness (generalized); R29.3 Abnormal posture
CPT/HCPCS: 97110; 97116; 97162; 97535

== ENCOUNTER → 2020-04-07 11:23 | Outpatient (CLI) | payer MEDICARE, OTHER, SELFPAY ==
--- NOTE | 2020-04-07 | DI.MG.S_ITS ---
BILATERAL DIGITAL SCREENING MAMMOGRAM 3D/2D WITH CAD: 04/07/2020 CLINICAL: Routine screening. Family history of breast cancer. Comparison is made to exams dated: 10/11/2018 mammogram, 08/12/2017 mammogram, and 06/16/2016 mammogram - [facility]. The tissue of both breasts is heterogeneously dense. This may lower the sensitivity of mammography. Current study was also evaluated with a Computer Aided Detection (CAD) system. There are benign vascular calcifications in both breasts. There is a mole marker on the right breast. There are mole markers on the left breast. No significant masses, calcifications, or other findings are seen in either breast. There has been no significant interval change. IMPRESSION: BENIGN There is no mammographic evidence of malignancy. A 1 year screening mammogram is recommended. This exam was interpreted at Station ID: [id number]. NOTE: For mammograms, a report in lay terms will be sent to the patient. Approximately 15% of breast malignancies will not be visualized mammographically. In the management of a palpable breast mass, a negative mammogram must not discourage biopsy of a clinically suspicious lesion. Electronically Signed By: Prabhakar mak/aditya:04/09/2020 08:00:11 letter sent: Normal Exam ACR BI-RADS Category 2: Benign Finding(s) [id number]
== END ==
PROVIDERS: PCP Internal Medicine; Referring Provider Internal Medicine; Visit Provider Internal Medicine
DX: Z12.31 Encounter for screening mammogram for malignant neoplasm of breast (principal); Z80.3 Family history of malignant neoplasm of breast
CPT/HCPCS: 77063; 77067

== ENCOUNTER → 2020-05-29 10:24 | Outpatient (CLI) | payer MEDICARE, OTHER, SELFPAY ==
--- NOTE | 2020-05-29 12:18 | DI.CT.S_ITS ---
PROCEDURE: CT ABDOMEN PELVIS W CON INDICATIONS: Left lower quadrant pain TECHNIQUE: After the administration of oral and intravenous contrast, 5 mm thick sections acquired from the diaphragms to the symphysis. 5 mm thick coronal and sagittal reformats were performed. For radiation dose reduction, the following was used: automated exposure control, adjustment of mA and/or kV according to patient size. COMPARISON: [facility], CT, CT ABDOMEN PELVIS W CON, 04/12/2019, 14:16. [facility], CT, CT ABDOMEN PELVIS W CON, 05/25/2018, 13:32. FINDINGS: Image quality: Excellent. ABDOMEN: Lung bases: Lung bases are clear. Heart size is normal. Solid organs: Liver is normal in size and enhancement. Diaphragmatic muscle slips are present bilaterally anterior to the right upper quadrant and left upper quadrant superiorly, and do not represent evidence of ascites. Gallbladder is positioned laterally on the right, as was previously the case, and shows no inflammation or obstruction . Biliary system is non-dilated. Pancreas enhances normally. Spleen is normal in size and enhancement. No adrenal nodules. Kidneys are normal in size and enhancement, without hydronephrosis. Peritoneum and bowel: Stomach, small bowel, and colon loops are normal in caliber and wall thickness. No free fluid or air. Mild colonic obstipation. Nodes and vessels: No retroperitoneal or mesenteric adenopathy. Aorta and inferior vena cava are normal in caliber. Miscellaneous: No ventral hernias. PELVIS: Genitourinary: Bladder wall thickness is normal. Miscellaneous: No inguinal hernias or adenopathy. Mild colonic obstipation. 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 Bones: No suspicious bony lesions. No vertebral body compression fractures. IMPRESSION: Source of pain is not found. Quality of visualization of the lower pelvis is limited as discussed by metal artifact from right total hip arthroplasty. Mild colonic obstipation within the abdomen and pelvis. No free fluid found throughout the peritoneal space. The appearance is little if any changed from the comparison study dated 04/12/19. Dictated by: Yovani Marina M.D. on 05/29/2020 at 12:12 Approved by: Yovani Marina M.D. on 05/29/2020 at 12:17
== END ==
PROVIDERS: PCP Internal Medicine; Referring Provider Student in an Organized Health Care Education/Training Program; Visit Provider Student in an Organized Health Care Education/Training Program
DX: R10.32 Left lower quadrant pain (principal); K59.00 Constipation, unspecified; Z96.641 Presence of right artificial hip joint
CPT/HCPCS: 74177; Q9967

== ENCOUNTER → 2020-06-25 11:19 | Outpatient (ROUT) | payer MEDICARE, OTHER, SELFPAY ==
[2020-06-25 11:55] LABS: INR 3.5 (0.9-1.3); Prothrombin Time 39.5 SECONDS (10.1-12.7)
== END ==
PROVIDERS: PCP Internal Medicine; Visit Provider Internal Medicine
DX: I48.91 Unspecified atrial fibrillation (principal); Z86.79 Personal history of other diseases of the circulatory system
CPT/HCPCS: 85610

== ENCOUNTER → 2020-07-02 16:00 | Outpatient (CLI) | payer MEDICARE, OTHER, SELFPAY ==
--- NOTE | 2020-07-02 | DI.CT.S_ITS ---
PROCEDURE: CT HEAD/BRAIN WO CON INDICATIONS: Unspecified injury of head, initial encounter TECHNIQUE: Noncontrast 4.5 mm thick angled axial sections acquired from the foramen magnum to the vertex, with coronal and sagittal reformats. For radiation dose reduction, the following was used: automated exposure control, adjustment of mA and/or kV according to patient size. COMPARISON: [facility], CT, HEAD WITHOUT CONTRAST, 03/04/2013, 16:01. FINDINGS: Image quality: Excellent. CSF spaces: Basal cisterns are patent. No change in septated left posterior fossa cystic focus measuring roughly 40 mm diameter.. The ventricles are symmetric in size and shape. Brain: No intracranial bleeds or masses. There is cerebral volume loss for age, with resultant ventricular and sulcal prominence. There are periventricular and deep white matter chronic small vessel ischemic changes. There is intracranial internal carotid artery atherosclerosis. Skull and face: Calvarium and visualized facial bones appear intact, without suspicious lesions. Sinuses: Visualized sinuses and mastoids are clear. IMPRESSION: 1. No acute intracranial abnormality. 2. No change in left posterior fossa arachnoid cyst. Dictated by: Sascha Morfin M.D. on 07/02/2020 at 16:47 Approved by: Sascha Morfin M.D. on 07/02/2020 at 16:49
== END ==
PROVIDERS: PCP Internal Medicine; Referring Provider Internal Medicine; Visit Provider Internal Medicine
DX: S09.90XA Unspecified injury of head, initial encounter (principal); G93.0 Cerebral cysts; I65.29 Occlusion and stenosis of unspecified carotid artery; R29.6 Repeated falls; Z79.01 Long term (current) use of anticoagulants
CPT/HCPCS: 70450

== ENCOUNTER → 2020-07-09 15:26 | Outpatient (ROUT) | payer MEDICARE, OTHER, SELFPAY ==
[2020-07-09 15:38] LABS: INR 2.3 (0.9-1.3); Prothrombin Time 26.9 SECONDS (10.1-12.7)
== END ==
PROVIDERS: PCP Internal Medicine; Visit Provider Internal Medicine
DX: I48.91 Unspecified atrial fibrillation (principal); Z79.01 Long term (current) use of anticoagulants
CPT/HCPCS: 85610

== ENCOUNTER → 2020-07-23 15:50 | Outpatient (ROUT) | payer MEDICARE, OTHER, SELFPAY ==
[2020-07-23 15:59] LABS: INR 2.2 (0.9-1.3); Prothrombin Time 25.6 SECONDS (10.1-12.7)
== END ==
PROVIDERS: PCP Internal Medicine; Visit Provider Internal Medicine
DX: Z79.01 Long term (current) use of anticoagulants (principal)
CPT/HCPCS: 85610

== ENCOUNTER → 2020-08-09 12:18 | Outpatient (ROUT) | payer MEDICARE, OTHER, SELFPAY ==
[2020-08-09 12:31] LABS: INR 2.1 (0.9-1.3); Prothrombin Time 24.3 SECONDS (10.1-12.7)
== END ==
PROVIDERS: PCP Internal Medicine; Visit Provider Family Medicine
DX: I48.91 Unspecified atrial fibrillation (principal); Z79.01 Long term (current) use of anticoagulants
CPT/HCPCS: 85610

== ENCOUNTER → 2020-08-24 12:09 | Outpatient (ROUT) | payer MEDICARE, OTHER, SELFPAY ==
[2020-08-24 12:15] LABS: Prothrombin Time 23.1 SECONDS (10.1-12.7)
== END ==
PROVIDERS: PCP Internal Medicine; Visit Provider Family Medicine
DX: Z79.01 Long term (current) use of anticoagulants (principal)
CPT/HCPCS: 85610

== ENCOUNTER → 2020-09-17 14:17 | Outpatient (ROUT) | payer MEDICARE, OTHER, SELFPAY ==
[2020-09-17 15:03] LABS: INR 1.4 (0.9-1.3); Prothrombin Time 16.3 SECONDS (10.1-12.7)
== END ==
PROVIDERS: PCP Internal Medicine; Visit Provider Family Medicine
DX: Z79.01 Long term (current) use of anticoagulants (principal)
CPT/HCPCS: 85610

== ENCOUNTER → 2020-10-01 16:00 | Outpatient (ROUT) | payer MEDICARE, OTHER, SELFPAY ==
[2020-10-01 16:16] LABS: INR 3.2 (0.9-1.3); Prothrombin Time 35.3 SECONDS (10.1-12.7)
== END ==
PROVIDERS: PCP Internal Medicine; Visit Provider Family Medicine
DX: Z79.01 Long term (current) use of anticoagulants (principal)
CPT/HCPCS: 85610

== ENCOUNTER → 2020-10-15 11:47 | Outpatient (ROUT) | payer MEDICARE, OTHER, SELFPAY ==
[2020-10-15 12:09] LABS: INR 3.7 (0.9-1.3); Prothrombin Time 41.7 SECONDS (10.1-12.7)
== END ==
PROVIDERS: Internal Medicine; PCP Internal Medicine; Visit Provider Family Medicine
DX: Z79.01 Long term (current) use of anticoagulants (principal)
CPT/HCPCS: 85610

== ENCOUNTER → 2020-10-25 11:57 | Outpatient (ROUT) | payer MEDICARE, OTHER, SELFPAY ==
[2020-10-25 12:14] LABS: INR 1.2 (0.9-1.3); Prothrombin Time 13.6 SECONDS (10.1-12.7)
== END ==
PROVIDERS: PCP Internal Medicine; Visit Provider Family Medicine
DX: Z79.01 Long term (current) use of anticoagulants (principal)
CPT/HCPCS: 85610

== ENCOUNTER → 2020-10-31 16:11 | Outpatient (ROUT) | payer MEDICARE, OTHER, SELFPAY ==
[2020-10-31 16:31] LABS: INR 2.7 (0.9-1.3); Prothrombin Time 31.1 SECONDS (10.1-12.7)
== END ==
PROVIDERS: PCP Internal Medicine; Visit Provider Family Medicine
DX: Z79.01 Long term (current) use of anticoagulants (principal)
CPT/HCPCS: 85610

== ENCOUNTER → 2020-11-08 08:39 | Outpatient (CLI) | payer MEDICARE, OTHER, SELFPAY ==
--- NOTE | 2020-11-08 | DI.MRI.S_ITS ---
PROCEDURE: MR STROKE Pre- and post-contrast brain MRI, non-contrast brain MR angiogram, pre- and postcontrast neck MR angiogram INDICATIONS: Other symptoms and signs involving cognitive function TECHNIQUE: Brain: Noncontrast axial T1 spin echo, axial T2 fast spin echo, sagittal and axial FLAIR, coronal T2 fast spin echo, axial gradient echo, axial diffusion and ADC through the brain. After the administration of contrast, axial 3D VIBE of the cranial vasculature and brain. Brain MRA: Non-contrast 3-D time of flight MR angiogram, with multiple semxgdz-gyegxnkos-cekaqquzqh (MIP) reformats performed. Neck MRA: Axial and sagittal TruFISP through the neck. Coronal dynamic MR angiogram during administration of contrast in the arterial and venous phases, with 3-dimenstional ukrtrsw-kouwdynvn-cmxznlunlp (MIP) reformats constructed from subtraction images. COMPARISON: [facility], CT, HEAD WITHOUT CONTRAST, 03/04/2013, 16:01. [facility], CT, CT HEAD/BRAIN WO CON, 07/02/2020, 16:26. FINDINGS: Image quality: Excellent. BRAIN: CSF spaces: Ventricles are normal in size and shape. Basal cisterns are patent. There is again seen a posterior fossa arachnoid cyst, which is centered just to the left of the midline posteriorly. Brain: No intracranial bleeds or mass effects. Hdz-white matter interface is normal. Diffusion weighted images show no acute ischemic insults. Brainstem appears normal. Normal intravascular flow voids are present. No abnormal intracranial enhancement. Mild brain parenchymal volume loss and chronic small vessel ischemic change can be seen. Skull and face: Calvarial marrow signal is normal. Orbits appear normal. Sinuses: Sinuses and mastoids are clear. BRAIN MR ANGIOGRAM: Anterior circulation: Intracranial internal carotid arteries are normal in size and enhancement. The flow within the paired anterior cerebral arteries is normal and symmetric. The flow within the middle cerebral arteries is normal and symmetric. The anterior communicating artery is seen. No stenoses, occlusions, or aneurysms. Posterior circulation: The visualized portions of the vertebral arteries demonstrate normal caliber. The right vertebral artery largely terminates in the right posterior inferior cerebellar artery. There is a normal appearing basilar artery. The flow within the posterior cerebral arteries is normal and symmetric. No stenoses, occlusions, or aneurysms. NECK MR ANGIOGRAM: Carotids: Great vessels demonstrate a conventional anatomy as they arise from the aortic arch. The origins of the common carotid arteries appear patent. The calibers and courses of both common carotid arteries are normal. The bifurcation regions appear normal bilaterally. The internal carotid arteries demonstrate normal course and caliber. Posterior circulation: The origins of the vertebral arteries appear patent. More superior portions of both vertebral arteries demonstrate normal course and caliber, with the left vertebral artery dominant to the right. Miscellaneous: Subclavian arteries appear patent. Pre-contrast images through the neck show no soft tissue abnormalities. IMPRESSION: BRAIN MRI: No findings of acute or subacute infarction can be seen. Stable left posterior fossa arachnoid cyst. BRAIN MR ANGIOGRAM: No significant intracranial arterial abnormality is seen. NECK MR ANGIOGRAM: Within the arteries of the neck, no hemodynamically significant stenosis can be seen. Dictated by: Jamir Rosa M.D. on 11/08/2020 at 9:31 Approved by: Jamir Rosa M.D. on 11/08/2020 at 9:37
== END ==
PROVIDERS: PCP Internal Medicine; Referring Provider Internal Medicine; Visit Provider Internal Medicine
DX: R41.89 Other symptoms and signs involving cognitive functions and awareness (principal); G93.0 Cerebral cysts; R27.9 Unspecified lack of coordination; Z86.79 Personal history of other diseases of the circulatory system
CPT/HCPCS: 70548; 70553; A9579

== ENCOUNTER 2021-01-02 08:10 | Emergency (ER) | payer MEDICARE, OTHER, SELFPAY ==
[2021-01-02] VITALS (17 sets, daily range): BP systolic 106–138; BP diastolic 52–73; PULSE 56–92; RESP 15–30; TEMP 35.6–36.2; O2SAT 97–100
--- NOTE | 2021-01-02 08:17 | ED_ITS ---
HPI - Chest Pain General Chief Complaint: Seizure Stated Complaint: Upper abdominal pain Time Seen by Provider: 01/02/21 08:13 Source: patient Mode of arrival: Ambulatory Limitations: no limitations History of Present Illness HPI narrative: 85F former smoker With chronic medical problems is a DNR with limited interventions presents by EMS for evaluation of nausea and epigastric discomfort that started last evening. EMS was activated this morning when family noticed with a thought might be seizure type activity in which she subsequently became a bit pale and sweaty. She did not lose control of her bladder and has no lateral tongue injury nor history of seizures. While you EMS was loading her up she had an episode where she developed bradycardia into the 30s for about 2 minutes. She was transported here as she is a DNR and is not likely to except any intervention. Just prior to arrival she had another episode that resolved within 30 seconds. Patient denies any recent illness medication or dietary change. MD complaint: other Onset: during rest Pain radiation: none Relieving factors: nothing Associated symptoms: nausea Treatments prior to arrival chest pain: none Related Data Home Medications Medication Instructions Recorded Confirmed simvastatin [Zocor] 10 mg PO HS #0 07/23/12 08/07/19 acetaminophen 325 mg PO Q6HP PRN #0 10/13/17 08/07/19 diclofenac sodium [Voltaren] 1 johnson TOPICAL PRN PRN #0 10/13/17 08/07/19 trazodone 25 mg PO QDAY #0 10/13/17 08/07/19 alendronate 70 mg tablet 70 mg PO QWEEK 05/19/18 08/07/19 calcium 630 mg PO DAILY 07/27/19 08/07/19 docusate sodium 2 each PO DAILY 07/27/19 08/07/19 fluticasone propionate 50 1 spray NASAL DAILY 07/27/19 08/07/19 mcg/actuation nasal spray,suspension melatonin 3 mg tablet 3 mg PO BEDTIME PRN 07/27/19 08/07/19 psyllium 1 tsp PO DAILY gram 07/27/19 08/07/19 sertraline 25 mg tablet 25 mg PO DAILY 07/27/19 08/07/19 warfarin 2.5 mg tablet 2.5 mg PO SEEINSTR 09/07/19 09/07/19 warfarin 2.5 mg tablet 5 mg PO DAILY tab 09/07/19 09/07/19 Previous Rx's Medication Instructions Recorded hydrocortisone 2.5 % topical cream 1 applictn TOP BID PRN #28 gram 08/07/19 ondansetron 4 mg PO TID-QID PRN #10 tab 01/02/21 Allergies Allergy/AdvReac Type Severity Reaction Status Date / Time gabapentin [GABAPENTIN] AdvReac Unknown SIDE Verified 09/07/19 13:22 EFFECTS metoprolol [METOPROLOL] AdvReac Unknown SUCCINATE Verified 09/07/19 13:22 - FACIAL FLUSHING pregabalin [From LYRICA] AdvReac Unknown BAD DREAMS Verified 09/07/19 13:22 Latex, Natural Rubber AdvReac Verified 09/07/19 13:22 Review of Systems Constitutional Constitutional: Denies chills, Denies fatigue, Denies fever(s), Denies frequent falls, Denies lethargy and Denies weakness Eyes Eyes: Denies change in vision, Denies eye discharge, Denies irritation and Denies loss of vision ENT Ears, Nose, Mouth, and Throat: Denies change in voice, Denies dizziness, Denies neck pain, Denies sore throat and Denies throat swelling Cardiovascular Cardiovascular: Denies chest pain, Denies irregular heart rhythm, Denies lightheadedness, Denies palpitations, Denies dyspnea, Denies dyspnea on exertion and Denies orthopnea Respiratory Respiratory: Denies cough, Denies dyspnea, Denies dyspnea on exertion and Denies wheezing Gastrointestinal Gastrointestinal: Denies abdominal pain, Denies change in bowel habits, Denies diarrhea, Reports nausea and Denies vomiting Musculoskeletal Musculoskeletal: Denies neck pain and Denies numbness Integumentary/Breasts Skin/Breast: Denies pruritus, Denies erythema, Denies rash and Denies wounds Neurologic Neurologic: Denies behavioral changes, Denies confusion, Denies dizziness, Denies frequent falls, Denies loss of vision, Denies numbness and Denies weakness Psychiatric Psychiatric: Denies anxiety, Denies behavioral changes, Denies confusion, Denies depression, Denies homicidal ideation and Denies suicidal ideation Endocrine Endocrine: Denies fatigue, Denies flushing and Denies palpitations Hematologic/Lymphatic Hematologic/Lymphatic: Denies easy bruising Allergic/Immunologic Allergic/Immunologic: Denies urticaria, Denies throat swelling and Denies wheezing Patient History Medical History Arthritis Atrial fibrillation Bruises easily Constipation History of diverticulosis History of stroke History of stroke (~2009) Hypercholesterolemia Hypertension Impaired vision Inguinal hernia Low back pain Lumbar foraminal stenosis Neuropathy of both feet Pain in both hands Pain in joint involving left pelvic region and thigh Rotator cuff impingement syndrome of right shoulder Scoliosis due to degenerative disease of spine in adult patient Seasonal allergies Ulcerative colitis Urinary frequency Surgical History Colonoscopy planned H/O bilateral cataract extraction History of cataract extraction History of total right hip arthroplasty History of total right hip replacement Family History Father Cancer Unknown Cancer Social History household members: none lives independently: Yes housing: house Smoking Status: Former smoker (Quit 1996) alcohol intake: current Smoking Status: Former smoker (Quit 1996) alcohol intake frequency: 0-2 drinks per day Substance Use Type: does not use Exam Narrative Exam Narrative: GENERAL: [[age]] year old patient appears stated age. ill-appearing, elderly HEAD: Atraumatic. Normocephalic. EYES: Pupils equal round and reactive. Extraocular motions intact. No scleral icterus. No injection or drainage. ENT: Nose without bleeding, purulent drainage. Throat without erythema, tonsillar hypertrophy or exudate. Airway patent. NECK: Trachea midline. Non tender CARDIOVASCULAR: Regular rate and rhythm without murmurs, gallops, or rubs. RESPIRATORY: Clear to auscultation. Breath sounds equal bilaterally. No wheezes, rales, or rhonchi. GASTROINTESTINAL: Abdomen soft, non-tender, nondistended. EXTREMITIES: No edema or joint tenderness. BACK: Nontender without deformity or crepitance. No flank tenderness. NEURO: AOx3. SKIN: No rash or erythema of visible areas Initial Vital Signs Initial Vital Signs: Vital Signs Pulse Rate 72 01/02/21 08:18 Respiratory Rate 18 01/02/21 08:18 Pulse Oximetry 99 01/02/21 08:18 Course Orders Ordered: ED Orders 01/02/21 10:02 XR abdomen min 2V Stat 01/02/21 11:07 CT abdomen pelvis w con Stat Discontinued Medications Sodium Chloride (Normal Saline 0.9%) 1,000 mls @ 125 mls/hr IV CONT MARAH Last Infusion: 01/02/21 12:40 Dose: 125 mls/hr Documented by: Admin: 01/02/21 08:37 Dose: 125 mls/hr Documented by: RIOS Vital Signs Vital signs: Vital Signs - 8 hr 01/02/21 11:13 01/02/21 11:17 01/02/21 11:20 Temperature 97.2 F L Pulse Rate 66 81 Respiratory Rate 23 Blood Pressure 128/68 Pulse Oximetry 99 97 01/02/21 11:30 01/02/21 11:31 01/02/21 12:00 Temperature Pulse Rate 92 H 70 78 Respiratory Rate 30 H 19 24 Blood Pressure 116/52 L 126/64 Pulse Oximetry 98 97 99 MDM - Chest Pain Lab Data Result diagrams: 01/02/21 07:40 01/02/21 07:40 Labs: Lab Results 01/02/21 01/02/21 01/02/21 Range/Units 07:00 07:40 07:40 WBC 9.4 (4.5-11.0) X10^3/uL RBC 3.95 L (4.0-5.2) X10^6/uL Hgb 12.5 (12.0-16.0) g/dL Hct 37.9 (36-46) % MCV 95.9 (80-100) fL MCH 31.5 (26-34) PG MCHC 32.9 (30-36) % RDW 12.3 (11.6-14.8) % Plt Count 207 (150-400) X10^3/uL Neut % (Auto) 46.1 L (50-75) % Lymph % (Auto) 44.5 H (25-40) % Duval % (Auto) 7.7 (3-14) % Eos % (Auto) 0.7 L (2-4) % Baso % (Auto) 1.0 (0-2) % Neut # (Auto) 4300 (2260-6743) /uL Lymph # (Auto) 4200 (1575-1814) /uL Duval # (Auto) 700 (0-900) /uL Eos # (Auto) 100 (0-450) /uL Baso # (Auto) 100 (0-100) /uL Sodium 132 L (137-145) mmol/L Potassium 3.5 (3.4-5.1) mmol/L Chloride 98 (98-107) mmol/L Carbon Dioxide 27 (22-32) mmol/L BUN 18 H (7-17) mg/dL Creatinine 0.52 (0.52-1.04) mg/dL Estimated GFR > 60.0 (>60) mL/min BUN/Creatinine Ratio 34.6 H (6-22) Glucose 128 H (80-110) mg/dL Calcium 9.5 (8.4-10.2) mg/dL Magnesium 1.9 (1.6-2.3) mg/dL Total Bilirubin 1.1 (0.2-1.3) mg/dL AST 39 H (14-36) IU/L ALT 27 (<35) IU/L Alkaline Phosphatase 60 (38-126) U/L Total Creatine Kinase 112 (30-135) U/L CK-MB (CK-2) 4.48 H (<2.37) ng/mL CK-MB (CK-2) Rel Index 4.0 (1.5-5.0) % Troponin I < 0.012 (0.01-0.034) ng/mL NT-Pro-B Natriuret Pep 633 H (<450) pg/mL Total Protein 7.1 (6.3-8.2) g/dL Albumin 4.0 (3.5-5.0) g/dL Globulin 3.1 (1.7-4.1) g/dL Albumin/Globulin Ratio 1.3 (1.0-2.8) Urine Color Yellow Urine Appearance Clear Urine pH 7.0 (4.5-8.0) Ur Specific [place] 1.020 (1.000-1.035) Urine Protein Negative (Negative) Urine Glucose (UA) Negative (Negative) g/dL Urine Ketones Trace H (NEGATIVE) Urine Occult Blood 3+ H (Negative) Urine Nitrate Negative (Negative) Urine Bilirubin Negative (NEGATIVE) Urine Urobilinogen 0.2 (0.2) E.U./dL Ur Leukocyte Esterase Negative (NEGATIVE) Urine RBC 5-10/hpf H (0-5/HPF) Urine WBC None seen (0-5/HPF) Urine Bacteria None seen (None) Ur Culture Indicated? Cult not indicated Point of Care Testing Glucose POC 137 Urine Dip Bedside Urine Glucose Negative Bedside Urine Bilirubin - Negative Bedside Urine Ketone - Negative Urine Specific [place] 1.015 Bedside Urine Occult Blood ++ Bedside Urine pH 6.5 Bedside Urine Protein - Negative Bedside Urine Urobilinogen - Negative Bedside Urine Nitrite - Negative Bedside Urine Leukocytes - Negative Esterase Imaging Data CT scan - abdomen/pelvis: Radiologist's Impression: [address] [id number] Scan ReportSigned Patient: Deven Rodriguez RMR#: [id number]: 1935cct:[id number]/Sex: 85 / FDate of Service: 01/02/21Loc: EDAccession Number: [id number] Procedure: CT abdomen pelvis w con Ordering Provider: Abel Saldana D.O. PROCEDURE: CT ABDOMEN PELVIS W CON INDICATIONS: severe epigastric pain with vomiting and lower pain TECHNIQUE: After the administration of intravenous contrast, axial sections acquired from the lung bases to the pubic symphysis. Coronal and sagittal reformats were performed. For radiation dose reduction, the following was used: automated exposure control, adjustment of mA and/or kV according to patient size. COMPARISON: [facility], CT, CT ABDOMEN PELVIS W CON, 05/29/2020, 11:54. [facility], CT, CT ABDOMEN PELVIS W CON, 04/12/2019, 14:16. FINDINGS: Image quality: Limited by absence of oral contrast and mesenteric and retroperitoneal significant fat. Lung bases: Emphysematous change with pulmonary hyperexpansion. Heart: No significant findings. ABDOMEN: Liver: Unremarkable. Gallbladder: Positioning to the right. Biliary ducts: Unremarkable. Pancreas: Unremarkable. Spleen: Unremarkable. Adrenal Glands: Unremarkable. Kidneys and Ureters: Unremarkable except for low lying right kidney.. Stomach and Bowel: Stomach, small bowel loops, and colon are unremarkable. Peritoneum: No abnormal intraperitoneal fluid. No free air. Ventral Wall: No hernias. Abdominal Nodes: No retroperitoneal or mesenteric adenopathy by size criteria. Vessels: Aorta and inferior vena cava are normal in size. PELVIS: Pelvic Organs: Unremarkable. Bladder: Unremarkable. Pelvic Nodes: No enlarged lymph nodes. Miscellaneous: No hernias are seen. Bones: Unremarkable. IMPRESSION: The patient has very little mesenteric and retroperitoneal fat. In this setting the absence of oral contrast significantly reduces the quality of visualization and ability to differentiate between large and small bowel. Additional degradation of image quality is related to a large degree of metal artifact from a right total hip arthroplasty Emphysematous change and pulmonary hyperexpansion noted at the lung bases, previously also the case, but without basilar pneumonia. Subhepatic gallbladder, no sign of acute cholecystitis or biliary obstruction. Right kidney is low lying partially within the right iliac fossa. Dictated by: Yovani Marina M.D. on 01/02/2021 at 11:25 Approved by: Yovani Marina M.D. on 01/02/2021 at 11:30 MDM Narrative Medical decision making narrative: 85-year-old female is a DNR with limited intervention but feeling poorly and open to the therapies performed here. It seems unlikely that her activity was seizure activity as opposed to a vagal episode due to dry heaving and vomiting. She had 2 more episodes immediately following dry heaving episodes with the medics in which she bradyed down to the 30. She had a very reassuring exam, labs and imaging. She felt tremendous improvement he was observed for few hours. She was ambulating through the [facility] Discharge Plan Departure Patient Disposition: Home Clinical Impression: Nausea Instructions: DI for Nausea -- Adult Activity Restrictions/Additional Instructions: *You have been diagnosed with [nausea and abdominal pain with very reassuring blood work and imaging] *What to do: *Please continue to take your regular medications as directed. [x ] New medication prescriptions sent to your pharmacy: [[facility] ] [ ] New medication written as a paper prescription [ ] No new medications given *Please follow up with your primary care provider in 2-3 days, call for an appointment. Let them know you were seen in the Emergency Department and that we ask that you be seen in follow up. We will electronically transmit a record of today's note if your PCP is in our system *If you do not have a primary care provider please contact the [facility] Resource line at [phone]. They will ask some questions about your medical history and help get you set up with a doctor in the community. *Return to Emergency Department if you should have any new, worsening or concerning symptoms, such as [fever greater than 101 F, shaking chills, worsening pain, persistent vomiting or other bothersome symptoms] Prescriptions: New ondansetron 4 mg tablet,disintegrating 4 mg PO TID-QID PRN (Reason: nausea and vomiting) Qty: 10 RF: 0 No Action alendronate 70 mg tablet 70 mg PO QWEEK RF: 0 hydrocortisone 2.5 % cream 1 applictn TOP BID PRN (Reason: skin irritation) Qty: 28 RF: 0 simvastatin [Zocor] 10 MG tablet 10 mg PO HS Qty: 0 RF: 0 diclofenac sodium [Voltaren] 1 % gel 1 johnson Topical PRN PRN (Reason: Pain) Qty: 0 RF: 0 trazodone 50 MG tablet 25 mg PO QDAY Qty: 0 RF: 0 acetaminophen 325 MG tablet 325 mg PO Q6HP PRN (Reason: pain) Qty: 0 RF: 0 warfarin 2.5 mg tablet 5 mg PO DAILY RF: 0 warfarin 2.5 mg tablet 2.5 mg PO SEEINSTR RF: 0 fluticasone propionate [Allergy Relief (fluticasone)] 50 mcg/actuation spray,suspension 1 spray NASAL DAILY RF: 0 sertraline 25 mg tablet 25 mg PO DAILY RF: 0 calcium 630 mg PO DAILY RF: 0 melatonin 3 mg tablet 3 mg PO BEDTIME PRNRF: 0 docusate sodium 2 each PO DAILY RF: 0 psyllium Powder 1 tsp PO DAILY RF: 0 Referrals: Lorie Carpenter ARNP [Primary Care Provider] -
[2021-01-02 08:22] LABS: Add Manual Diff / Slide Review NO; Basophils Absolute Auto 100 /uL (0-100); Eosinophils Absolute Auto 100 /uL (0-450); Eosinophils Percent Auto 0.7 % (2-4); Hematocrit 37.9 % (36-46); Hemoglobin 12.5 g/dL (12.0-16.0); Lymphocytes Absolute Auto 4200 /uL (1100-4500); Lymphocytes Percent Auto 44.5 % (25-40); Mean Corpuscular HGB Conc 32.9 % (30-36); Mean Corpuscular Hemoglobin 31.5 PG (26-34); Mean Corpuscular Volume 95.9 fL (80-100); Monocytes Absolute Auto 700 /uL (0-900); Monocytes Percent Auto 7.7 % (3-14); Neutrophils Absolute Auto 4300 /uL (1500-7000); Neutrophils Percent Auto 46.1 % (50-75); Platelet Count 207 X10^3/uL (150-400); Red Blood Cell Count 3.95 X10^6/uL (4.0-5.2); Red Cell Distribution Width 12.3 % (11.6-14.8); White Blood Cell Count 9.4 X10^3/uL (4.5-11.0)
[2021-01-02 08:36] LABS: Alanine Aminotransferase 27 IU/L (<35); Albumin Globulin Ratio 1.3 (1.0-2.8); Alkaline Phosphatase 60 U/L (38-126); Aspartate Aminotransferase 39 IU/L (14-36); BUN Creatinine Ratio 34.6 (6-22); Bilirubin Total 1.1 mg/dL (0.2-1.3); Blood Urea Nitrogen 18 mg/dL (7-17); Calcium 9.5 mg/dL (8.4-10.2); Carbon Dioxide 27 mmol/L (22-32); Chloride 98 mmol/L (98-107); Creatine Kinase 112 U/L (30-135); Estimated Glomerular Filt Rate > 60.0 mL/min (>60); Globulin 3.1 g/dL (1.7-4.1); Glucose 128 mg/dL (80-110); HEMOLYSIS < 15 (0-50); Magnesium 1.9 mg/dL (1.6-2.3); Potassium 3.5 mmol/L (3.4-5.1); Sodium 132 mmol/L (137-145); Total Protein 7.1 g/dL (6.3-8.2)
[2021-01-02 08:37] LABS: Bacteria Urine None Seen; WBC Urine None Seen (0-5/HPF)
[2021-01-02] MEDS: SODIUM CHLORIDE 0.9% 1,000 ML 125 ML IV (08:37)
[2021-01-02 08:38] LABS: Appearance Urine UA CLEAR; Bilirubin Urine UA NEGATIVE (NEGATIVE); Color Urine UA YELLOW; Glucose Urine UA NEGATIVE (Negative); Ketones Urine UA TRACE (NEGATIVE); Leukocyte Esterase Urine UA NEGATIVE (NEGATIVE); Nitrite Urine UA NEGATIVE (Negative); Occult Blood Urine UA 3+ (Negative); Protein Urine UA NEGATIVE (Negative); Urobilinogen Urine UA 0.2 E.U./dL (0.2)
[2021-01-02 08:45] LABS: Culture Indicated Urine Cult Not Indicated; RBC Urine 5-10/HPF (0-5/HPF)
[2021-01-02 08:47] LABS: NT-proBNP (BNP-Adult 18+) 633 pg/mL (<450); Troponin I < 0.012 ng/mL (0.01-0.034)
[2021-01-02 08:51] LABS: Creatine Kinase MB 4.48 ng/mL (<2.37)
[2021-01-02] MEDS: ONDANSETRON 4 MG/2 ML INJ (09:55)
--- NOTE | 2021-01-02 10:02 | DI.RAD.S_ITS ---
PROCEDURE: XR ABDOMEN MIN 2V INDICATIONS: abdominal pain, N/V TECHNIQUE: 2 views of the abdomen were acquired. COMPARISON: None. FINDINGS: Surgical changes and devices: Right hip arthroplasty. Bowel: No pneumoperitoneum. The bowel gas pattern is normal. Scattered stool. Soft tissues: No masses; visualized solid organ contours appear normal in size. No suspicious abdominal calcifications. Lungs are hyperexpanded suggestive of COPD. Bones: No suspicious bony abnormalities. IMPRESSION: Scattered stool. No acute abdominal process identified. Dictated by: Marcy Juarez M.D. on 01/02/2021 at 11:01 Approved by: Marcy Juarez M.D. on 01/02/2021 at 11:04
--- NOTE | 2021-01-02 11:07 | DI.CT.S_ITS ---
PROCEDURE: CT ABDOMEN PELVIS W CON INDICATIONS: severe epigastric pain with vomiting and lower pain TECHNIQUE: After the administration of intravenous contrast, axial sections acquired from the lung bases to the pubic symphysis. Coronal and sagittal reformats were performed. For radiation dose reduction, the following was used: automated exposure control, adjustment of mA and/or kV according to patient size. COMPARISON: [facility], CT, CT ABDOMEN PELVIS W CON, 05/29/2020, 11:54. [facility], CT, CT ABDOMEN PELVIS W CON, 04/12/2019, 14:16. FINDINGS: Image quality: Limited by absence of oral contrast and mesenteric and retroperitoneal significant fat. Lung bases: Emphysematous change with pulmonary hyperexpansion. Heart: No significant findings. ABDOMEN: Liver: Unremarkable. Gallbladder: Positioning to the right. Biliary ducts: Unremarkable. Pancreas: Unremarkable. Spleen: Unremarkable. Adrenal Glands: Unremarkable. Kidneys and Ureters: Unremarkable except for low lying right kidney.. Stomach and Bowel: Stomach, small bowel loops, and colon are unremarkable. Peritoneum: No abnormal intraperitoneal fluid. No free air. Ventral Wall: No hernias. Abdominal Nodes: No retroperitoneal or mesenteric adenopathy by size criteria. Vessels: Aorta and inferior vena cava are normal in size. PELVIS: Pelvic Organs: Unremarkable. Bladder: Unremarkable. Pelvic Nodes: No enlarged lymph nodes. Miscellaneous: No hernias are seen. Bones: Unremarkable. IMPRESSION: The patient has very little mesenteric and retroperitoneal fat. In this setting the absence of oral contrast significantly reduces the quality of visualization and ability to differentiate between large and small bowel. Additional degradation of image quality is related to a large degree of metal artifact from a right total hip arthroplasty Emphysematous change and pulmonary hyperexpansion noted at the lung bases, previously also the case, but without basilar pneumonia. Subhepatic gallbladder, no sign of acute cholecystitis or biliary obstruction. Right kidney is low lying partially within the right iliac fossa. Dictated by: Yovani Marina M.D. on 01/02/2021 at 11:25 Approved by: Yovani Marina M.D. on 01/02/2021 at 11:30
--- NOTE | 2021-01-02 12:43 | PC.NURSE ---
Pt passed PO challenge and OOB to bathroom with minimal assistance. Dr Saldana aware and pending discharge.
== END 2021-01-02 13:02 | disposition home or self-care (01) ==
PROVIDERS: Emergency Provider Emergency Medicine; PCP Internal Medicine
DX: R11.0 Nausea (principal); R00.1 Bradycardia, unspecified; R56.9 Unspecified convulsions; R10.13 Epigastric pain
CPT/HCPCS: 36415; 51701; 74019; 74177; 80053; 81001; 81003; 82550; 82553; 83735; 83880; 84484; 85025; 93005; 93010; 96361; 96374; 99284; J2405

== ENCOUNTER → 2021-05-20 09:03 | Outpatient (CLI) | payer MEDICARE, OTHER, SELFPAY ==
--- NOTE | 2021-05-20 | DI.US.S_ITS ---
PROCEDURE: US ABDOMEN LIMITED INDICATIONS: RIGHT LOWER QUADRANT SWELLING, MASS, OR LUMP TECHNIQUE: Real-time scanning was performed of the abdominal and retroperitoneal organs, with image documentation. COMPARISON: [facility], CT, CT ABDOMEN PELVIS W CON, 01/02/2021, 11:06. FINDINGS: Within the left and right groin anterior to the iliac vessels, there is a heterogeneous focus of echogenicity with increased vascularity and shadowing. It is poorly visualized and artifact is present within this region. IMPRESSION: Poorly visualized focus of possible mass versus potential surgical mesh within the groins bilaterally. Unable to assess for hernia. CT is recommended for further evaluation. Dictated by: Marcy Juarez M.D. on 05/20/2021 at 14:08 Approved by: Marcy Juarez M.D. on 05/20/2021 at 14:09
== END ==
PROVIDERS: PCP Internal Medicine; Referring Provider Internal Medicine; Visit Provider Internal Medicine
DX: R19.03 Right lower quadrant abdominal swelling, mass and lump (principal)
CPT/HCPCS: 76705

== ENCOUNTER → 2021-08-16 13:18 | Outpatient (CLI) | payer MEDICARE, OTHER, SELFPAY | PROVIDERS: PCP Internal Medicine; Referring Provider Internal Medicine; Visit Provider Internal Medicine | DX: M81.0 Age-related osteoporosis without current pathological fracture (principal); Z78.0 Asymptomatic menopausal state; Z87.891 Personal history of nicotine dependence; Z82.62 Family history of osteoporosis | CPT/HCPCS: 77080 ==

== ENCOUNTER 2022-01-28 13:02 | Emergency (ER) | payer MEDICARE, SELFPAY ==
[2022-01-28] VITALS (20 sets, daily range): BP systolic 107–143; BP diastolic 56–72; PULSE 64–98; RESP 18; TEMP 36.8; O2SAT 96–100; BMI 15.0
--- NOTE | 2022-01-28 13:29 | PC.NURSE ---
pt is very confused. pt states she thinks she is having hallucinations. pt points to medroom in middle of ED and asked if it is raining in that room and then laughs and seeing something so funny. pt states she thought someone was breaking into her house but she was told that no one was there. pt states i am having hallucinations. pt able to answer some questions.
--- NOTE | 2022-01-28 13:43 | DI.RAD.S_ITS ---
PROCEDURE: XR CHEST 1V INDICATIONS: altered mental status TECHNIQUE: One view of the chest was acquired. COMPARISON: [facility], CR, XR CHEST 2V, 07/07/2019, 14:19. FINDINGS: Surgical changes and devices: None. Lungs and pleura: Lungs are clear. No pleural effusions or pneumothorax. The lung volumes are large and the diaphragms are flattened suggesting emphysema. Mediastinum: Mediastinal contours appear normal. Heart size is mildly enlarged, as before. The thoracic arch is calcified and tortuous. Bones and chest wall: No suspicious bony lesions. Overlying soft tissues appear unremarkable. IMPRESSION: No acute cardiopulmonary findings. Emphysematous change. Aortic atherosclerosis. Dictated by: Agatha Rogel M.D. on 01/28/2022 at 15:26 Approved by: Agatha Rogel M.D. on 01/28/2022 at 15:26
--- NOTE | 2022-01-28 13:57 | ED.AMS ---
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 (Negative) Ur Phencyclidine Scrn (Negative) Ur Amphetamines Screen (Negative) U Methamphetamines Scrn (Negative) Ur MDMA Scrn (Ecstasy) (Negative) U Benzodiazepines Scrn (Negative) Urine Cocaine Screen (Negative) U Marijuana (THC) Screen (Negative) 01/28/22 Range/Units 14:38 WBC (4.5-11.0) X10^3/uL RBC (4.0-5.2) X10^6/uL Hgb (12.0-16.0) g/dL Hct (36-46) % MCV (80-100) fL MCH (26-34) PG MCHC (30-36) % RDW (11.6-14.8) % Plt Count (150-400) X10^3/uL Neut % (Auto) (50-75) % Lymph % (Auto) (25-40) % [place] % (Auto) (3-14) % Eos % (Auto) (2-4) % Baso % (Auto) (0-2) % Neut # (Auto) (7117-3876) /uL Lymph # (Auto) (3476-5369) /uL [place] # (Auto) (0-900) /uL Eos # (Auto) (0-450) /uL Baso # (Auto) (0-100) /uL Sodium (137-145) mmol/L Potassium (3.4-5.1) mmol/L Chloride (98-107) mmol/L Carbon Dioxide (22-32) mmol/L BUN (7-17) mg/dL Creatinine (0.52-1.04) mg/dL Estimated GFR (>60) mL/min BUN/Creatinine Ratio (6-22) Glucose (80-110) mg/dL Calcium (8.4-10.2) mg/dL Total Bilirubin (0.2-1.3) mg/dL AST (14-36) IU/L ALT (<35) IU/L Alkaline Phosphatase (38-126) U/L Ammonia (9-30) umol/L Total Protein (6.3-8.2) g/dL Albumin (3.5-5.0) g/dL Globulin (1.7-4.1) g/dL Albumin/Globulin Ratio (1.0-2.8) TSH (0.47-4.68) uIU/mL Urine Color Urine Appearance Urine pH (4.5-8.0) Ur Specific [place] (1.000-1.035) Urine Protein (Negative) Urine Glucose (UA) (Negative) g/dL Urine Ketones (NEGATIVE) Urine Occult Blood (Negative) Urine Nitrate (Negative) Urine Bilirubin (NEGATIVE) Urine Urobilinogen (0.2) E.U./dL Ur Leukocyte Esterase (NEGATIVE) Urine RBC (0-5/HPF) Urine WBC (0-5/HPF) Ur Squamous Epith Cells (0-5/HPF) Urine Bacteria (None) Ur Culture Indicated? Salicylates (<20) mg/dL U Opiates 300ng/mL cut Negative (Negative) Ur Oxycodone Screen Negative (Negative) Urine Methadone Screen Negative (Negative) Ur Barbiturates Screen Negative (Negative) U Tricyclic Antidepress Negative (Negative) Ur Phencyclidine Scrn Negative (Negative) Ur Amphetamines Screen Negative (Negative) U Methamphetamines Scrn Negative (Negative) Ur MDMA Scrn (Ecstasy) Negative (Negative) U Benzodiazepines Scrn Negative (Negative) Urine Cocaine Screen Negative (Negative) U Marijuana (THC) Screen Negative (Negative) Point of Care Testing Glucose POC 85 Discharge Plan Departure Patient Disposition: Home Clinical Impression: Acute confusion, Encounter for medical screening examination Acute cystitis Qualifiers: Hematuria presence: without hematuria Qualified Code(s): N30.00 - Acute cystitis without hematuria Instructions: Acute Cystitis, DI for Altered Mental Status Activity Restrictions/Additional Instructions: *You have been diagnosed with confusion today when you called 911 hearing voices in your house. Your medical screening exam today does not show any big bad new problems however it does appear that you might have a urine infection which is just starting. Please take this antibiotic twice a day for the next three days and drink plenty of water. This may help with your confusion. The rest of your lab work is reassuring do not have any significant infection at this time, your white blood cell count is not elevated, your electrolytes are normal and in range, your kidney function is good without any new signs of any metabolic problems. Please follow-up with your primary care provider next week, return to the emergency department for any new or worsening symptoms. *What to do: *Please continue to take your regular medications as directed. [x ] New medication prescriptions sent to your pharmacy: [ [facility]] [ ] New medication written as a paper prescription [ ] No new medications given *Please follow up with your primary care provider in 2-3 days, call for an appointment. Let them know you were seen in the Emergency Department and that we asked that you be seen for follow-up. We will electronically transmit a record of today's note if your PCP is in our system *If you do not have a primary care provider please contact [phone] to establish care with one of the [facility] primary care providers. *Return to Emergency Department if you should have any new, worsening or concerning symptoms, such as [fever greater than 101F, chills, worsening pain, persistent vomiting or other bothersome symptoms] Prescriptions: No Action alendronate 70 mg tablet 70 mg PO QWEEK hydrocortisone 2.5 % cream 1 applictn TOP BID PRN (Reason: skin irritation) Qty: 28 0RF simvastatin [Zocor] 10 MG tablet 10 mg PO HS Qty: 0 diclofenac sodium [Voltaren] 1 % gel 1 johnson Topical PRN PRN (Reason: Pain) Qty: 0 Label Comments: To Left wrist 4x/day trazodone 50 MG tablet 25 mg PO QDAY Qty: 0 warfarin 2.5 mg tablet 5 mg PO DAILY Rx Instructions: 7 ondansetron 4 mg tablet,disintegrating 4 mg PO TID-QID PRN (Reason: nausea and vomiting) Qty: 10 0RF warfarin 2.5 mg tablet 2.5 mg PO SEEINSTR Rx Instructions: 2x/week, don't know which days fluticasone propionate [Allergy Relief (fluticasone)] 50 mcg/actuation spray,suspension 1 spray NASAL DAILY sertraline 25 mg tablet 25 mg PO DAILY calcium 630 mg PO DAILY melatonin 3 mg tablet 3 mg PO BEDTIME PRN docusate sodium 2 each PO DAILY psyllium Powder 1 tsp PO DAILY Referrals: Lorie Carpenter ARNP [Primary Care Provider] - Visit Report Forms: Patient Portal/API <Slime Mendoza DO - Last Filed: 02/03/22 09:03> Cosign ED Attending Miguel Attestation: I was immediately available in the department for consultation. Documentation has been reviewed. I agree with assessment and plan.
[2022-01-28 14:10] LABS: Add Manual Diff / Slide Review NO; Basophils Absolute Auto 100 /uL (0-100); Basophils Percent Auto 0.8 % (0-2); Eosinophils Absolute Auto 0 /uL (0-450); Eosinophils Percent Auto 0.6 % (2-4); Hematocrit 37.9 % (36-46); Hemoglobin 12.6 g/dL (12.0-16.0); Lymphocytes Absolute Auto 1700 /uL (1100-4500); Mean Corpuscular HGB Conc 33.3 % (30-36); Monocytes Absolute Auto 600 /uL (0-900); Neutrophils Absolute Auto 3800 /uL (1500-7000); Neutrophils Percent Auto 61.6 % (50-75); Platelet Count 197 X10^3/uL (150-400); Red Blood Cell Count 3.95 X10^6/uL (4.0-5.2); Red Cell Distribution Width 12.6 % (11.6-14.8); White Blood Cell Count 6.2 X10^3/uL (4.5-11.0)
[2022-01-28 14:30] LABS: Alanine Aminotransferase 13 IU/L (<35); Albumin 4.1 g/dL (3.5-5.0); Albumin Globulin Ratio 1.2 (1.0-2.8); Alkaline Phosphatase 45 U/L (38-126); Aspartate Aminotransferase 28 IU/L (14-36); BUN Creatinine Ratio 86.5 (6-22); Bilirubin Total 1.2 mg/dL (0.2-1.3); Blood Urea Nitrogen 45 mg/dL (7-17); Calcium 9.4 mg/dL (8.4-10.2); Carbon Dioxide 28 mmol/L (22-32); Chloride 103 mmol/L (98-107); Estimated Glomerular Filt Rate > 60 mL/min (>60); Globulin 3.3 g/dL (1.7-4.1); Glucose 92 mg/dL (80-110); HEMOLYSIS 32 (0-50); Potassium 4.2 mmol/L (3.4-5.1); Sodium 138 mmol/L (137-145); Total Protein 7.4 g/dL (6.3-8.2)
[2022-01-28 14:31] LABS: Ammonia (NH3) < 9 umol/L (9-30); Salicylate < 1.0 mg/dL (<20)
[2022-01-28 15:59] LABS: Appearance Urine UA CLEAR; Bilirubin Urine UA NEGATIVE (NEGATIVE); Color Urine UA YELLOW; Glucose Urine UA NEGATIVE (Negative); Ketones Urine UA NEGATIVE (NEGATIVE); Leukocyte Esterase Urine UA NEGATIVE (NEGATIVE); Nitrite Urine UA NEGATIVE (Negative); Occult Blood Urine UA NEGATIVE (Negative); Protein Urine UA NEGATIVE (Negative); Specific Gravity Urine UA 1.015 (1.000-1.035); Urobilinogen Urine UA 0.2 E.U./dL (0.2)
[2022-01-28 16:17] LABS: UR Morphine/Opiate cutoff 300 Negative (Negative); Ur Creatinine Normal (Normal); Ur Specific Gravity Normal (Normal); Urine Amphetamines Negative (Negative); Urine Barbiturates Negative (Negative); Urine Benzodiazepines Negative (Negative); Urine Cocaine Negative (Negative); Urine MDMA Negative (Negative); Urine Methadone Negative (Negative); Urine Methamphetamines Negative (Negative); Urine Oxycodone Negative (Negative); Urine Phencyclidine Negative (Negative); Urine Tetrahydrocannabinol Negative (Negative); Urine Tricyclic Antidepressant Negative (Negative); Urine pH Normal (Normal)
[2022-01-28 16:32] LABS: pH Urine UA 6.5 (4.5-8.0)
[2022-01-28 16:35] LABS: Bacteria Urine Few (2-10); Culture Indicated Urine Cult Not Indicated; RBC Urine 0-1/HPF (0-5/HPF); Squamous Epithelial Cell Urine 0-1 /HPF (0-5/HPF); WBC Urine 0-1/HPF (0-5/HPF)
[2022-01-28] MEDS: cephALEXin 250 MG CAPSULE 500 MG PO (16:54)
--- NOTE | 2022-01-28 18:55 | CM.SWNOTE ---
BACTERIOLOGY RESEARCH ASSISTANT/DCP Note Patient is 86 y/o female who presents to the ED via EMS due to concern for Altered mental status and confusion. Per EMS, patient calls 911 due to concern for someone breaking into her house, per EMS no one was present in her home. Patient's PCP was contacted and recommended EMS bring patient to ED. Patient presents as A/O to self and person. Patient presents as [place]. Patient resides alone in [place]. BACTERIOLOGY RESEARCH ASSISTANT calls patient's listed emergency, next of kin and person to notify contacts and leaves VM. BACTERIOLOGY RESEARCH ASSISTANT receives return call from patient's emergency contact Kaye and Jeremi who reside in [place], [place], it is reported that they are related to patient's spouse. It is reported that patient is confused at baseline and often paranoid when someone comes to her home. Jeremi reports that patient does not have local family members but neighbors check on patient often. Jeremi provides phone numbers for patient's kelsey Stoll (Ph. # [phone]), family friend Beverly Varela (Ph. # [phone]), neighbors Aneesh and Anselmo (Ph. # [phone], Anselmo's cell # [phone], Aneesh's cell # [phone]) and patient's neighbors Zan and Nya (Ph. # [phone]) It is reported that patient has been living alone for the last 6 years and has a preference to continue to live at home. Patient's DPOA is her niece Dodie who resides in [facility] (Advance Directive is scanned into patient's EMR). Patient presents with independence with ambulation and feeding self. Jeremi and Kaye report concern for the family to be more involved in her coordination of care, and agree to picker tender patient upon medical clearance. Per ED provider TONE Bowling patient is medically cleared for d/c. Plan: Patient to d/c to home with transportation from family friend and family to f/u with senior living care plan for patient. Esme Gardner, GLOBAL MARKETING OPERATIONS MANAGER
--- NOTE | 2022-02-03 09:00 | PC.NURSE ---
Patient med pack was left in the ER. Nya simmons [facility] is picking them up for the patient today.
== END 2022-01-28 18:47 | disposition home or self-care (01) ==
PROVIDERS: Emergency Medicine; Emergency Provider Nurse Practitioner Critical Care Medicine; PCP Internal Medicine
DX: N30.00 Acute cystitis without hematuria (principal); R41.0 Disorientation, unspecified; I48.91 Unspecified atrial fibrillation; Z79.01 Long term (current) use of anticoagulants; R03.1 Nonspecific low blood-pressure reading
CPT/HCPCS: 36415; 71045; 80053; 80305; 80329; 81001; 82140; 82962; 84443; 85025; 87086; 93005; 93010; 99284; G0480

== ENCOUNTER 2022-07-05 21:35 | Inpatient (IN) | payer MEDICARE, SELFPAY ==
[2022-07-05 21:41] VITALS: BP 111/60; PULSE 70; RESP 16; TEMP 36.7; O2SAT 98
--- NOTE | 2022-07-05 21:53 | ED_ITS ---
HPI - Fall General Chief Complaint: Trauma Stated Complaint: GLF on Blood Thinners Time Seen by Provider: 07/05/22 21:53 Source: EMS Mode of arrival: EMS Limitations: no limitations History of Present Illness HPI Narrative: This is an 87-year-old female on Xarelto with history of AFib, stroke in 2013, dementia who presents to the emergency department via EMS. Patient was found by her neighbor who checks on her nightly, he saw her yesterday she was normal this evening she did not answer the door he went inside and found her in her bed but with significant bruising around her eye and she can the right and states that she is been more sleepy since he found her. Patient's neighbor called to update me. He does note she is on Xarelto. He states they have been trying to get her to a snf facility throughout the summer. She is normally ambulates independently. Patient herself states that she does not remember what happened she does note that she fell. She states she is been getting clumsy your. She can tell me her name, she knows she is in [facility] that she came via EMS and that her birthday was recently and it is June. She does not recall her past medical history, she indicates she is had surgery or interventions for her back and shoulder. Allergies include gabapentin, metoprolol, pregabalin. EMR medication list does not look like it is up-to-date as it has warfarin but her neighbor was very clear she is on Xarelto. She is unable to give additional history. She denies significant pain elsewhere currently. Related Data Home Medications Medication Instructions Recorded Confirmed simvastatin 10 mg tablet (Zocor) 10 mg PO HS ##0 07/23/12 08/07/19 diclofenac sodium 1 % topical gel 1 johnson topical PRN PRN Pain ##0 10/13/17 08/07/19 (Voltaren) trazodone 50 mg tablet 25 mg PO QDAY ##0 10/13/17 08/07/19 alendronate 70 mg tablet 70 mg PO QWEEK 05/19/18 08/07/19 calcium 630 mg PO DAILY 07/27/19 08/07/19 docusate sodium [Stool Softener] 2 each PO DAILY 07/27/19 08/07/19 fluticasone propionate 50 1 spray intranasal DAILY 07/27/19 08/07/19 mcg/actuation nasal spray,suspension (Allergy Relief (fluticasone)) melatonin 3 mg tablet 3 mg PO BEDTIME PRN 07/27/19 08/07/19 psyllium 1 tsp PO DAILY 07/27/19 08/07/19 sertraline 25 mg tablet 25 mg PO DAILY 07/27/19 08/07/19 warfarin 2.5 mg tablet 2.5 mg PO SEEINSTR 09/07/19 09/07/19 warfarin 2.5 mg tablet 5 mg PO DAILY 09/07/19 09/07/19 Previous Rx's Medication Instructions Recorded hydrocortisone 2.5 % topical cream 1 applictn topical BID PRN skin 08/07/19 irritation #28 grams ondansetron 4 mg disintegrating 4 mg PO TID-QID PRN nausea and 01/02/21 tablet vomiting #10 tabs Allergies Allergy/AdvReac Type Severity Reaction Status Date / Time gabapentin [GABAPENTIN] AdvReac Unknown SIDE Verified 09/07/19 13:22 EFFECTS metoprolol [METOPROLOL] AdvReac Unknown SUCCINATE Verified 09/07/19 13:22 - FACIAL FLUSHING pregabalin [From LYRICA] AdvReac Unknown BAD DREAMS Verified 09/07/19 13:22 Latex, Natural Rubber AdvReac Verified 09/07/19 13:22 Review of Systems Review of Systems ROS Unobtainable: All systems reviewed & are unremarkable except as noted in HPI and below Patient History Medical History Arthritis Atrial fibrillation Bruises easily Constipation History of diverticulosis History of stroke History of stroke (~2009) Hypercholesterolemia Hypertension Impaired vision Inguinal hernia Low back pain Lumbar foraminal stenosis Neuropathy of both feet Pain in both hands Pain in joint involving left pelvic region and thigh Rotator cuff impingement syndrome of right shoulder Scoliosis due to degenerative disease of spine in adult patient Seasonal allergies Ulcerative colitis Urinary frequency Surgical History Colonoscopy planned H/O bilateral cataract extraction History of cataract extraction History of total right hip arthroplasty History of total right hip replacement Family History Father Cancer Unknown Cancer Social History household members: none lives independently: Yes housing: house Smoking Status: Former smoker alcohol intake: current Smoking Status: Former smoker alcohol intake frequency: 0-2 drinks per day Substance Use Type: does not use Exam Narrative Exam Narrative: GEN: C-collar prior to arrival Patient appears in mild distress. Cachectic female. Patient is alert, able to tell me her name, she is difficulty with the year but no she is been transported to [facility] and [place] that it is June and that she just had her birthday recently on [birth year] HEAD: Patient has right periorbital ecchymosis, no obvious hematoma posterior scalp, no raccoon/Sheikh sign. NECK: Nontender, painless range of motion, trachea midline Positive for Nexus criteria, there is no midline line tenderness, distracting injury, possible altered mental status-patient has known dementia at baseline, no neuro deficit, recent EtOH. EYES: PERRLA, EOMI, ENT: External inspection normal except for dried blood in the right Valentin, bruising of the right cheek and poor orbital ecchymosis on the right, trachea is midline, TM's are normal no hemotypanum, Nares are clear, no septal hematoma, no dental or oral injury, airway is normal and with normal occlusion, No bony tenderness RESP: Chest is nontender and has symmetric movement, no ecchymosis, breath sounds are normal no crackles, wheezes or rales CVS: Heart sounds are normal, no murmur noted, No JVD. ABG/GI: Nontender, soft, normal bowel sounds, no distention, no organomegaly, pelvic rock is negative NEURO: Oriented AOx3, neuro is grossly intact, sensation and motor is normal all 4 extremities moving, cranial nerves II through XII are intact, GCS is 14 PSYCH: Normal mood and affect SKIN: Intact, warm and dry, no crepitus and without decubitus BACK: No CVA tenderness, no vertebral tenderness, no step-off's, no crepitus EXT: Atraumatic, hips are nontender, no pedal edema, normal color and temperature, normal range of motion of extremities with normal tendon exam with passive range of motion., 2+ pulses in all four extremities Initial Vital Signs Initial Vital Signs: Vital Signs Temperature 98.0 F 07/05/22 21:41 Pulse Rate 70 07/05/22 21:41 Respiratory Rate 16 07/05/22 21:41 Blood Pressure 111/60 07/05/22 21:41 Pulse Oximetry 98 07/05/22 21:41 Oxygen Delivery Method 07/05/22 21:[address] [place] [address] Head Rule Age <16 years old: No Patient on blood thinners: Yes Seizure after injury: No Exclusion: Patient meets exclusion criteria GCS < 15 at 2 hr post trauma: Yes Suspected open or depressed skull fracture: No Two or more episodes of vomiting: No Age greater or equal to 65 years: Yes GCS Danilo coma scale eye opening: Spontaneous Danilo coma scale verbal response: Orientated Danilo coma scale motor response: Obey commands [place] coma scale total score: 15 Nexus Score for C-Spine Focal Neurologic deficit present: No Midline spinal tenderness present: No Altered level of conciousness present: Yes Intoxication present: No Distracting Injury Present: No Nexus Criteria for C-spine: 1 Course Orders Ordered: ED Orders 07/05/22 21:47 CBC Auto Diff [Complete Blood Count AUTO DIFF] Stat CMP [Comprehensive Metabolic Panel] Stat Lipase Stat PTT [Partial Thromboplastin Time] Stat Prothrombin Time INR Stat Troponin & CK Cardiac Panel Stat 07/05/22 21:53 Covid-19 + FLU A/B + RSV - PCR Stat 07/05/22 21:55 CT cervical spine wo con Stat CT head/brain wo con Stat Chest [XR chest 1V] Stat XR pelvis 1-2V Stat EKG-12 Lead Stat 07/05/22 21:56 CT facial bones wo con Stat 07/05/22 22:06 XR tibia fibula RT 2V Stat 07/05/22 23:05 UA Complete [Urinalysis and Microscopic] Stat Urine Culture Stat Discontinued Medications Prothrombin Complex Concent ( Human) 2,000 unit/Miscellaneous 80 mls @ 320.054 mls/hr IV NOW ONE; Protocol Stop: 07/05/22 22:52 Last Infusion: 07/06/22 00:42 Dose: 0 unit/kg/min, 0 mls/hr Documented By: Admin: 07/05/22 23:30 Dose: 3 unit/kg/min, 320.054 mls/hr Documented By: MARK Phytonadione 5 mg/ Sodium (Chloride) 100.5 mls @ 201 mls/hr IV NOW ONE Stop: 07/05/22 22:39 Last Infusion: 07/05/22 23:25 Dose: 201 mls/hr Documented By: Admin: 07/05/22 22:56 Dose: 201 mls/hr Documented By: MARK Consultations Consultation #1: Dr. Marina, radiology. Patient has some dural with mild mass effect, probable subarachnoid, and patient has a small right maxillary fracture extending up to the right lateral orbit. Time: 22:42 Vital Signs Vital signs: Vital Signs - 8 hr 07/05/22 22:24 07/05/22 22:25 07/05/22 22:30 Temperature Pulse Rate 74 Respiratory Rate 20 Blood Pressure 124/61 136/74 Pulse Oximetry 99 07/05/22 22:30 07/05/22 23:00 07/05/22 23:00 Temperature Pulse Rate 76 76 Respiratory Rate 20 20 Blood Pressure 136/73 Pulse Oximetry 95 98 07/05/22 23:30 07/05/22 23:30 07/06/22 00:00 Temperature Pulse Rate 77 Respiratory Rate 20 Blood Pressure 141/65 H 146/68 H Pulse Oximetry 97 07/06/22 00:00 07/06/22 00:30 07/06/22 00:30 Temperature 97.9 F Pulse Rate 72 76 Respiratory Rate 18 20 Blood Pressure 152/68 H Pulse Oximetry 99 98 MDM - Fall Lab Data Result diagrams: 07/05/22 21:47 07/05/22 21:47 Labs: Lab Results 07/05/22 07/05/22 07/05/22 Range/Units 21:47 21:47 21:47 WBC 12.0 H (4.5-11.0) X10^3/uL RBC 3.78 L (4.0-5.2) X10^6/uL Hgb 12.1 (12.0-16.0) g/dL Hct 36.3 (36-46) % MCV 96.1 (80-100) fL MCH 32.0 (26-34) PG MCHC 33.3 (30-36) % RDW 13.5 (11.6-14.8) % Plt Count 204 (150-400) X10^3/uL Neut % (Auto) 78.9 H (50-75) % Lymph % (Auto) 12.1 L (25-40) % Sullivan % (Auto) 8.1 (3-14) % Eos % (Auto) 0.2 L (2-4) % Baso % (Auto) 0.7 (0-2) % Neut # (Auto) 9500 H (7550-1833) /uL Lymph # (Auto) 1500 (3208-5528) /uL Sullivan # (Auto) 1000 H (0-900) /uL Eos # (Auto) 0 (0-450) /uL Baso # (Auto) 100 (0-100) /uL PT 15.5 H (10.1-12.7) SECONDS INR 1.3 (0.9-1.3) APTT 29 (26-36) SECONDS Sodium 137 (137-145) mmol/L Potassium 3.7 (3.4-5.1) mmol/L Chloride 102 (98-107) mmol/L Carbon Dioxide 31 (22-32) mmol/L BUN 22 H (7-17) mg/dL Creatinine 0.49 L (0.52-1.04) mg/dL Estimated GFR > 60 (>60) mL/min BUN/Creatinine Ratio 44.9 H (6-22) Glucose 95 (80-110) mg/dL Calcium 9.1 (8.4-10.2) mg/dL Total Bilirubin 1.2 (0.2-1.3) mg/dL AST 30 (14-36) IU/L ALT 20 (<35) IU/L Alkaline Phosphatase 65 (38-126) U/L Total Creatine Kinase 89 (30-135) U/L CK-MB (CK-2) TNP CK-MB (CK-2) Rel Index TNP Troponin I < 0.012 (0.01-0.034) ng/mL Total Protein 7.4 (6.3-8.2) g/dL Albumin 4.0 (3.5-5.0) g/dL Globulin 3.4 (1.7-4.1) g/dL Albumin/Globulin Ratio 1.2 (1.0-2.8) Lipase 84 (23-300) U/L Urine Color Urine Appearance Urine pH (4.5-8.0) Ur Specific [place] (1.000-1.035) Urine Protein (Negative) Urine Glucose (UA) (Negative) g/dL Urine Ketones (NEGATIVE) Urine Occult Blood (Negative) Urine Nitrate (Negative) Urine Bilirubin (NEGATIVE) Urine Urobilinogen (0.2) E.U./dL Ur Leukocyte Esterase (NEGATIVE) Urine RBC (0-5/HPF) Urine WBC (0-5/HPF) Urine Bacteria (None) Micro UA Comment SARS-CoV-2 (PCR) (Negative) Influenza A (RT-PCR) (NEGATIVE) Influenza B (RT-PCR) (NEGATIVE) RSV (PCR) (Negative) 07/05/22 07/05/22 Range/Units 21:53 23:05 WBC (4.5-11.0) X10^3/uL RBC (4.0-5.2) X10^6/uL Hgb (12.0-16.0) g/dL Hct (36-46) % MCV (80-100) fL MCH (26-34) PG MCHC (30-36) % RDW (11.6-14.8) % Plt Count (150-400) X10^3/uL Neut % (Auto) (50-75) % Lymph % (Auto) (25-40) % Sullivan % (Auto) (3-14) % Eos % (Auto) (2-4) % Baso % (Auto) (0-2) % Neut # (Auto) (1784-1874) /uL Lymph # (Auto) (2228-7913) /uL Sullivan # (Auto) (0-900) /uL Eos # (Auto) (0-450) /uL Baso # (Auto) (0-100) /uL PT (10.1-12.7) SECONDS INR (0.9-1.3) APTT (26-36) SECONDS Sodium (137-145) mmol/L Potassium (3.4-5.1) mmol/L Chloride (98-107) mmol/L Carbon Dioxide (22-32) mmol/L BUN (7-17) mg/dL Creatinine (0.52-1.04) mg/dL Estimated GFR (>60) mL/min BUN/Creatinine Ratio (6-22) Glucose (80-110) mg/dL Calcium (8.4-10.2) mg/dL Total Bilirubin (0.2-1.3) mg/dL AST (14-36) IU/L ALT (<35) IU/L Alkaline Phosphatase (38-126) U/L Total Creatine Kinase (30-135) U/L CK-MB (CK-2) CK-MB (CK-2) Rel Index Troponin I (0.01-0.034) ng/mL Total Protein (6.3-8.2) g/dL Albumin (3.5-5.0) g/dL Globulin (1.7-4.1) g/dL Albumin/Globulin Ratio (1.0-2.8) Lipase (23-300) U/L Urine Color Yellow Urine Appearance Clear Urine pH 7.0 (4.5-8.0) Ur Specific [place] 1.010 (1.000-1.035) Urine Protein Negative (Negative) Urine Glucose (UA) Negative (Negative) g/dL Urine Ketones Trace H (NEGATIVE) Urine Occult Blood 3+ H (Negative) Urine Nitrate Negative (Negative) Urine Bilirubin Negative (NEGATIVE) Urine Urobilinogen 0.2 (0.2) E.U./dL Ur Leukocyte Esterase Negative (NEGATIVE) Urine RBC 10-30/hpf H (0-5/HPF) Urine WBC None seen (0-5/HPF) Urine Bacteria None seen (None) Micro UA Comment * SARS-CoV-2 (PCR) Negative (Negative) Influenza A (RT-PCR) Flu a negative (NEGATIVE) Influenza B (RT-PCR) Flu b negative (NEGATIVE) RSV (PCR) Negative (Negative) Urine Dip Bedside Urine Glucose Negative Bedside Urine Bilirubin - Negative Bedside Urine Ketone - Negative Bedside Urine Occult Blood +++ Bedside Urine Protein - Negative Bedside Urine Urobilinogen - Negative Bedside Urine Nitrite - Negative Bedside Urine Leukocytes - Negative Esterase Imaging Data CT scan - head: Radiologist's Impression: [address] [address] [address] Scan Report Signed Patient: Deven Rodriguez MR#: [id number] : 1935 Acct:[id number] Age/Sex: 87 / F Date of Service: 07/05/22 Loc: ED Accession Number: [id number] ?? Procedure: CT head/brain wo con Ordering Provider: Supriya Johnson D.O. PROCEDURE:? CT HEAD/BRAIN WO CON ? INDICATIONS:? fall, facial bruising, dementia ? TECHNIQUE:? Noncontrast 4.5 mm thick angled axial sections acquired from the foramen magnum to the vertex, with coronal and sagittal reformats.? For radiation dose reduction, the following was used:? automated exposure control, adjustment of mA and/or kV according to patient size.? ? COMPARISON:? [facility], CT, CT HEAD/BRAIN WO CON, 07/02/2020, 16:26.? [facility], CT, HEAD WITHOUT CONTRAST, 03/04/2013, 16:01. ? FINDINGS:? Image quality:? Excellent.? ? CSF spaces:? Basal cisterns are patent.? No extra-axial fluid collections.? The ventricles are symmetric in size and shape.? ? Brain:? No left-sided intracranial bleeds or masses but there is a right-sided acute subdural hemorrhage that measures up to 1 cm in maximal thickness over almost the entirety of the convexity of the right cerebrum, producing only mild effacement of the overlying cortical sulci.? There is a small subarachnoid hemorrhage in a sulcus at the posterior right occipital region, seen on series 2, image 19..? There is cerebral volume loss for age, with resultant ventricular and sulcal prominence.? There are periventricular and deep white matter chronic small vessel ischemic changes.? There is intracranial internal carotid artery atherosclerosis.? ? Skull and face:? Calvarium and visualized facial bones appear intact, without s uspicious lesions.? ? Sinuses:? Visualized sinuses and mastoids are clear except at the right maxill meggan sinus which is subtotally opacified associated with a hematoma within, in this patient with a anterior and lateral wall maxillary sinus fracture on the right with an additional extension of the fractures into the lateral wall of the right orbit, nondisplaced.? ? IMPRESSION:? Moderately large right-sided acute subdural hematoma over much of the convexity of the right cerebrum.? A small focus of subarachnoid hemorrhage within a sulcus more posteriorly involving the right occipital lobe is associated, but brain parenchymal hemorrhage is not seen. ? Additionally, there are fractures involving the lateral wall of the maxillary sinus and the right orbit, and also of the anterior wall of the right maxillary sinus.? Secondary hematoma is present subtotally filling that sinus cavity. ? ? Dictated by: Yovani Marina M.D. on 07/05/2022 at 22:34 ? ? Approved by: Yovani Marina M.D. on 07/05/2022 at 22:41?? CT - cervical spine: Radiologist's Impression: [address] [address] [address] Scan Report Signed Patient: Deven Rodriguez MR#: [id number] : 1935 Acct:[id number] Age/Sex: 87 / F Date of Service: 07/05/22 Loc: ED Accession Number: [id number] ?? Procedure: CT cervical spine wo con Ordering Provider: Supriya Johnson D.O. PROCEDURE:? CT CERVICAL SPINE WO CON ? INDICATIONS:? fall, facial bruising, dementia ? TECHNIQUE:? Noncontrast 3 mm thick sections acquired from the skull base to the T4 level.? Sagittal and coronal reformats were then constructed.? For radiation dose reduction, the following was used:? automated exposure control, adjustment of mA and/or kV according to patient size.? ? COMPARISON:? [facility], CT, CT HEAD/BRAIN WO CON, 07/05/2022, 22:02.? [facility], CT, C-SPINE WITHOUT CONTRAST, 03/04/2013, 18:51. ? FINDINGS:? Image quality:? Excellent.? ? Bones:? No fractures or dislocations.? Visualized superior ribs are intact.? ? Soft tissues:? Prevertebral soft tissues are normal in thickness.? No paravertebral hematomas.? No apical pneumothoraces.? Previously documented moderately large subdural hematoma on the right can be seen at the right temporal fossa.? This has not definitely changed considering differences in scan angulation and patient positioning. ? ? IMPRESSION:? No osseous trauma or traumatic subluxation involving the cervical spine.? Again visualized is a moderately large right-sided subdural acute hematoma. ? Dictated by: Yovani Marina M.D. on 07/05/2022 at 22:41 ? ? Approved by: Yovani Marina M.D. on 07/05/2022 at 22:46?? CT facial bones: Radiologist's Impression: Close Tibia/Fibula X-Ray (Signed) Yovani Marina - 07/05/[address] (Signed) Yovani Marina - 07/05/22 Pelvis X-Ray (Signed) Yovani Marina - 07/05/[address] (Signed) Yovani Marina - 07/05/22 Chest X-Ray (Signed) Yovani Marina - 07/05/[address] (Signed) Yovani Marina - 07/05/22 Chest X-Ray (Signed) Agatha Rogel - 01/28/22 DEXA Result 08/16/21 DEXA Result 08/16/21 Bone Densitometry 08/16/21 Abdomen Ultrasound (Signed) Marcy Juarez - 05/20/21 Abdomen/Pelvis CT (Signed) Yovani Marina - 01/02/21 Abdomen X-Ray (Signed) Marcy Juarez - 01/02/21 Brain MRI (Signed) Micheal Rosasse - 11/08/[address] (Signed) Sascha Morfin - 07/02/20 Abdomen/Pelvis CT (Signed) Yovani Marina - 05/29/20 Mammogram Screening (Signed) Prabhakar Lane - 04/07/20 Echocardiogram Ultrasound (Signed) Yobany Stephens - 01/25/20 Shoulder X-Ray (Signed) Yovani Marina - 09/07/19 Bone Densitometry 07/15/19 Chest X-Ray (Signed) DeenaJessicaconnie - 07/07/19 Abdomen/Pelvis CT (Signed) Asim Keyes - 04/12/19 Mammogram Screening (Signed) Josafat Rodriguez - 10/11/18 Abdomen/Pelvis CT (Signed) Jorge Bauer - 05/25/18 Lumbar Spine X-Ray (Signed) Sushant Mayberry - 03/17/18 Telemetry Strips 02/02/18 Outside EKG 10/20/17 Launch?[place] [address] CT Scan Report Signed Patient: Deven Rodriguez MR#: [id number] : 1935 Acct:[id number] Age/Sex: 87 / F Date of Service: 07/05/22 Loc: ED Accession Number: [id number] ?? Procedure: CT facial bones wo con Ordering Provider: Supriya Johnson D.O. PROCEDURE:? CT FACIAL BONES WO CON ? INDICATIONS:? fall, unknown mechanism, dementia found in bed. facial bruis ? TECHNIQUE:? Noncontrast 2.5 mm thick axial images acquired from the mandible through the frontal sinuses, with coronal and sagittal reformatting.? For radiation dose reduction, the following was used:? automated exposure control, adjustment of mA and/or kV a ccording to patient size.? ? COMPARISON:? None. ? FINDINGS:? Image quality:? Excellent.? ? Bones and teeth:? Orbital hanna are intact on the left but there is a lateral wall orbit fracture, minimally impacted, on the right.? The floor of the right orbit also appears mildly impacted inferiorly, associated with additional maxillary sinus fractures discussed below.? Sinus hanna on the left show no fracture or deformity mildly comminuted moderately and also the lateral wall.? impacted fracture involving the anterior wall of the maxillary sinus.? Nasal bones and septum are intact.? Visualized portions of the mandible demonstrate no fractures or subluxation.? Zygomatic arches are intact.? Pterygoid plates are intact.? Visualized portions of the skull base and auditory canals are intact.? ? Sinuses:? Paranasal sinuses are aerated, without fluid levels, mucosal thickening, or mucoceles.? Mastoid air cells are aerated.? ? Soft tissues:? No edema, masses, or fluid collections.? No enlarged lymph nodes.? No soft tissue lacerations or debris.? ? Vascular:? Visualized vascular structures appear normal in the absence of contrast.? Bony vascular foramina and canals are intact.? ? IMPRESSION:? Significant right facial trauma has occurred with both lateral and inferior wall right orbital fractures, and fractures that are impacted to a greater degree at the anterior wall of the right maxillary sinus and also the lateral wall of the right maxillary sinus.? A displaced tripod fracture is not identified on the right. ? ? Dictated by: Yovani Marina M.D. on 07/05/2022 at 23:06 ? ? Approved by: Yovani Marina M.D. on 07/05/2022 at 23:11?? Chest x-ray: Radiologist's Impression: [address] [address] XRay Report Signed Patient: Deven Rodriguez MR#: [id number] : 1935 Acct:[id number] Age/Sex: 87 / F Date of Service: 07/05/22 Loc: ED Accession Number: [id number] ?? Procedure: XR chest 1V Ordering Provider: Supriya Johnson D.O. PROCEDURE:? XR CHEST 1V ? INDICATIONS:? fall, facial bruising, dementia ? TECHNIQUE:? One view of the chest was acquired.? ? COMPARISON:? [facility], XR CHEST 1V, 01/28/2022, 14:23.? [facility], XR CHEST 2V, 07/07/2019, 14:19. ? FINDINGS:? ? Surgical changes and devices:? None.? ? Lungs and pleura:? Lungs are mildly abnormal with a chronic interstitial prominence.? No pleural effusions or pneumothorax.? ? Mediastinum:? Mediastinal contours appear normal.? Heart size is slightly enlarged, chronically..? ? Bones and chest wall:? No suspicious bony lesions.? Overlying soft tissues appear unremarkable.? ? IMPRESSION:? Chronic mild cardiomegaly and interstitial prominence but no trauma or pneumonia seen. ? ? Dictated by: Yovani Marina M.D. on 07/05/2022 at 22:47 ? ? Approved by: Yovani Marina M.D. on 07/05/2022 at 22:48?? pelvic xray: Radiologist's Impression: [place] [address] XRay Report Signed Patient: Deven Rodriguez MR#: [id number] : 1935 Acct:[id number] Age/Sex: 87 / F Date of Service: 07/05/22 Loc: ED Accession Number: [id number] ?? Procedure: XR pelvis 1-2V Ordering Provider: Supriya Johnson D.O. PROCEDURE:? XR PELVIS 1-2V ? INDICATIONS:? fall, facial bruising, dementia ? TECHNIQUE:? To view(s) of the pelvis acquired.? ? COMPARISON:? [facility], , PELVIS WITH BILATERAL HIPS, 11/30/2008, 16:21. ? FINDINGS:? ? Bones:? No fractures or dislocations.? No suspicious bony lesions.? 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 ? Soft tissues:? Visualized bowel gas pattern is normal.? No suspicious soft tissue calcifications.? ? IMPRESSION:? No acute trauma found. ? ? Dictated by: Yovani Marina M.D. on 07/05/2022 at 22:46 ? ? Approved by: Yovani Marina M.D. on 07/05/2022 at 22:47?? ECG Data Attestation: I personally reviewed and interpreted this ECG as follows: Prior ECG tracings: available for review Interpretation: AFib rate of 71 QRS is 74, QTC 449. No acute ST changes appreciated. N onspecific. Patient has prior from 01/28/2022. T-waves appear flattened V4 5 but no other dynamic changes appreciated. MDM Narrative Medical decision making narrative: 87-year-old female anticoagulated on Xarelto for atrial fibrillation with unknown mechanism with clear injury to her face. Patient has dementia is unsure exactly what happened, CT imaging, x-ray of chest and pelvis as well as lab work obtained to evaluate for potential causes although she is quite frail and could easily have fallen. Patient's labs so far down from major abnormalities, COVID/RSV influenza pending. Urine has not been obtained but patient does appear to have some dural, possible subarachnoid this small right maxillary fracture into the orbit. There is mild mass effect. Patient is on Xarelto, was given vitamin K and Kcentra is not complete reversal but we do not have the reversal agent for Xarelto while trying to find a POLST form and reaching out to family. Called [phone], Jeremi Jac left voicemail. Called [phone] and states number dialed no answering. Called [phone] left voicemail. All called approximately [phone]. Patient has a POLST form in EMR that says do not resuscitate states DNR/DNI and comfort focused care signed by her primary care team on February of 2022. Jeremi Nathan called back, Padmaja Nathan has resigned as DPOA as she has become disabled and unable to fill her requirements for the position they recommend talking to Dodie they did make sure to give us the number [phone] for Dodie current DPOA which was called, voicemail left with no callback so far. They note that patient's past paperwork has expressed that she does not want aggressive interventions. We were able to find a POLST form, that indicates patient is more comfort measures we will not pursue aggressive treatment at this time still trying to reach out to patient's family Dodie Umaña who is her current DPOA, nursing staff did speak to the Nathan family. Myself as well as nursing has left multiple voice mails. Contacted patient's primary care team for admission for subdural. Spoke with Dr. Méndez, he accepts. Updated him on current changes with DPOA and awaiting to hear back from [place] but current POLST form in place. Will see patient this morning. Critical Care Time Critical Care Time Critical Care Time: Yes Total Critical Care Time: 25 Attestation: The high probability of a clinically significant, sudden or life threatening deterioration of the [neuro] system(s) required my full and direct attention, intervention and personal management. The aggregate critical care time was [] minutes. This time is in addition to time spent performing reported procedures but includes the following: [x] Data Review and interpretation [x] Patient assessment and monitoring of vital signs [x] Documentation [x] Medication orders and management Discharge Plan Departure Patient Disposition: Admitted As Inpatient Clinical Impression: Acute subdural hematoma, Maxillary fracture, Subarachnoid hemorrhage, Closed fracture of orbital wall Admit Date/Time: 07/06/22 00:49 Admit Provider: Sylvester Méndez
--- NOTE | 2022-07-05 21:55 | DI.RAD.S_ITS ---
PROCEDURE: XR CHEST 1V INDICATIONS: fall, facial bruising, dementia TECHNIQUE: One view of the chest was acquired. COMPARISON: [facility], CR, XR CHEST 1V, 01/28/2022, 14:23. [facility], CR, XR CHEST 2V, 07/07/2019, 14:19. FINDINGS: Surgical changes and devices: None. Lungs and pleura: Lungs are mildly abnormal with a chronic interstitial prominence. No pleural effusions or pneumothorax. Mediastinum: Mediastinal contours appear normal. Heart size is slightly enlarged, chronically.. Bones and chest wall: No suspicious bony lesions. Overlying soft tissues appear unremarkable. IMPRESSION: Chronic mild cardiomegaly and interstitial prominence but no trauma or pneumonia seen. Dictated by: Yovani Marina M.D. on 07/05/2022 at 22:47 Approved by: Yovani Marina M.D. on 07/05/2022 at 22:48
--- NOTE | 2022-07-05 21:55 | DI.CT.S_ITS ---
PROCEDURE: CT HEAD/BRAIN WO CON INDICATIONS: fall, facial bruising, dementia TECHNIQUE: Noncontrast 4.5 mm thick angled axial sections acquired from the foramen magnum to the vertex, with coronal and sagittal reformats. For radiation dose reduction, the following was used: automated exposure control, adjustment of mA and/or kV according to patient size. COMPARISON: [facility], CT, CT HEAD/BRAIN WO CON, 07/02/2020, 16:26. [facility], CT, HEAD WITHOUT CONTRAST, 03/04/2013, 16:01. FINDINGS: Image quality: Excellent. CSF spaces: Basal cisterns are patent. No extra-axial fluid collections. The ventricles are symmetric in size and shape. Brain: No left-sided intracranial bleeds or masses but there is a right-sided acute subdural hemorrhage that measures up to 1 cm in maximal thickness over almost the entirety of the convexity of the right cerebrum, producing only mild effacement of the overlying cortical sulci. There is a small subarachnoid hemorrhage in a sulcus at the posterior right occipital region, seen on series 2, image 19.. There is cerebral volume loss for age, with resultant ventricular and sulcal prominence. There are periventricular and deep white matter chronic small vessel ischemic changes. There is intracranial internal carotid artery atherosclerosis. Skull and face: Calvarium and visualized facial bones appear intact, without suspicious lesions. Sinuses: Visualized sinuses and mastoids are clear except at the right maxillary sinus which is subtotally opacified associated with a hematoma within, in this patient with a anterior and lateral wall maxillary sinus fracture on the right with an additional extension of the fractures into the lateral wall of the right orbit, nondisplaced. IMPRESSION: Moderately large right-sided acute subdural hematoma over much of the convexity of the right cerebrum. A small focus of subarachnoid hemorrhage within a sulcus more posteriorly involving the right occipital lobe is associated, but brain parenchymal hemorrhage is not seen. Additionally, there are fractures involving the lateral wall of the maxillary sinus and the right orbit, and also of the anterior wall of the right maxillary sinus. Secondary hematoma is present subtotally filling that sinus cavity. Dictated by: Yovani Marina M.D. on 07/05/2022 at 22:34 Approved by: Yovani Marina M.D. on 07/05/2022 at 22:41
--- NOTE | 2022-07-05 21:55 | DI.CT.S_ITS ---
PROCEDURE: CT CERVICAL SPINE WO CON INDICATIONS: fall, facial bruising, dementia TECHNIQUE: Noncontrast 3 mm thick sections acquired from the skull base to the T4 level. Sagittal and coronal reformats were then constructed. For radiation dose reduction, the following was used: automated exposure control, adjustment of mA and/or kV according to patient size. COMPARISON: [facility], CT, CT HEAD/BRAIN WO CON, 07/05/2022, 22:02. [facility], CT, C-SPINE WITHOUT CONTRAST, 03/04/2013, 18:51. FINDINGS: Image quality: Excellent. Bones: No fractures or dislocations. Visualized superior ribs are intact. Soft tissues: Prevertebral soft tissues are normal in thickness. No paravertebral hematomas. No apical pneumothoraces. Previously documented moderately large subdural hematoma on the right can be seen at the right temporal fossa. This has not definitely changed considering differences in scan angulation and patient positioning. IMPRESSION: No osseous trauma or traumatic subluxation involving the cervical spine. Again visualized is a moderately large right-sided subdural acute hematoma. Dictated by: Yovani Marina M.D. on 07/05/2022 at 22:41 Approved by: Yovani Marina M.D. on 07/05/2022 at 22:46
--- NOTE | 2022-07-05 21:55 | DI.RAD.S_ITS ---
PROCEDURE: XR PELVIS 1-2V INDICATIONS: fall, facial bruising, dementia TECHNIQUE: To view(s) of the pelvis acquired. COMPARISON: [facility], , PELVIS WITH BILATERAL HIPS, 11/30/2008, 16:21. FINDINGS: Bones: No fractures or dislocations. No suspicious bony lesions. 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 Soft tissues: Visualized bowel gas pattern is normal. No suspicious soft tissue calcifications. IMPRESSION: No acute trauma found. Dictated by: Yovani Marina M.D. on 07/05/2022 at 22:46 Approved by: Yovani Marina M.D. on 07/05/2022 at 22:47
--- NOTE | 2022-07-05 21:56 | DI.CT.S_ITS ---
PROCEDURE: CT FACIAL BONES WO CON INDICATIONS: fall, unknown mechanism, dementia found in bed. facial bruis TECHNIQUE: Noncontrast 2.5 mm thick axial images acquired from the mandible through the frontal sinuses, with coronal and sagittal reformatting. For radiation dose reduction, the following was used: automated exposure control, adjustment of mA and/or kV according to patient size. COMPARISON: None. FINDINGS: Image quality: Excellent. Bones and teeth: Orbital hanna are intact on the left but there is a lateral wall orbit fracture, minimally impacted, on the right. The floor of the right orbit also appears mildly impacted inferiorly, associated with additional maxillary sinus fractures discussed below. Sinus hanna on the left show no fracture or deformity mildly comminuted moderately and also the lateral wall. impacted fracture involving the anterior wall of the maxillary sinus. Nasal bones and septum are intact. Visualized portions of the mandible demonstrate no fractures or subluxation. Zygomatic arches are intact. Pterygoid plates are intact. Visualized portions of the skull base and auditory canals are intact. Sinuses: Paranasal sinuses are aerated, without fluid levels, mucosal thickening, or mucoceles. Mastoid air cells are aerated. Soft tissues: No edema, masses, or fluid collections. No enlarged lymph nodes. No soft tissue lacerations or debris. Vascular: Visualized vascular structures appear normal in the absence of contrast. Bony vascular foramina and canals are intact. IMPRESSION: Significant right facial trauma has occurred with both lateral and inferior wall right orbital fractures, and fractures that are impacted to a greater degree at the anterior wall of the right maxillary sinus and also the lateral wall of the right maxillary sinus. A displaced tripod fracture is not identified on the right. Dictated by: Yovani Marina M.D. on 07/05/2022 at 23:06 Approved by: Yovani Marina M.D. on 07/05/2022 at 23:11
[2022-07-05 22:06] LABS: Add Manual Diff / Slide Review NO; Basophils Absolute Auto 100 /uL (0-100); Basophils Percent Auto 0.7 % (0-2); Eosinophils Absolute Auto 0 /uL (0-450); Eosinophils Percent Auto 0.2 % (2-4); Hematocrit 36.3 % (36-46); Hemoglobin 12.1 g/dL (12.0-16.0); INR 1.3 (0.9-1.3); Lymphocytes Absolute Auto 1500 /uL (1100-4500); Lymphocytes Percent Auto 12.1 % (25-40); Mean Corpuscular HGB Conc 33.3 % (30-36); Mean Corpuscular Volume 96.1 fL (80-100); Monocytes Absolute Auto 1000 /uL (0-900); Monocytes Percent Auto 8.1 % (3-14); Neutrophils Absolute Auto 9500 /uL (1500-7000); Neutrophils Percent Auto 78.9 % (50-75); Platelet Count 204 X10^3/uL (150-400); Prothrombin Time 15.5 SECONDS (10.1-12.7); Red Blood Cell Count 3.78 X10^6/uL (4.0-5.2); Red Cell Distribution Width 13.5 % (11.6-14.8)
--- NOTE | 2022-07-05 22:06 | DI.RAD.S_ITS ---
PROCEDURE: XR TIBIA FUBULA RT 2V INDICATIONS: right bruising prox fibula TECHNIQUE: 2 views of the tibia and fibula were acquired. COMPARISON: None. FINDINGS: Bones: No fractures or dislocations. No suspicious bony lesions. Soft tissues: No suspicious soft tissue calcifications or masses. IMPRESSION: Normal for age, source of current pain after trauma symptoms is not seen. Dictated by: Yovani Marina M.D. on 07/05/2022 at 22:48 Approved by: Yovani Marina M.D. on 07/05/2022 at 22:48
[2022-07-05 22:09] LABS: PTT Partial Thromboplastin Tim 29 SECONDS (26-36)
[2022-07-05 22:10] LABS: Alanine Aminotransferase 20 IU/L (<35); Albumin Globulin Ratio 1.2 (1.0-2.8); Alkaline Phosphatase 65 U/L (38-126); Aspartate Aminotransferase 30 IU/L (14-36); BUN Creatinine Ratio 44.9 (6-22); Bilirubin Total 1.2 mg/dL (0.2-1.3); Blood Urea Nitrogen 22 mg/dL (7-17); Calcium 9.1 mg/dL (8.4-10.2); Carbon Dioxide 31 mmol/L (22-32); Chloride 102 mmol/L (98-107); Creatine Kinase 89 U/L (30-135); Estimated Glomerular Filt Rate > 60 mL/min (>60); Globulin 3.4 g/dL (1.7-4.1); Glucose 95 mg/dL (80-110); HEMOLYSIS < 15 (0-50); Lipase 84 U/L (23-300); Potassium 3.7 mmol/L (3.4-5.1); Sodium 137 mmol/L (137-145); Total Protein 7.4 g/dL (6.3-8.2)
[2022-07-05 22:22] LABS: Troponin I < 0.012 ng/mL (0.01-0.034)
[2022-07-05 22:24] VITALS: BP 124/61
[2022-07-05 22:25] VITALS: PULSE 74; RESP 20; O2SAT 99
[2022-07-05 22:30] VITALS: BP 136/74; PULSE 76; RESP 20; O2SAT 95
[2022-07-05 22:55] LABS: Influenza A - CEPHEID Flu A NEGATIVE (NEGATIVE); Influenza B - CEPHEID Flu B NEGATIVE (NEGATIVE); Respiratory Syncytial Virus Negative (Negative)
[2022-07-05 22:56] LABS: COVID-19 CEPHEID 4-PLEX PCR Negative (Negative)
[2022-07-05] MEDS: PHYTONADIONE (VIT K1) 5 MG in SODIUM CHLORIDE 0.9% 100 ML 201 MG IV (22:56)
[2022-07-05 23:00] VITALS: BP 136/73; PULSE 76; RESP 20; O2SAT 98
[2022-07-05 23:16] LABS: Appearance Urine UA CLEAR; Bilirubin Urine UA NEGATIVE (NEGATIVE); Color Urine UA YELLOW; Glucose Urine UA NEGATIVE (Negative); Ketones Urine UA TRACE (NEGATIVE); Leukocyte Esterase Urine UA NEGATIVE (NEGATIVE); Nitrite Urine UA NEGATIVE (Negative); Occult Blood Urine UA 3+ (Negative); Protein Urine UA NEGATIVE (Negative); Urobilinogen Urine UA 0.2 E.U./dL (0.2)
--- NOTE | 2022-07-05 23:16 | PC.NURSE ---
Addendum entered by Hortencia Dunlap R.N. 07/06/22 01:28: Spoke to Dodie Thomas, DPOA for patient at this time. Stated that is the patient's DPOA and understands that the patient has had an injury to her face and brain that will require her to potentially act in her role. Notified Coordinator that contact has been made with DPOA for care planning purposes. Original Note: Called contact Kaye Nathan based on DPOA paperwork scanned 02/2022 and was informed that she had resigned from that position and would not be able to assist with decision making regarding the patient's care and wishes. Kaye encouraged this RN to contact other DPOA for assistance. Provider notified.
[2022-07-05 23:26] LABS: Bacteria Urine None Seen; RBC Urine 10-30/HPF (0-5/HPF); WBC Urine None Seen (0-5/HPF)
[2022-07-05 23:30] VITALS: BP 141/65; PULSE 77; RESP 20; O2SAT 97
[2022-07-05] MEDS: PROTHROMBIN CPLX(PCC)4FACT 2,000 UNIT in ISOOSMOTIC VEHICLE 0 ML 320.054 UNIT IV (23:30)
[2022-07-06] VITALS (8 sets, daily range): BP systolic 114–152; BP diastolic 60–77; PULSE 72–99; RESP 18–23; TEMP 36.6–37.6; O2SAT 96–99; BMI 13.4
--- NOTE | 2022-07-06 11:24 | PM.HP.1 ---
History of Present Illness History of Present Illness Date Patient Seen: 07/06/22 Time Patient Seen: 11:25 Chief complaint: GLF on Blood Thinners Narrative: Pt lives alone found down s/p GLF with contusions on face incoherent - evaluation in ED found small SDH with some midline shift, as well as a minimally displaced R mandibular fracture. She is on chronic anticoagulation for afib and does have diagnosis of dementia. family has been getting [facility] she is just waiting for a bed to be available. Niece Dodie is POA, she is comfort care. On exam she is easily rousable but falls asleep again seems confused about what is going on. Patient History Medical History Arthritis Atrial fibrillation Bruises easily Constipation History of diverticulosis History of stroke History of stroke (~2009) Hypercholesterolemia Hypertension Impaired vision Inguinal hernia Low back pain Lumbar foraminal stenosis Neuropathy of both feet Pain in both hands Pain in joint involving left pelvic region and thigh Rotator cuff impingement syndrome of right shoulder Scoliosis due to degenerative disease of spine in adult patient Seasonal allergies Ulcerative colitis Urinary frequency Surgical History Colonoscopy planned H/O bilateral cataract extraction History of cataract extraction History of total right hip arthroplasty History of total right hip replacement Family & Social History Family History Father Cancer Unknown Cancer Social History: household members none Prior Living Arrangements House lives independently Yes Safety & Behavioral: Feels Safe in Current Yes Environment Been Physically Hurt or No Threatened By a Person Tobacco & Substance use: Tobacco type cigarettes Smoking Status Former smoker alcohol intake current alcohol intake frequency 0-2 drinks per day Substance Use Type does not use Meds Home Medications and Allergies Home Medications Medication Instructions Recorded Confirmed Type simvastatin 10 mg tablet (Zocor) 10 mg PO HS ##0 07/23/12 08/07/19 History diclofenac sodium 1 % topical gel 1 johnson topical PRN PRN Pain ##0 10/13/17 08/07/19 History (Voltaren) trazodone 50 mg tablet 25 mg PO QDAY ##0 10/13/17 08/07/19 History alendronate 70 mg tablet 70 mg PO QWEEK 05/19/18 08/07/19 History calcium 630 mg PO DAILY 07/27/19 08/07/19 History docusate sodium [Stool Softener] 2 each PO DAILY 07/27/19 08/07/19 History fluticasone propionate 50 1 spray intranasal DAILY 07/27/19 08/07/19 History mcg/actuation nasal spray,suspension (Allergy Relief (fluticasone)) melatonin 3 mg tablet 3 mg PO BEDTIME PRN 07/27/19 08/07/19 History psyllium 1 tsp PO DAILY 07/27/19 08/07/19 History sertraline 25 mg tablet 25 mg PO DAILY 07/27/19 08/07/19 History hydrocortisone 2.5 % topical cream 1 applictn topical BID PRN skin 08/07/19 08/07/19 Rx irritation #28 grams warfarin 2.5 mg tablet 2.5 mg PO SEEINSTR 09/07/19 09/07/19 History warfarin 2.5 mg tablet 5 mg PO DAILY 09/07/19 09/07/19 History ondansetron 4 mg disintegrating 4 mg PO TID-QID PRN nausea and 01/02/21 Rx tablet vomiting #10 tabs Allergies Allergy/AdvReac Type Severity Reaction Status Date / Time gabapentin [GABAPENTIN] AdvReac Unknown SIDE Verified 09/07/19 13:22 EFFECTS metoprolol [METOPROLOL] AdvReac Unknown SUCCINATE Verified 09/07/19 13:22 - FACIAL FLUSHING pregabalin [From LYRICA] AdvReac Unknown BAD DREAMS Verified 09/07/19 13:22 Latex, Natural Rubber AdvReac Verified 09/07/19 13:22 Review of Systems Review of Systems Narrative: Unable to obtain ROS d/t mental status Exam Vital Signs (past 8 hours): - 07/06/22 08:59 Temperature 99.1 F Pulse Rate 99 H Respiratory Rate 19 Blood Pressure 114/67 Pulse Oximetry 96 Oxygen Delivery Method Room Air Narrative Exam Narrative: slender elder laying in bed alseep easily rousable Const Nutritional Appearance: thin HENMT Other: contusions on R forehead and lower jaw. Eyes Other: consensually pinprick bialt Resp Other: clear bilaterally moving air well Cardio Other: regular rate irregular rhythm GI Other: soft nontender Neuro General: moves all extremities Extrem General: full ROM, no pedal edema and other (bruise on R lateral knee) Objective Labs Result Diagrams: 07/05/22 21:47 07/05/22 21:47 Labs: Laboratory Results - last 24 hr 07/05/22 07/05/22 07/05/22 21:47 21:47 21:47 WBC 12.0 H RBC 3.78 L Hgb 12.1 Hct 36.3 MCV 96.1 MCH 32.0 MCHC 33.3 RDW 13.5 Plt Count 204 Neut % (Auto) 78.9 H Lymph % (Auto) 12.1 L Sullivan % (Auto) 8.1 Eos % (Auto) 0.2 L Baso % (Auto) 0.7 Neut # (Auto) 9500 H Lymph # (Auto) 1500 Sullivan # (Auto) 1000 H Eos # (Auto) 0 Baso # (Auto) 100 PT 15.5 H INR 1.3 APTT 29 Sodium 137 Potassium 3.7 Chloride 102 Carbon Dioxide 31 BUN 22 H Creatinine 0.49 L Estimated GFR > 60 BUN/Creatinine Ratio 44.9 H Glucose 95 Calcium 9.1 Total Bilirubin 1.2 AST 30 ALT 20 Alkaline Phosphatase 65 Total Creatine Kinase 89 CK-MB (CK-2) TNP CK-MB (CK-2) Rel Index TNP Troponin I < 0.012 Total Protein 7.4 Albumin 4.0 Globulin 3.4 Albumin/Globulin Ratio 1.2 Lipase 84 Urine Color Urine Appearance Urine pH Ur Specific Stuart Urine Protein Urine Glucose (UA) Urine Ketones Urine Occult Blood Urine Nitrate Urine Bilirubin Urine Urobilinogen Ur Leukocyte Esterase Urine RBC Urine WBC Urine Bacteria Micro UA Comment Nasal Screen MRSA (PCR) SARS-CoV-2 (PCR) Influenza A (RT-PCR) Influenza B (RT-PCR) RSV (PCR) 07/05/22 07/05/22 07/06/22 21:53 23:05 02:26 WBC RBC Hgb Hct MCV MCH MCHC RDW Plt Count Neut % (Auto) Lymph % (Auto) Sullivan % (Auto) Eos % (Auto) Baso % (Auto) Neut # (Auto) Lymph # (Auto) Sullivan # (Auto) Eos # (Auto) Baso # (Auto) PT INR APTT Sodium Potassium Chloride Carbon Dioxide BUN Creatinine Estimated GFR BUN/Creatinine Ratio Glucose Calcium Total Bilirubin AST ALT Alkaline Phosphatase Total Creatine Kinase CK-MB (CK-2) CK-MB (CK-2) Rel Index Troponin I Total Protein Albumin Globulin Albumin/Globulin Ratio Lipase Urine Color Yellow Urine Appearance Clear Urine pH 7.0 Ur Specific Stuart 1.010 Urine Protein Negative Urine Glucose (UA) Negative Urine Ketones Trace H Urine Occult Blood 3+ H Urine Nitrate Negative Urine Bilirubin Negative Urine Urobilinogen 0.2 Ur Leukocyte Esterase Negative Urine RBC 10-30/hpf H Urine WBC None seen Urine Bacteria None seen Micro UA Comment * Nasal Screen MRSA (PCR) Negative for mrsa SARS-CoV-2 (PCR) Negative Influenza A (RT-PCR) Flu a negative Influenza B (RT-PCR) Flu b negative RSV (PCR) Negative Assessment & Plan Assessment & Plan narrative: #s/p GLF #R subdural hemorrhage with midline shift #R multiple facial fractures Comfort care measures. OK to attempt some liquid diet feeds see how she does - OT eval for feeding ordered Spoke with Dodie HENDRICKS who says she might be ok with a feeding tube if necessary Continue to monitor: DNR status confirmed #afib hold anticoagulation. continue SCDs. continue diltiazem. #MDD continue home sertraline Dispo: OT THAD ballard exploring placement options MDM: Fabrizio [phone] Diet: clears DVT: SCDs only code: DNR - comfort measures Time spent on this admission 55min including time at bedside Time Spent With Patient Critical Care time: I spent a total of [] minutes of critical care time on this patient's care today; this time is exclusive of procedural time.
--- NOTE | 2022-07-06 16:42 | CM.DANOTE ---
Initial Discharge Assessment Note: Case reviewed, spoke with *FORD Dodie Umaña ([phone]), niece*. Introduced self and role. 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 Diagnosed with facial fractures, ecchymosis to right side of face. Patient somnolent most of day. Lives alone in [place] and has close friends and neighbors in her neighborhood who help and check on her. Her neighbor, retired surgeons Anselmo Ramirez and Jonas Ga have been involved for years. Called and spoke with FORD Stoll and she has given permission to speak with Anselmo which this DCP did earlier today when he visited. Dr Méndez in today and will transition patient to comfort care. Spoke with Moon at [facility] for potential admission and they will speak with Dodie tomorrow for private payment. Hospice will start once she is transferred. Plan: When medically cleared, discharge to [facility] after financials have been settled by RUTHIE Stoll and then Hospice to start. Contact [facility] and Hospice tomorrow. Discharge Planning/Care Management CM Discharge Assessment Start: 07/06/22 16:38 Freq: Status: Active Protocol: Document 07/06/22 16:38 (Rec: 07/06/22 16:42 [id number]) Discharge Planning Assessment Assigned Chief Of Production Milagro Le RN/DCP DPOA/Assigned Designee Name Jon Lauren, [phone] ([place]) Advance Directives? Yes Advance Directives on File Yes History Provided By Family Member,Medical Record Prior Living Arrangements House Household Members none Type of transporation used prior to Relies on Others admit Independent with ADL's Yes Is patient alert and oriented? Yes Needs Assistance With Home Chores / Shopping Comment Unknown extent of ADL assistance, patient is sleeping most of day Caregiver for Another No Comment unknown Discharge Plan Correction Facility Referrals Initiated Correction,Other Additional Comment [facility] referral Review Status In Process Next Review Type Continued Stay Review
--- NOTE | 2022-07-06 17:56 | PC.NURSE ---
Shift note: Pt is arousable to voice and touch, moans with pain when turned. Several times this shift she woke and was conversant, states she doesnt remember falling. At other times woke with leg cramps that she states are severe. Legs wrapped in warm blankets and this seemed to alleviate the pain. She also complains of a slight headache. She was able to take only small sips of water, swallowing well without coughing. Clear liq diet ordered but refused. Pure wick in place for pt comfort.
[2022-07-06] MEDS: SODIUM CHLORIDE 0.9% FLUSH 10 ML IV (20:39)
[2022-07-06] MEDS: ACETAMINOPHEN 325 MG TABLET 650 MG PO (21:59)
--- NOTE | 2022-07-06 22:40 | PC.NURSE ---
Addendum entered by Nkechi Tapia R.N. 07/07/22 03:25: Patient found with IV again pulled out. Discussed with coordinator, Priscila, and decision made to leave IV out at this time since patient is on comfort care, no telemetry and no IV medications ordered. Will discuss with MD in the morning. Original Note: Patient arouses easily and is oriented except did not know correct age, day of month or day of week. Is very soft spoken as well as ENTERPRISE so can be difficult to communicate with her. Breath sounds CTA with RA sat of 97%. HR irregular but does have hx of afib. BT present and abdomen is soft; denies nausea. Using purewick/brief for urinary output. Assisting patient to reposition q2h as not doing on her own. Bruises noted on right side of face as well as bilateral knees. Emaciated appearance. Had bilateral calf SCD's on but began complaining of muscles spasms/pain in legs so SCD's now off and patient medicated with Tylenol after contacting Dr Méndez for order. Patient pulled out her IV so new IV inserted and wrapped with Coban. Fall risk score is high and bed alarm is activated.
[2022-07-07 08:00] VITALS: BP 94/66; PULSE 128; RESP 17; TEMP 36.2; O2SAT 98
[2022-07-07] MEDS: dilTIAZem CD 120 MG CAP PO (09:06)
[2022-07-07] MEDS: SERTRALINE 50 MG TABLET PO (09:06)
--- NOTE | 2022-07-07 12:33 | PT.IIE ---
Current Diagnoses Traumatic subdural hemorrhage with loss of consciousness status unknown, initial encounter (07/06/22) Surgical History (Last Reviewed 01/28/22 @ 14:39 by TONE Salinas) Colonoscopy planned H/O bilateral cataract extraction History of cataract extraction History of total right hip arthroplasty History of total right hip replacement Medical History (Last Reviewed 07/06/22 @ 12:27 by Sylvester Méndez MD) Arthritis Atrial fibrillation Bruises easily Constipation History of diverticulosis History of stroke History of stroke (~2009) Hypercholesterolemia Hypertension Impaired vision Inguinal hernia Low back pain Lumbar foraminal stenosis Neuropathy of both feet Pain in both hands Pain in joint involving left pelvic region and thigh Rotator cuff impingement syndrome of right shoulder Scoliosis due to degenerative disease of spine in adult patient Seasonal allergies Ulcerative colitis Urinary frequency Physical Therapy Inpatient Evaluation/Re-Eval M1 PT/OT-IP Prior Functional Status Start: 07/07/22 11:42 Freq: NEEDED Status: Active Protocol: Document 07/07/22 12:33 AW (Rec: 07/07/22 14:22 AW [id number]) Medical Review Prior Functional Status Medical History Reviewed Yes Communication Pt is soft spoken and has a difficult time hearing when the speaker is wearing a mask. . She is able to make her needs known. Mobility and Gait Pt states she uses a FWW at home. Activities of Daily Living and IADL's I won't take a shower if I'm home alone. SBA for showers. Otherwise, independent with ADL's. Pt has neighors who provide transportation. Neighbors often provide meals and help with shopping but pt states she still does some cooking. Social History Household Members none Living Arrangements House Number of Floors (Floors) One Floor Number of Stairs To Enter/Railing? 4 CARMELITA with wide bilateral rails Home Environment Standard Height Toilet,Tub/ Shower Home Equipment Hand Held Shower,Grab Bars In Shower Additional Social History Comment Pt lives alone in [place]. She has helpful neighbors. She has family (neices?) who live in the [facility]. M2 PT-IP Current Condition Start: 07/07/22 11:42 Freq: NEEDED Status: Active Protocol: Document 07/07/22 12:33 AW (Rec: 07/07/22 14:22 AW [id number]) Physical Therapy Current Condition Current Condition Evaluation Date 07/07/22 Treatment Diagnosis SDH, GLF, impaired mobility and gait Onset Date 07/04/22 M3 PT-IP Subjective Start: 07/07/22 11:42 Freq: NEEDED Status: Active Protocol: Document 07/07/22 12:33 AW (Rec: 07/07/22 14:22 AW [id number]) Subjective Physical Therapy Visit Type Type Initial Evaluation Visit Start Time 11:58 Visit Stop Time 12:33 Total Visit Minutes 35 Notes Chart notes indicate pt is on comfort care but VISUAL JOURNALIST states physician did not intend this and goals of care include rehab. Physical Therapy Visit Comments Patient Comments Pt is willing to participate with PT Therapy Pain Assessment Pain When Pain Assessed During Mobility Pain Present Pain Present Pain Reported M4 PT-IP Mobility and Gait Start: 07/07/22 11:42 Freq: NEEDED Status: Active Protocol: Document 07/07/22 12:33 AW (Rec: 07/07/22 14:22 AW [id number]) PT-Bed Mobility Assessment Supine to Sit Supine to Sit Minimal Assistance,1 Person Assistance PT-Transfer Assessment Sit to and From Stand Sit to and from Stand Minimal Assistance,1 Person Assistance,Use of Upper Extremities Equipment Transfer Assistive Device Gait Belt,Front Wheeled Walker Orthotic/Prosthetic Devices or Brace: No Transfers Transfer Destination Chair,Toilet Transfer Technique pt ambulated with FWW Transfer Ability Level of Assist Minimal Assistance,1 Person Assistance,Use of Upper Extremities Comments Mobility Comments Pt was lying in bed as PT arrived. BP 98/62 HR 100 SpO2 99% RA. Pt needed min A to sit up EOB. She denied any lightheadedness. She stood min A and complained of right knee pain. She stood with weight shifted toward the left . She transferred to the chair using FWW min A. Gait was notable for reduced RLE weightbearing and poor attention to safety. Pt stood again min A and used FWW to ambulate in the room min A for balance support. She had lateral and posterior LOB requiring min A to recover. She requested to use the toilet and walked into the bathroom. She transferred to the toilet min A. When done voiding, she stood with heavy reliance on the grab bar. She needed reminders to pull up her briefs and min A for balance. She walked to the chair and sat. She was left in the chair with call light at hand. Chair alarm was placed for safety and curtain was left open for high visibility from nurse station. Gait Assessment Gait Gait Assistance Required: Minimum Assistance,1 Person Assist Distance (Feet) 30 Assistive Devices Assistive Device Gait Belt,Front Wheeled Walker Gait Deviations General Gait Pattern Antalgic,Decreased Stride Length,Decreased Feet Clearance,Flexed Trunk,Step-to Gait Factors Limiting Gait Function Factors Limiting Gait Function Decreased Activity Tolerance, Decreased Strength,Pain,Poor Balance,Poor Safety Awareness Comments Gait Comments See mobility comments for details Stair Climbing Assessment Comments Stair Climbing Comments Not assessed. PT-Balance Assessment Sitting Balance and Reactions Static Sitting Balance Ability Good Dynamic Sitting Balance Ability Fair Standing Balance and Reactions Static Standing Balance Ability Fair Dynamic Standing Balance Ability Poor Device Used FWW Comments Other Balance Tests/Deviations/Treatment While walking with FWW, pt : became interested in an item on the floor. She was able to reach down and coal picker the small item with min A for balance. M5 PT-IP Objective Assessments Start: 07/07/22 11:42 Freq: NEEDED Status: Active Protocol: Document 07/07/22 12:33 AW (Rec: 07/07/22 14:22 AW [id number]) Orientation Orientation/Cognition Level of Alertness Confusional State Orientation Name,Situation Safety Awareness Decreased Safety Awareness Memory Description Short Term Impaired Gross Range of Motion Lower Extremity ROM Assessment Within Functional Limits Strength Lower Extremity Strength Hip 4-/5 Knee 4/5 Ankle 4/5 Sensation Assessment Sensation Gross Sensation WNL M6 PT-IP Treatment Start: 07/07/22 11:42 Freq: NEEDED Status: Active Protocol: Document 07/07/22 12:33 AW (Rec: 07/07/22 14:22 AW [id number]) Physical Therapy Treatment Education Education Provided Safety M7 PT-IP Assessment and Plan Start: 07/07/22 11:42 Freq: NEEDED Status: Active Protocol: Document 07/07/22 12:33 AW (Rec: 07/07/22 14:22 AW [id number]) PT Summary Assessment and Plan Potential Rehabilitation Potential Good Status of Condition at Evaluation Evolving Summary Impairments Pain,Strength,Balance, Cognition,Bed Mobility, Transfers,Gait,Activity Tolerance Assessment Summary Faiza is an 87 yo woman who lives independently in the community. She was found down at home and evaluated in the ED. She has subdural hematoma, facial fractures, and right knee pain. PLOF: Pt was modified independent with use of FWW for mobility. She had SBA for showers. Neighbors assisted with transportation, shopping, and meals. CLOF: Pt requiring min assist for mobility with FWW. Pt presents with increased confusion and poor safety awareness affecting her independence. Pt would benefit from SNF rehab to improve her strength, to reduce her falls risk, and to build resilience for return to independent living vs transition to assisted living. Goals Bed Mobility Goal Independent Transfer Goal Independent,Front Wheeled Walker Gait Goal Independent,Front Wheel Walker Gait Distance 150 Other Goals - up/down 4 steps with unilateral rail SBA Days to Meet Goals 10 Frequency of Treatment Frequency Of Treatment Once a Day Treatment Plan Physical Therapy Treatment Plan Bed Mobility Training,Transfer Training,Gait Training, Therapeutic Exercise,Balance Retraining,Discharge Planning, Hot or Cold Pack,Neuromuscular Re-ed,Coordination Retraining Precautions Other Precautions falls Recommendations To Nursing Amount of Assist Needed 1 Person Assist Discharge Recommendations PT Discharge Recommendations Home with 24/ Assist Available,Home Health,SNF Rehab Other Discharge Recommendations SNF vs home with 24/7 and Transportation Needs at Discharge Private Vehicle,Wheelchair/ Cabulance
--- NOTE | 2022-07-07 13:42 | P.PN_ITS ---
Subjective Subjective Date Patient Seen: 07/07/22 Time Patient Seen: 09:00 Interval history: CC: head pain s/p ground level fall Pt more alert and interactive today, making a deal more sense. able to participate in her feeding now which went ok for breakfast. She was able to stand and transfer to bedside commode. less sleepy this morning. Exam Vital Signs (past 8 hours): - 07/07/22 08:00 07/07/22 07:00 Temperature 97.2 F L Pulse Rate 128 H Respiratory Rate 17 Blood Pressure 94/66 Pulse Oximetry 98 Oxygen Delivery Method Room Air Oxygen Delivery Method Room Air Narrative Exam Narrative: bruised but alert elder eating toast Const Nutritional Appearance: thin HENMT Other: extensive R sided facial contusions. EOMI bilaterally. able to chew soft foods ok. speech more clear today Eyes Pupils: PERRL Resp Other: clear to auscultation bilaterally Cardio Other: regular rate S1/S2 GI Other: soft nontender normal bowel sounds Neuro General: patient alert, patient awake and oriented (to city and friend) Extrem General: full ROM and no pedal edema Other: Bruise on R lateral knee Objective Labs Result Diagrams: 07/05/22 21:47 07/05/22 21:47 [facility] Medical History Arthritis Atrial fibrillation Bruises easily Constipation History of diverticulosis History of stroke History of stroke (~2009) Hypercholesterolemia Hypertension Impaired vision Inguinal hernia Low back pain Lumbar foraminal stenosis Neuropathy of both feet Pain in both hands Pain in joint involving left pelvic region and thigh Rotator cuff impingement syndrome of right shoulder Scoliosis due to degenerative disease of spine in adult patient Seasonal allergies Ulcerative colitis Urinary frequency Surgical History Colonoscopy planned H/O bilateral cataract extraction History of cataract extraction History of total right hip arthroplasty History of total right hip replacement Family History Father Cancer Unknown Cancer Social History household members: none lives independently: Yes housing: house Smoking Status: Former smoker alcohol intake: current Assessment & Plan Assessment & Plan narrative: #s/p GLF #R subdural hemorrhage with mild midline shift #R multiple facial fractures Much improved today - I think she could rehab this out if the bleed does not worsen or other complication arise Spoke with Dodie POA who says she might be ok with a feeding tube if necessary Extensive conversation with family and friends they are seeing about options - she is not safe to go home alone given SDH Continue to monitor: DNR status confirmed #R orbital fractures superior and inferior extraocular movements appear intact bilaterally, monitor #afib hold anticoagulation. continue SCDs. continue diltiazem. rate controlled #MDD continue home sertraline Dispo: PT/OT eval, CM exploring placement options MDM: Dodie [phone] Diet: clears DVT: SCDs only code: DNR/DNI Time Spent With Patient Critical Care time: I spent a total of [] minutes of critical care time on this patient's care today; this time is exclusive of procedural time.
--- NOTE | 2022-07-07 15:39 | CM.DPC ---
DCP Note continued MANAGER OFFICE speaks with Dr. Méndez who reports that patient is alert and eating and no longer comfort care and Hospice is not appropriate. MANAGER OFFICE orders PT, per Dr. Méndez's request and Ivanna kindly submits referrals for SNF rehab to [facility], [facility] and [facility] for [facility] Auth. Patient has several supportive and attentive neighbors as well. Patient's niece from [place], Jolie (Ph. # [phone]) is retired nurse. Patient gives consent for DCPs to speak with Jolie, Jolie endorses that she is happy to be main point of contact if needed. Plan: SNFs reviewing patient for SNF rehab via [employer] Auth, f/u with SNFs tomorrow. Esme Gardner, WHISKEY FILTERER
[2022-07-07 20:00] VITALS: BP 106/51; PULSE 75; RESP 19; TEMP 37.3; O2SAT 97
--- NOTE | 2022-07-08 00:06 | PC.NURSE ---
Addendum entered by Nkechi Tapia R.N. 07/08/22 05:01: Has been increasingly impulsive and restless during this shift, setting off bed alarm frequently but is easily redirected although easily forgetful. Throws covers off and then complains of being cold. Currently has RECRUITMENT INTERN sitting with her. Original Note: Patient is alert and mostly oriented; did not know day of month or day of week. Can be forgetful and impulsive at times. Breath sounds CTA with RA sat of 97%. HRR although does have hx of afib. Denies nausea. BT present and abdomen is soft. Has been continent of urine. Assisted to reposition in bed and is assisted to BSC with walker and 1 assist although needs much cueing for proper use of walker. Declines use of SCD's stating she gets a grabbing pain with them on. Allevyn dressing to coccyx is CDI (apparently applied to provide protection for fragile skin although no open areas reported). Denies pain when asked but when assisting into bed grabs at neck and complains of discomfort; declined offer of Tylenol. Fall risk score is high and bed alarm is activated.
[2022-07-08] MEDS: SERTRALINE 50 MG TABLET PO (09:16)
[2022-07-08] MEDS: dilTIAZem CD 120 MG CAP PO (09:16)
--- NOTE | 2022-07-08 10:46 | OT.IP.EVAL ---
Current Diagnoses Traumatic subdural hemorrhage with loss of consciousness status unknown, initial encounter (07/06/22) Past Medical History (Last Reviewed 07/06/22 @ 12:27 by Sylvester Méndez MD) Arthritis Atrial fibrillation Bruises easily Constipation History of diverticulosis History of stroke History of stroke (~2009) Hypercholesterolemia Hypertension Impaired vision Inguinal hernia Low back pain Lumbar foraminal stenosis Neuropathy of both feet Pain in both hands Pain in joint involving left pelvic region and thigh Rotator cuff impingement syndrome of right shoulder Scoliosis due to degenerative disease of spine in adult patient Seasonal allergies Ulcerative colitis Urinary frequency Surgical History (Last Reviewed 01/28/22 @ 14:39 by Daysi Louis, [facility]) Colonoscopy planned H/O bilateral cataract extraction History of cataract extraction History of total right hip arthroplasty History of total right hip replacement Occupational Therapy Inpatient Evaluation/Re-Eval M1 PT/OT-IP Prior Functional Status Start: 07/07/22 11:42 Freq: NEEDED Status: Active Protocol: Document 07/08/22 10:13 [facility] (Rec: 07/08/22 12:17 [facility] [id number]) Medical Review Prior Functional Status Medical History Reviewed Yes Communication Pt is soft spoken and has a difficult time hearing when the speaker is wearing a mask. . She is able to make her needs known. Mobility and Gait Pt states she uses a FWW at home. Activities of Daily Living and IADL's I won't take a shower if I'm home alone. SBA for showers. Otherwise, independent with ADL's. Pt has neighors who provide transportation. Neighbors often provide meals and help with shopping but pt states she still does some cooking. Pt states her doctor stops by to check on her for taking her medications. Social History Household Members none Living Arrangements House Number of Floors (Floors) One Floor Number of Stairs To Enter/Railing? 4 CARMELITA with wide bilateral rails Home Environment Standard Height Toilet,Tub/ Shower Home Equipment Hand Held Shower,Grab Bars In Shower Additional Social History Comment Pt lives alone in [place]. She has helpful neighbors. She has family (neices?) who live in the [facility]. M2 OT-IP Current Condition Start: 07/08/22 11:54 Freq: Status: Active Protocol: Document 07/08/22 10:13 [facility] (Rec: 07/08/22 12:17 [facility] [id number]) Occupational Therapy Current Condition Current Condition Evaluation Date 07/08/22 Treatment Diagnosis Subdural hematoma, GLF, multiple facial fractures Diagnosis Onset Date 07/06/22 M3 OT- IP Subjective and Pain Start: 07/08/22 11:54 Freq: Status: Active Protocol: Document 07/08/22 10:13 [facility] (Rec: 07/08/22 12:17 [facility] [id number]) OT- Subjective Occupational Therapy Visit Type Type Initial Evaluation Visit Start Time 10:13 Visit Stop Time 10:46 Total Visit Minutes 33 Occupational Therapy Visit Comments Patient Comments Pt needing encouragement to get up but agreed. Doctor note mentions feeding order for OT, able to talk to pt's nurse and both agreed that pt would benefit from a softer diet due to her facial fractures and if needing more formal assessment, would be best to have a DYNAMITE SHOOTER eval. Patient/Caregiver Goals Pt unable to said at this time . OT Pain Assessment Pain When Pain Assessed At Rest Pain Present Pain Present Pain Reported FLACC Pain Scale Face Occasional grimace/frown M4 OT- IP ADL's Start: 07/08/22 11:54 Freq: Status: Active Protocol: Document 07/08/22 10:13 [facility] (Rec: 07/08/22 12:17 [facility] [id number]) OT [id number] General Evaluation Self-Feeding Ability Standby Assistance Areas Needing Assistance Cutting Food,Opening Containers Comments OT Self-Feeding Comments Assist for set-up and vc for safety. Pt trying to eat her food with the knife and cued her to use the fork. Pt initially have the spoon and fork in her hand at the same time trying to eat. OT ADL-Grooming Comments OT Grooming Comments Pt able to wash her hands off with a wash cloth. OT ADL-Oral Care Comments Oral Care Comments not performed OT ADL-Dressing Comments OT Dressing Comments not performed OT ADL-Toileting Comments OT Toileting Comments pt states used the bathroom earlier OT ADL-Bathing Comments OT Bathing Comments not performed M5 OT- IP IADL's Start: 07/08/22 11:54 Freq: Status: Active Protocol: Document 07/08/22 10:13 [facility] (Rec: 07/08/22 12:17 [facility] [id number]) OT-Instrumental Activities of Daily Living Home Safety Awareness Awareness of Need for Assistance at Home Decreased Awareness Ability to Problem Solve Emergency Unable to Problem Solve Situations Home Safety Comments Pt orientated to her name mainly and getting confused that she was at home and at the end of the session realizing that she is not home . Medication Management Medication Management Comments Concerns for safety , completeness and will benefit from assist. Money Management Money Management Comments Concerns for safety , completeness and will benefit from assist. Meal Preparation Meal Preparation Comments Concerns for safety , completeness and will benefit from assist. Grading Machine Operator Grading Machine Operator Comments Concerns for safety , completeness and will benefit from assist. M6 OT- IP Functional Cognition Start: 07/08/22 11:54 Freq: Status: Active Protocol: Document 07/08/22 10:13 [facility] (Rec: 07/08/22 12:17 [facility] [id number]) Cognitive Factors Limiting Selfcare Function Cognitive Ability Level of Alertness Alert,Confusional State Patient Orientation Name Attention Span Ability Capable of Focused Attention, Unable to Sustain Attention Ability to Follow Commands Able to Follow One Step Commands with Increased Time, Able to Follow One Step Commands with Repetition Memory Description Short Term Impaired Cognitive Comments Cognitive Assessment Comments Pt able to states her needs and follow simple commands for ADl and mobility needs. OT- Vision and Hearing OT- Hearing Assessment OT- Hearing Assessment Hearing Impaired OT- Vision Assessment Vision Assessment Comments Pt wears glasses and able to read the clock after several tries. Pt is hard of hearing. M7 OT- IP Mobility and Balance Start: 07/08/22 11:54 Freq: Status: Active Protocol: Document 07/08/22 10:13 [facility] (Rec: 07/08/22 12:17 [facility] [id number]) OT- Bed Mobility Assessment Supine to Sit Supine to Sit Assist Moderate Assistance,1 Person Assistance,Head of Bed Elevated OT-Transfer Assessment Sit to and From Stand Sit to and from Stand Minimal Assistance Transfers Transfer Ability Minimal Assistance Technique Transfer Destination Bed,Chair Devices Transfer Assistive Devices Gait Belt,Front Wheeled Walker Comments Mobility Comments MODA to help get out of bed with HOB up. Pt mainly needing assist for her trunk as her head hurting during movements. SOPHIA to stand to FWW and transfer to the recliner. VC to place her hands on the handles of the FWW initially. OT- Balance Assessment Sitting Balance and Reactions Static Sitting Balance Ability Good Dynamic Sitting Balance Ability Fair Standing Balance and Reactions Static Standing Balance Ability Fair Dynamic Standing Balance Ability Poor M8 OT- IP Objective Assessments Start: 07/08/22 11:54 Freq: Status: Active Protocol: Document 07/08/22 10:13 [facility] (Rec: 07/08/22 12:17 [facility] [id number]) OT Gross Range of Motion Upper Extremity Range of Motion Assessment Within Functional Limits ROM Impairments grossly WFL for her age and lifestyle OT Strength Comments Strength Comments BUE 10/22 OT-Muscle Tone Assessment Muscle Tone WNL Yes M9 OT- IP Assessment and Plan Start: 07/08/22 11:54 Freq: Status: Active Protocol: Document 07/08/22 10:13 [facility] (Rec: 07/08/22 12:17 [facility] [id number]) OT Summary Assessment and Plan Potential Rehabilitation Potential Good Analytic Complexity at Evaluation Moderate Summary OT Impairments Pain,Balance,Functional Cognition,Functional Mobility, Self-Feeding,Grooming,Dressing ,Toileting,Bathing,Toilet Transfers,Shower Transfers, Activity Tolerance Progress Towards Goals Slow Progress due to Medical Issues,Slow Progress due to Activity Tolerance,Slow Progress due to Cognition Assessment Summary Pt MOD complexity and main barriers are decreased balance , short term memory however not sure if it is her baseline or from her subdural hematoma , and now needing cues for safety and completeness for ADl and mobility needs. Pt will benefit from skilled rehab to maximize her independence for ADl and mobility needs and afterwards would benefit from either 24/ available assist or transitions to assisted living . Goals Self-Feeding Goal Standby Assistance Grooming Goal Standby Assistance Dressing Goal Standby Assistance Toileting Goal Standby Assistance Bathing Goal Standby Assistance Toilet Transfer Goal Standby Assistance Shower Transfer Goal Standby Assistance Days to Meet Goals 15 Frequency of Treatment Frequency Of Treatment Once a Day Treatment Plan OT Treatment Plan ADL Training,Functional Cognition Training,Functional Mobility,Patient/Family Education,Discharge Planning Other Treatment Recommendations and Next shower Treatment Focus Discharge Recommendations OT Discharge Recommendations SNF Rehab Transportation Needs at Discharge Wheelchair/Cabulance
--- NOTE | 2022-07-08 11:57 | DIET.CONS ---
Dietary Consultation Note Admission Date: 07/06/2022 00:49 Assessment: 87y F with known dementia screened by RD for low body weight (32% below IBW) admitted after GLF on thinners resulting in facial fracture. Pt lives in a home independently with neighbors checking on her daily. Pt with known dementia and hx ED visits for altered mental status. Family trying to secure higher level of care in home vs care facility. Pt described by ED physician as cachectic. Imaging done one year ago remarks pt with very little mesenteric and retroperitoneal fat. Pt originally admitted on comfort care, however, pt now alert and oriented taking breakfast in form of soft diet. Visual inspection of pt shows rail thin frame, depressed temples, hollow orbitals, severely reduced fat mass and pt reporting increased weakness and clumsiness lately. Ht: 162.56 cm Wt: 35.4 kg (32% below IBW) BMI: 13.4 (severe) UBW: 45kg Last BM: 07/08/22 (07/08/22 08:48) MNA: unable to calculate due to AMS Evangelist Score: 18 Diet: 07/07/22 Lunch Easy to Chew/IDDSI7 Diet Diet Modifications: Nutrition Percent Meal Consumed 75% 07/08/22 11:48 Percent Meal Consumed Pt refused breakfast 07/08/22 10:16 Labs: RBC 3.78 X10^6/uL (4.0-5.2) L 07/05/22 21:47 Hgb 12.1 g/dL (12.0-16.0) 07/05/22 21:47 Hct 36.3 % (36-46) 07/05/22 21:47 Creatinine 0.49 mg/dL (0.52-1.04) L 07/05/22 21:47 Nutrition Diagnosis: Severe Chronic Malnutrition r/t difficulty managing self care and psychological reasons aeb pt >30% below ideal body weight, BMI <15, pt lives independently with known dementia admitted for GLF on Warfarin with facial fracture. Malnutrition increases complexity of care and poor outcomes. Interventions: 1. To support nutrition status while hospitalized, sending ONS Ensure Original bid in addition to meal trays. 2. To support nutrition status upon d/c, recc pt be placed in facility where meals can be provided at meal times and PCP to write rx for daily ONS supplementation. EER: 1300kcals (35kcal/kg per PCM) 50g PRO (1.4g/kg per PCM) Monitoring/Evaluations: ONS tolerance, POs Electronically Signed by: Mercedez Sims 07/08/22 11:57 Clinical Dietitian [address] [address]
--- NOTE | 2022-07-08 12:07 | PT.IPTN ---
Current Diagnoses Traumatic subdural hemorrhage with loss of consciousness status unknown, initial encounter (07/06/22) Physical Therapy Treatment Note M2 PT-IP Current Condition Start: 07/07/22 11:42 Freq: NEEDED Status: Active Protocol: Document 07/07/22 12:33 AW (Rec: 07/07/22 14:22 AW [id number]) Physical Therapy Current Condition Current Condition Evaluation Date 07/07/22 Treatment Diagnosis SDH, GLF, impaired mobility and gait Onset Date 07/04/22 M3 PT-IP Subjective Start: 07/07/22 11:42 Freq: NEEDED Status: Active Protocol: Document 07/08/22 12:07 AW (Rec: 07/08/22 12:25 AW [id number]) Subjective Physical Therapy Visit Type Type Treatment Note Visit Start Time 11:35 Visit Stop Time 12:07 Total Visit Minutes 32 Physical Therapy Visit Comments Patient Comments Pt has been restless. She states she needs to use the toilet. Therapy Pain Assessment Pain When Pain Assessed During Mobility Pain Present Pain Present Pain Reported Location back Scale Used not quantified M4 PT-IP Mobility and Gait Start: 07/07/22 11:42 Freq: NEEDED Status: Active Protocol: Document 07/08/22 12:07 AW (Rec: 07/08/22 12:25 AW [id number]) PT-Transfer Assessment Transfers Transfer Destination Chair,Toilet Transfer Technique pt ambulated with FWW Transfer Ability Level of Assist Minimal Assistance,Moderate Assistance,1 Person Assistance ,Use of Upper Extremities Comments Mobility Comments Pt was sitting up in the chair as PT arrived. She was quite restless and attempting to get up. She had her foot stuck under the recliner's foot rest . Assisted pt to free her foot . BP was 93/55 HR variable 94- 105. She was able to stand min A but had immediate posterior LOB requiring min/mod A to recover. She used FWW (but needed max cues and PAIUTE-SHOSHONE assist to maintain contact with walker) to walk to the toilet. She sat and stood from the toilet min/mod A with similar posterior LOB. Pt walked in the room a total of 25 feet. RLE weightbearing was limited and pt walked with excess R knee flexion and ankle plantar flexion. She needed constant balance support to avoid posterior LOB. She returned to the chair and was able to reposition herself. Pt was left reclined in the chair with call light in reach. Gait Assessment Gait Gait Assistance Required: Minimum Assistance,Moderate Assistance,1 Person Assist Distance (Feet) 30 Assistive Devices Assistive Device Gait Belt,Front Wheeled Walker Gait Deviations General Gait Pattern Antalgic,Decreased Stride Length,Decreased Feet Clearance,Flexed Trunk,Narrow Based Gait,Step-to Gait Factors Limiting Gait Function Factors Limiting Gait Function Decreased Activity Tolerance, Decreased Strength,Difficulty Following Directions,Pain,Poor Balance,Poor Safety Awareness Comments Gait Comments See mobility comments for details Stair Climbing Assessment Comments Stair Climbing Comments Not assessed. PT-Balance Assessment Sitting Balance and Reactions Static Sitting Balance Ability Good Dynamic Sitting Balance Ability Fair Standing Balance and Reactions Static Standing Balance Ability Poor Dynamic Standing Balance Ability Poor Device Used FWW Comments Other Balance Tests/Deviations/Treatment Pt needs constant assist to : avoid posterior LOB and has poor awareness of this need. M5 PT-IP Objective Assessments Start: 07/07/22 11:42 Freq: NEEDED Status: Active Protocol: Document 07/07/22 12:33 AW (Rec: 07/07/22 14:22 AW [id number]) Orientation Orientation/Cognition Level of Alertness Confusional State Orientation Name,Situation Safety Awareness Decreased Safety Awareness Memory Description Short Term Impaired Gross Range of Motion Lower Extremity ROM Assessment Within Functional Limits Strength Lower Extremity Strength Hip 4-/5 Knee 4/5 Ankle 4/5 Sensation Assessment Sensation Gross Sensation WNL M6 PT-IP Treatment Start: 07/07/22 11:42 Freq: NEEDED Status: Active Protocol: Document 07/08/22 12:07 AW (Rec: 07/08/22 12:25 AW [id number]) Physical Therapy Treatment Education Education Provided Safety M7 PT-IP Assessment and Plan Start: 07/07/22 11:42 Freq: NEEDED Status: Active Protocol: Document 07/08/22 12:07 AW (Rec: 07/08/22 12:25 AW [id number]) PT Summary Assessment and Plan Potential Rehabilitation Potential Good Status of Condition at Evaluation Evolving Summary Impairments Pain,Strength,Balance, Cognition,Bed Mobility, Transfers,Gait,Activity Tolerance Assessment Summary Renee Hurtado is slightly more alert today but also more confused, requiring frequent reorientation to place, situation, and task. Poor safety awareness, weakness, decreased balance, and RLE pain continue to complicate pt 's mobility. This patient with subdural hematoma will require SNF rehab. Goals Bed Mobility Goal Independent Transfer Goal Independent,Front Wheeled Walker Gait Goal Independent,Front Wheel Walker Gait Distance 150 Other Goals - up/down 4 steps with unilateral rail SBA Days to Meet Goals 10 Frequency of Treatment Frequency Of Treatment Once a Day Treatment Plan Physical Therapy Treatment Plan Bed Mobility Training,Transfer Training,Gait Training, Therapeutic Exercise,Balance Retraining,Discharge Planning, Hot or Cold Pack,Neuromuscular Re-ed,Coordination Retraining Precautions Other Precautions falls Recommendations To Nursing Amount of Assist Needed 1 Person Assist Discharge Recommendations PT Discharge Recommendations SNF Rehab Transportation Needs at Discharge Private Vehicle,Wheelchair/ Cabulance
--- NOTE | 2022-07-08 15:45 | CM.DPNOTE ---
DC Planning note: CM got a call back from [facility], [facility], [facility] all of which wont accept this patient for SNF rehab. [facility] is now reviewing since all other facilities said no who are contracted with [facility]. Thad spoke with Anselmo the social insurance administrator at [facility] today and he wants to talk about this case with his team tomorrow morning in there morning meeting to determine if they will accept the patient. CM called Dodie thompsondeejay and [facility] to talk about discharge planning. CM explained that currently we have not found a SNF willing to accept the patient due to her dementia and elevated caregiving needs. CM explained that the patient is medically ready for DC and we need a stable DC plan for this patient. Patient has caregiving services that have been provided in the past by home instead and patients [facility] is calling them to get caregiver in place for when the patient DC home. family would like [facility] set up as well for PT, OT Nursing an Aid and JAVA DEVELOPER ARCHITECT. CM got F2F signed placed order and faxed clinicals to [facility] for them to review. CM called and left voice message with [facility] to see when they can get services started. CM team will follow up tomorrow with [facility], and patients [facility] [phone] to make sure caregivers are ready for patient to DC home. THAD spoke with Dr. Yanes and let him know about the DC plan and he stated he will write DC orders in the AM. Patients family and [facility] is working on termite treater helper planning for a memory care unit for this patient and is going to be working with the physician to get patient deemed not medically competent to make her own decisions so they can work on getting her placed into a memory care unit for her termite treater helper plan. currently the patient wants to go home doesn't want to go to anywhere termite treater helper. DC plan A: [facility] DC Plan B: home with [facility] and private pay caregivers Mayra Morris RNbuckle assembler
--- NOTE | 2022-07-08 16:13 | P.PN_ITS ---
Subjective Subjective Date Patient Seen: 07/08/22 Time Patient Seen: 16:13 Interval history: Follow-up of subdural and facial fractures. Dementia. Patient with quiet night and day. Sleeping currently. Has been much more alert. And not complaining of pain. Patient otherwise seems to be stable. With no other changes. Exam Vital Signs (past 8 hours): Oxygen Delivery Method Room Air Narrative Exam Narrative: Alert elderly female sleeping no acute distress Objective Labs Result Diagrams: 07/05/22 21:47 07/05/22 21:47 [facility] Medical History Arthritis Atrial fibrillation Bruises easily Constipation History of diverticulosis History of stroke History of stroke (~2009) Hypercholesterolemia Hypertension Impaired vision Inguinal hernia Low back pain Lumbar foraminal stenosis Neuropathy of both feet Pain in both hands Pain in joint involving left pelvic region and thigh Rotator cuff impingement syndrome of right shoulder Scoliosis due to degenerative disease of spine in adult patient Seasonal allergies Ulcerative colitis Urinary frequency Surgical History Colonoscopy planned H/O bilateral cataract extraction History of cataract extraction History of total right hip arthroplasty History of total right hip replacement Family History Father Cancer Unknown Cancer Social History household members: none lives independently: Yes housing: house Smoking Status: Former smoker alcohol intake: current Assessment & Plan Assessment & Plan narrative: subdural hemorrhage with midline shift. Appears to be stable. Waking up. Due to age and risk and dementia. It was elected not to further aggressively treat. Patient is on minimal care. And since she is waking up we will continue to follow but no further treatment. We will hold her anticoagulation. For risk of worsening or change. Patient seems to be doing well. Otherwise. Dementia. Clearly biggest issue in this process. Is not been significantly changed otherwise. We discussed this. Probably not worsened but is a significant issue. Patient currently is not further treat her she is been on aggressive treatment in the past. Issues going to be placement. Will have to follow. Multiple facial fractures. Slowly improving. Nothing needs operative therapy. Severe malnutrition. As per dietitian. Given her weight and lab findings we will continue with time study engineer to establish a better system. Atrial fibrillation. Stable. Will be off of anticoagulation continue diltiazem. Rate seems controlled. At this point given her fall and her risk for falling I think it would be best to not anticoagulate and take those risks. High-risk to be anticoagulated we can decide over time whether that needs to be restarted but would not do it at this time. Disposition. Discussed extensively with social service. Who is working with niece and at this point it looks like home with caretakers with goal of memory care or some type of placement where she can get help on a consistent basis. Appears as if we might be able to discharge tomorrow. 35 minutes spent with patient and nurses discharge planning dictation and orders Time Spent With Patient Critical Care time: I spent a total of [] minutes of critical care time on this patient's care today; this time is exclusive of procedural time.
[2022-07-08 20:00] VITALS: BP 109/55; PULSE 71; RESP 21; TEMP 37.3; O2SAT 100
[2022-07-09 08:00] VITALS: BP 96/52; PULSE 84; RESP 17; TEMP 36.7; O2SAT 99
--- NOTE | 2022-07-09 08:00 | CM.DPC ---
Addendum entered by Macie Michaels R.N. 07/09/22 15:51: [facility]. Barrier, is that there is no financial POA. Asked to speak to Hortensia or Treva, as patient was accepted at their facility, and patient needs to discharge tomorrow. Spoke to Dodie corrales, and let her know that home will be the only choice if this can't be resolved, and she needs to work it out with the facility. Have a message out to Hortensia and Treva, as patient is discharging tomorrow. Addendum entered by Macie Michaels R.N. 07/09/22 15:29: Called over at [facility] to speak to Hortensia or Treva to confirm admission for tomorrow. They are to be calling back, it is unclear if payment can be an issue with patient signing check.Gave her this [place] Street Light Servicer Supervisor's direct number to call back. Addendum entered by Macie Michaels R.N. 07/09/22 13:49: Neetu at [facility] has just seen patient, and can accept tomorrow. She indicated, due to the time of day and completing her assessment, can't get it done in time. Treva is the director of database marketing at [facility], and will contact [facility]. Met with Dr. Carpenter. This [place] Street Light Servicer Supervisor inquired with him, as he indicated that the plan was home with home health, he stated, he was not aware that they would not be there 24 hours, and would not be a safe plan. Did let him know that [facility] has accepted, with plan for tomorrow. Also, let him know that this would be an avoidable day, since she is medically stable and awaiting placement for tomorrow. Called Kasandra at [facility] to see if she can accept tomorrow, and indicated, they cannot. Stated, may have a bed soon, if RUTHIE decides she wants to move her. Called RUTHIE Stoll, and let her know that [facility] can accept tomorrow, since [facility] has no openings. She is aware, and will be in contact with Treva. Dr. Carpenter will not be here tomorrow, so Dr. Méndez will need to complete DC orders. Addendum entered by Macie Michaels R.N. 07/09/22 10:54: [facility] has declined patient. Called back Shana HENDRICKSt, and let her know that she needs to continue to call facilities, and as back up, will need to call back [facility], should assisted not be an option. Patient's neighbor, retired, , Dr. Martínez, showed up and told nurse, I can't be her caregiver, her niece called me and asked me to check in on her. Let nurse, Ashanti, know that this [place] Street Light Servicer Supervisor will not discuss any information with him, as he is not POA. Encouraged her to let him know that case management is working on case. VETERINARY MEDICINE SCIENTIST, Colette, called over at [facility], and spoke to their director of database marketing, Colette. Stated, they do have beds available. Gave her an update on patient's history, and Ivanna is faxing information. Gave her the POA phone number, Dodie, as well. Asked if nurse can come and see her today, for possible admit today, stated, she will let us know, otherwise, let her know that DC planning will have to look for other facilities. Original Note: DCP Cont: Brie Rodriguez had called and left a message, stating that she does not have anyone at home to take care of her. This [place] Street Light Servicer Supervisor called back Dodie, who is DPOA, and had Brie linked in to the call. Mentioned [facility], this [place] Street Light Servicer Supervisor had left them a message. Let her know that she should be prepared that they will not accept patient, secondary to her having dementia and a one on one sitter. Their continuing to state, but what if home health comes and she does not let anyone in the house? Let her know that this may need to be attempted again, since trauma, patient may let individuals into the home. They have tried home caregivers before. They have done some attempting of getting home caregivers, and have a call out to Elizabeth. Let Dodie know that she should be prepared for patient to be discharged, should there be no other options, with home health. Let her know that she can go home BLS, if no one can pick her up, but would be a cost. Asked Dodie if she can reach out to neighbors, as this [place] Street Light Servicer Supervisor will only speak to DPOA, to see if they can check on patient, and [facility] will be ordered. She indicated that she will reach out to them, and call this [place] Street Light Servicer Supervisor back. In the meantime, have a call out to [facility], for possible transition over to [facility]. P: DCP to work on discharge today. [facility] Stoll, is main point of contact. Macie Michaels, RN/Dental Surgeon
[2022-07-09] MEDS: dilTIAZem CD 120 MG CAP PO (10:25)
[2022-07-09] MEDS: SERTRALINE 50 MG TABLET PO (10:26)
--- NOTE | 2022-07-09 13:14 | PT.IPTN ---
Current Diagnoses Traumatic subdural hemorrhage with loss of consciousness status unknown, initial encounter (07/06/22) Physical Therapy Treatment Note M2 PT-IP Current Condition Start: 07/07/22 11:42 Freq: NEEDED Status: Active Protocol: Document 07/07/22 12:33 AW (Rec: 07/07/22 14:22 AW [id number]) Physical Therapy Current Condition Current Condition Evaluation Date 07/07/22 Treatment Diagnosis SDH, GLF, impaired mobility and gait Onset Date 07/04/22 M3 PT-IP Subjective Start: 07/07/22 11:42 Freq: NEEDED Status: Active Protocol: Document 07/09/22 12:46 LJ (Rec: 07/09/22 13:14 LJ [id number]) Subjective Physical Therapy Visit Type Type Treatment Note Visit Start Time 11:24 Visit Stop Time 11:52 Total Visit Minutes 28 Physical Therapy Visit Comments Patient Comments Pt in bed upon arrival. Asking to use the toilet. Therapy Pain Assessment Pain When Pain Assessed During Mobility Pain Present Pain Present Denied Pain M4 PT-IP Mobility and Gait Start: 07/07/22 11:42 Freq: NEEDED Status: Active Protocol: Document 07/09/22 12:46 LJ (Rec: 07/09/22 13:14 LJ [id number]) PT-Bed Mobility Assessment Supine to Sit Supine to Sit Minimal Assistance,1 Person Assistance,Head of Bed Elevated PT-Transfer Assessment Sit to and From Stand Sit to and from Stand Contact Guard Assistance,1 Person Assistance,Use of Upper Extremities Transfers Transfer Destination Bed,Toilet Transfer Ability Level of Assist Minimal Assistance,1 Person Assistance,Use of Upper Extremities Comments Mobility Comments Pt in bed upon arrival. Requested to use the toilet. Pt needing Rafael for bed mobility as much for mobility as for cues. Pt stood Rafael for cues, CGA for mobility. Pt then ambulated to toilet using only forefoot of right foot. Asked if knee or foot hurt and she replied No. Cued pt to put heel on the floor when walking and pt able to improve her gait. Ambulated to bathroom and attempted to leave FWW at the door. Cued to continue using the walker until she was in front of the toilet. Pt assisted with moving walker out of the way then she used grab bar to assist in sitting down. Pt able to do pericare indep. Sit >stand from toilet CGA. Pt walked to sink to wash hands. Again needed to be cued to place right heel on floor when walking. Pt ambulated to bed with improved gait again. Pt refused to sit in chair stating she had a headache and wanted to get back in bed. Pt required Rafael and Min cues for lowering trunk into SL position. Required ModA to reposition correctly in bed. Pt was left with call light in bed next to left hand. Gait Assessment Gait Gait Assistance Required: Contact Guard Assist,Minimum Assistance,1 Person Assist Distance (Feet) 40 Assistive Devices Assistive Device Gait Belt,Front Wheeled Walker Gait Deviations General Gait Pattern Antalgic,Decreased Stride Length,Decreased Feet Clearance,Flexed Trunk,Narrow Based Gait,Step-to Gait Factors Limiting Gait Function Factors Limiting Gait Function Decreased Activity Tolerance, Decreased Strength,Difficulty Following Directions,Pain,Poor Balance,Poor Safety Awareness Comments Gait Comments See mobility comments for details Stair Climbing Assessment Comments Stair Climbing Comments Not assessed. PT-Balance Assessment Comments Other Balance Tests/Deviations/Treatment Pt demonstrated less posterior : lean this treatment however still requires near constant cueing for gait to lower right heel and position FWW properly. Pt is cooperative but confused and impulsive. Curtain Mender needs to pay attention closely to LEs and pts impulsivity. M5 PT-IP Objective Assessments Start: 07/07/22 11:42 Freq: NEEDED Status: Active Protocol: Document 07/07/22 12:33 AW (Rec: 07/07/22 14:22 AW [id number]) Orientation Orientation/Cognition Level of Alertness Confusional State Orientation Name,Situation Safety Awareness Decreased Safety Awareness Memory Description Short Term Impaired Gross Range of Motion Lower Extremity ROM Assessment Within Functional Limits Strength Lower Extremity Strength Hip 4-/5 Knee 4/5 Ankle 4/5 Sensation Assessment Sensation Gross Sensation WNL M6 PT-IP Treatment Start: 07/07/22 11:42 Freq: NEEDED Status: Active Protocol: Document 07/09/22 12:46 JULIENNE (Rec: 07/09/22 13:14 LJ [id number]) Physical Therapy Treatment Education Education Provided Safety M7 PT-IP Assessment and Plan Start: 07/07/22 11:42 Freq: NEEDED Status: Active Protocol: Document 07/09/22 12:46 JULIENNE (Rec: 07/09/22 13:14 LJ [id number]) PT Summary Assessment and Plan Potential Rehabilitation Potential Good Status of Condition at Evaluation Evolving Summary Impairments Pain,Strength,Balance, Cognition,Bed Mobility, Transfers,Gait,Activity Tolerance Assessment Summary Pt alert but still confused and disoriented. Needs redirectioning for gait mechanics and task at hand. Continues to have poor safety awareness and balance. She will require SNF for continued rehab. Goals Bed Mobility Goal Independent Transfer Goal Independent,Front Wheeled Walker Gait Goal Independent,Front Wheel Walker Gait Distance 150 Other Goals - up/down 4 steps with unilateral rail SBA Days to Meet Goals 10 Frequency of Treatment Frequency Of Treatment Once a Day Treatment Plan Physical Therapy Treatment Plan Bed Mobility Training,Transfer Training,Gait Training, Therapeutic Exercise,Balance Retraining,Discharge Planning, Hot or Cold Pack,Neuromuscular Re-ed,Coordination Retraining Precautions Other Precautions falls Recommendations To Nursing Amount of Assist Needed 1 Person Assist Discharge Recommendations PT Discharge Recommendations SNF Rehab
--- NOTE | 2022-07-09 13:29 | P.PN_ITS ---
Subjective Subjective Date Patient Seen: 07/09/22 Time Patient Seen: 13:29 Interval history: Patient seen in follow-up of subdural hemorrhage dementia multiple facial fractures atrial fibrillation. Patient has no complaints today except a mild headache. Otherwise no significant change. Still somewhat confused. Exam Vital Signs (past 8 hours): - 07/09/22 08:00 Temperature 98.1 F Pulse Rate 84 Respiratory Rate 17 Blood Pressure 96/52 L Pulse Oximetry 99 Oxygen Flow Rate 0 Oxygen Delivery Method Room Air Oxygen Flow Rate 0 Narrative Exam Narrative: Alert female lying in bed in no acute distress HEENT exam marked ecchymosis over the right side of face with no abnormality otherwise except some mild tenderness around the orbit. EOMI is intact. Lungs are clear heart is regular rate and rhythm neurologic exam is nonfocal Objective Labs Result Diagrams: 07/05/22 21:47 07/05/22 21:47 [facility] Medical History Arthritis Atrial fibrillation Bruises easily Constipation History of diverticulosis History of stroke History of stroke (~2009) Hypercholesterolemia Hypertension Impaired vision Inguinal hernia Low back pain Lumbar foraminal stenosis Neuropathy of both feet Pain in both hands Pain in joint involving left pelvic region and thigh Rotator cuff impingement syndrome of right shoulder Scoliosis due to degenerative disease of spine in adult patient Seasonal allergies Ulcerative colitis Urinary frequency Surgical History Colonoscopy planned H/O bilateral cataract extraction History of cataract extraction History of total right hip arthroplasty History of total right hip replacement Family History Father Cancer Unknown Cancer Social History household members: none lives independently: Yes housing: house Smoking Status: Former smoker alcohol intake: current Assessment & Plan Assessment & Plan narrative: Subdural hemorrhage with midline shift. Stable at this time. Will continue off of anticoagulation and follow. Dementia. Still biggest issue. Not safe at home. Happy but otherwise no other changes. Multiple facial fractures slow improvement. No operative therapy will follow Severe malnutrition. Will be discharged to some type of care facility which should help us improve her nutritional status. As per dietitian Atrial fibrillation. Stable. Will not anticoagulate. Will follow. Risk is too high. Disposition. There was some question about send her home with home health. I do not believe this is at all safe. And is not acceptable care. Patient has been unsafe for some time. Dependent on neighbors which at this time is not a functional option. Placement is only option. Appears as if we have the location for tomorrow. Will discharge tomorrow to assisted living or assisted whichever we find or possibly memory care. I believe this is a long-term placement but will see how things go. Discussed with patient. Time Spent With Patient Critical Care time: I spent a total of [] minutes of critical care time on this patient's care today; this time is exclusive of procedural time.
--- NOTE | 2022-07-09 15:02 | OT.IPNOTE ---
Pt is very frustrated and wanting to go home. Pt O x name and year . Pt initially agreeing to do [facility] and then after not able to answer the questions, wanting to stop and states that she knows things but that her memory is not very good at times. NO charge
[2022-07-09 20:00] VITALS: BP 99/55; PULSE 88; RESP 18; TEMP 37.2; O2SAT 100
[2022-07-09] MEDS: ACETAMINOPHEN 325 MG TABLET 650 MG PO (22:50)
--- NOTE | 2022-07-09 22:54 | PC.NURSE ---
Pt. up to [facility] wi 1 person assist and walker. Complaining of headache and medicated with tylenol. awaiting results.
--- NOTE | 2022-07-10 06:35 | PC.NURSE ---
updated family as to status at present time. Family continuing to look for memory care unit.
--- NOTE | 2022-07-10 08:50 | CM.DPC ---
DCP Continued: THAD spoke with patients FORD Stoll and Jolie this morning. They have been working with sarah at [facility] to get the patient DC to there facility today however they do not have transport for the patient to the facility. CM talked with Patients FORD Stoll and Jolie about Transport options are BLS, Taxi, family or a Cabulance- FORD stated she would prefer BLS transport to [facility]. CM explained that they could received a bill between $1400-$1700 depending on if there insurance will cover the cost or not CM filled out a BLS medical necessity form and will submit that to [facility] to see if it can help but that they could received a bill. FORD Dave stated understanding and wanted a BLS transport set up for her aunt. JAZZ Goncalves set up BLS for 11am, CM called [facility] to let them know of BLS transport time they were in agreement and Family will arrive at [facility] at 1130 to sign paperwork and give check to the facility to pay for her care. CM contacted Dr. Méndez and let him know of DC plan to [facility] and he stated agreement and will do DC paperwork and sign BLS transport paperwork this AM prior to DC to facility. THAD spoke with [facility] and would like a negative covid swab. CM placed a stat order per MD for this to be done. Mayra Capone
--- NOTE | 2022-07-10 08:54 | CM.DPNOTE ---
Called [facility] and spoke to Nikita for 1100 transport to [facility] per Mayra. Ivanna Brasher CM Assist.
[2022-07-10] MEDS: SERTRALINE 50 MG TABLET PO (09:54)
[2022-07-10] MEDS: dilTIAZem CD 120 MG CAP PO (09:54)
--- NOTE | 2022-07-10 10:09 | PM.DS.1 ---
History of Present Illness History of Present Illness Date Patient Seen: 07/10/22 Time Patient Seen: 09:20 Chief complaint: GLF on Blood Thinners Narrative: This morning she is feeling much better she is grossly oriented and conversant ready to go to outside facility. Eating well able to take meds and transfer with supervision. Discharge Providers Provider Date of admission: 07/06/22 00:49 Discharge Date: 07/10/22 Primary care physician: TONE Baer Consults: 07/06/22 12:42 Consult to Occupational Therapy Evaluate & Treat Comment: Physician Instructions: Evaluate and treat 07/07/22 09:32 Consult to Physical Therapy Evaluate & Treat Comment: Physician Instructions: Evaluate and Treat Discharge provider: Sylvester Méndez MD Summary Hospital Course Discharge Diagnosis: Subdural hemorrhage with midline shift Dementia Multiple facial fractures Severe protein calorie malnutrition Atrial fibrillation Depression Osteoporosis Hospital Course: Pt lives alone found down s/p GLF with contusions on face initially incoherent - evaluation in ED found small R sided SDH with small but notable midline shift, as well as multiple minimally displaced R sided facial fractures. She is on chronic anticoagulation for afib and does have diagnosis of dementia with plans for memory care prior to this fall. Jon Stoll is POA, she is DNI/DNR. Oral DOACs were held on admission and are still being held at d/c - she is rate controlled afib on diltiazem. Some decision will need to be made regarding longterm anticoagulation but not while she is actively resolving an SDH this has been discussed with family. Status at Discharge Cognitive/behavioral status at discharge: oriented and calm Functional status at discharge: uses cane/walker Overall status at discharge: patient is progressing back to baseline Exam Vital Signs (past 8 hours): - 07/10/22 07:00 Oxygen Delivery Method Room Air Oxygen Delivery Method Room Air Oxygen Flow Rate 0 Narrative Exam Narrative: bruised elder sitting in bed chatting with friends Const Nutritional Appearance: thin HENMT Other: extensive bruising on R side of face and orbit. Eyes intact, extraocular movements intact Neck Neck: full ROM Resp Other: moving air well clear to auscultation bilaterally Cardio Other: regular rate irregular rhythm S1/S2 GI Other: soft nontender nondistended normal bowel sounds Skin Other: contusions to face and knee Neuro General: oriented (person place area year season) Extrem General: full ROM Psych Speech and Movement: speech and movement normal and speech clear Objective Labs Result Diagrams: 07/05/22 21:47 07/05/22 21:47 [facility] Medical History Arthritis Atrial fibrillation Bruises easily Constipation History of diverticulosis History of stroke History of stroke (~2009) Hypercholesterolemia Hypertension Impaired vision Inguinal hernia Low back pain Lumbar foraminal stenosis Neuropathy of both feet Pain in both hands Pain in joint involving left pelvic region and thigh Rotator cuff impingement syndrome of right shoulder Scoliosis due to degenerative disease of spine in adult patient Seasonal allergies Ulcerative colitis Urinary frequency Surgical History Colonoscopy planned H/O bilateral cataract extraction History of cataract extraction History of total right hip arthroplasty History of total right hip replacement Family History Father Cancer Unknown Cancer Social History household members: none lives independently: Yes housing: house Smoking Status: Former smoker alcohol intake: current Discharge Assessment & Plan Assessment and Plan Assessment: #Subdural hemorrhage with midline shift stable, hold xarelto, cognitive status improving. further imaging not likely to roving changer. #Dementia Agree not safe at home.? Happy but otherwise no other changes.? #Multiple R sided facial fractures Slow improvement noted. EOMI.? No operative therapy. Seems to be eating and breathing ok. #Severe protein calorie malnutrition Per dietitian, encourage PO intake with supplemental shakes. #Atrial fibrillation Stable on diltiazem, hold xarelto, f/u as outpt. #depression stable, mild, continue zoloft 50 #osteoporosis stable continue weekly alendronate and calcium and vit D dispo: dc to [facility] facility, resume oral meds except xarelto MDM: Jon Stoll PCP: Pauline Code: DNR/DNI diet: as tolerated Discharge Plan Discharge Plan Patient Disposition: Assisted Living Other facility: [facility] Discharge orders & Medications Discharge Orders: Discharge (Order); Ordered 07/10/22 Ordered By: Sylvester Méndez Prescriptions: New diltiazem HCl 120 mg Capsule,Extended Release 24hr 120 mg PO DAILY Qty: 30 0RF sertraline [Zoloft] 50 mg Tablet 50 mg PO DAILY Qty: 30 0RF Continued alendronate 70 mg tablet 70 mg PO QWEEK hydrocortisone 2.5 % cream 1 applictn TOP BID PRN (Reason: skin irritation) Qty: 28 0RF simvastatin [Zocor] 10 MG tablet 10 mg PO HS Qty: 0 diclofenac sodium [Voltaren] 1 % gel 1 johnson Topical PRN PRN (Reason: Pain) Qty: 0 Label Comments: To Left wrist 4x/day trazodone 50 MG tablet 25 mg PO QDAY Qty: 0 warfarin 2.5 mg tablet 5 mg PO DAILY Rx Instructions: 7 ondansetron 4 mg tablet,disintegrating 4 mg PO TID-QID PRN (Reason: nausea and vomiting) Qty: 10 0RF fluticasone propionate [Allergy Relief (fluticasone)] 50 mcg/actuation spray,suspension 1 spray NASAL DAILY calcium 630 mg PO DAILY melatonin 3 mg tablet 3 mg PO BEDTIME PRN docusate sodium 2 each PO DAILY psyllium Powder 1 tsp PO DAILY Discontinued warfarin 2.5 mg tablet 2.5 mg PO SEEINSTR Rx Instructions: 2x/week, don't know which days sertraline 25 mg tablet 25 mg PO DAILY Follow up/Referrals: Lorie Carpenter ARNP [Primary Care Provider] - Discharge Data Primary Care Provider: Lorie Carpenter
[2022-07-10 10:42] VITALS: BP 95/52; PULSE 62; RESP 17; TEMP 37.2; O2SAT 98
[2022-07-10 10:45] LABS: COVID19 -Nasal RAPID Negative (Negative)
--- NOTE | 2022-07-10 11:17 | PT.IPTN ---
Current Diagnoses Unspecified severe protein-calorie malnutrition (07/06/22) Pure hypercholesterolemia, unspecified (07/06/22) Unspecified dementia, unspecified severity, without behavioral disturbance, psychotic disturbance, mood disturbance, and anxiety (07/06/22) Major depressive disorder, single episode, unspecified (07/06/22) Depression, unspecified (07/06/22) Compression of brain (07/06/22) Unspecified atrial fibrillation (07/06/22) Age-related osteoporosis without current pathological fracture (07/06/22) Fracture of orbital floor, right side, initial encounter for closed fracture (07/06/22) Maxillary fracture, right side, initial encounter for closed fracture (07/06/22) Fracture of lateral orbital wall, right side, initial encounter for closed fracture (07/06/22) Traumatic subdural hemorrhage with loss of consciousness status unknown, initial encounter (07/06/22) Fall on same level, unspecified, initial encounter (07/06/22) Contact with and (suspected) exposure to COVID-19 (07/06/22) Encounter for palliative care (07/06/22) Do not resuscitate (07/06/22) Body mass index [BMI] 19.9 or less, adult (07/06/22) nursing home (current) use of anticoagulants (07/06/22) Personal history of nicotine dependence (07/06/22) Physical Therapy Treatment Note M2 PT-IP Current Condition Start: 07/07/22 11:42 Freq: NEEDED Status: Discharge Protocol: Document 07/10/22 10:48 SP (Rec: 07/11/22 19:01 SP [id number]) Physical Therapy Current Condition Current Condition Evaluation Date 07/07/22 Treatment Diagnosis SDH, GLF, impaired mobility and gait Onset Date 07/04/22 M3 PT-IP Subjective Start: 07/07/22 11:42 Freq: NEEDED Status: Discharge Protocol: Document 07/10/22 10:48 SP (Rec: 07/11/22 19:01 SP [id number]) Subjective Physical Therapy Visit Type Type Treatment Note Visit Start Time 10:48 Visit Stop Time 11:17 Total Visit Minutes 29 Notes GALVANIZER ZINC of [facility] entered room during tx to check how pt progressing. Number of SYSTEM PLANNING ENGINEER Visits 2 Physical Therapy Visit Comments Patient Comments Pt willing to mobilize with therapy. Therapy Pain Assessment Pain When Pain Assessed During Mobility Pain Present Pain Present Denied Pain M4 PT-IP Mobility and Gait Start: 07/07/22 11:42 Freq: NEEDED Status: Discharge Protocol: Document 07/10/22 10:48 SP (Rec: 07/11/22 19:01 SP [id number]) PT-Bed Mobility Assessment Supine to Sit Supine to Sit Minimal Assistance,1 Person Assistance,Head of Bed Elevated Scooting Scooting to Edge of Bed Minimal Assistance PT-Transfer Assessment Sit to and From Stand Sit to and from Stand Minimal Assistance,Moderate Assistance,1 Person Assistance ,Use of Upper Extremities Equipment Transfer Assistive Device Gait Belt,Front Wheeled Walker Orthotic/Prosthetic Devices or Brace: No Transfers Transfer Destination Chair Transfer Technique pt ambulated with FWW Transfer Ability Level of Assist Minimal Assistance,Moderate Assistance,1 Person Assistance ,Use of Upper Extremities Comments Mobility Comments Pt elevated supine eating breakfast when arrived. Completed elevated supine>sit Min A for trunk righting/ lateral scoot use of bed rail, scoot forward Min/ Mod A. Sit >stand Min/Mod A w/ FWW cues for proper hand placement push from bedc come to full stand, forward gait to room bench w/ use of FWW max cues for R DF/ forefoot clearance and heel toe WB into flat foot midstance phases with increase WBOS due to almost scissor stepping, Mod A for lateral L> R trunk stability during gait around room approx 30 ft total . Cues for pivot and step back fully to chair hand over hand cues for reach back chair arms, Mod A slow descent to sit in chair. Pt had call light, chair alarm donned and all needs in reach. Pt will require SNF for progression strength and mobility. Will continue to assess progress. Gait Assessment Gait Gait Assistance Required: Minimum Assistance,Moderate Assistance,1 Person Assist Distance (Feet) 30 Assistive Devices Assistive Device Gait Belt,Front Wheeled Walker Orthotic/Prosthetic Devices or Brace: No Gait Deviations General Gait Pattern Antalgic,Decreased Stride Length,Decreased Feet Clearance,Flexed Trunk,Lateral Trunk Lean,Narrow Based Gait, Step-to Gait Factors Limiting Gait Function Factors Limiting Gait Function Decreased Activity Tolerance, Decreased Strength,Difficulty Following Directions,Pain,Poor Balance,Poor Safety Awareness Comments Gait Comments see mobility comments Stair Climbing Assessment Comments Stair Climbing Comments Not assessed, pt has 4 steps wtih B HR to enter her home, unable to assess at this time . PT-Balance Assessment Sitting Balance and Reactions Static Sitting Balance Ability Good Dynamic Sitting Balance Ability Fair Standing Balance and Reactions Static Standing Balance Ability Poor Dynamic Standing Balance Ability Poor Device Used FWW Comments Other Balance Tests/Deviations/Treatment Pt demonstrates little retro : and more lateral trunk lean during gait, noted scissor stepping, see cues for RLE positoining during gait for stability. M5 PT-IP Objective Assessments Start: 07/07/22 11:42 Freq: NEEDED Status: Discharge Protocol: Document 07/07/22 12:33 AW (Rec: 07/07/22 14:22 AW [id number]) Orientation Orientation/Cognition Level of Alertness Confusional State Orientation Name,Situation Safety Awareness Decreased Safety Awareness Memory Description Short Term Impaired Gross Range of Motion Lower Extremity ROM Assessment Within Functional Limits Strength Lower Extremity Strength Hip 4-/5 Knee 4/5 Ankle 4/5 Sensation Assessment Sensation Gross Sensation WNL M6 PT-IP Treatment Start: 07/07/22 11:42 Freq: NEEDED Status: Discharge Protocol: Document 07/10/22 10:48 SP (Rec: 07/11/22 19:01 SP [id number]) Physical Therapy Treatment Education Education Provided Safety M7 PT-IP Assessment and Plan Start: 07/07/22 11:42 Freq: NEEDED Status: Discharge Protocol: Document 07/10/22 10:48 SP (Rec: 07/11/22 19:01 SP [id number]) PT Summary Assessment and Plan Potential Rehabilitation Potential Good Status of Condition at Evaluation Evolving Summary Impairments Pain,Strength,Balance, Cognition,Bed Mobility, Transfers,Gait,Activity Tolerance Progress Towards Goals Slow Progress due to Activity Tolerance,Slow Progress - Other Assessment Summary Pt lived at home alone. Today she is alert but still confused and disoriented. Requires Min/Mod A w/ use FWW. Needs redirectioning for gait mechanics and task at hand. Continues to have poor safety awareness and balance. She will require SNF for continued rehab. Goals Bed Mobility Goal Independent Transfer Goal Independent,Front Wheeled Walker Gait Goal Independent,Front Wheel Walker Gait Distance 150 Other Goals - up/down 4 steps with unilateral rail SBA Days to Meet Goals 10 Frequency of Treatment Frequency Of Treatment Once a Day Treatment Plan Physical Therapy Treatment Plan Bed Mobility Training,Transfer Training,Gait Training, Therapeutic Exercise,Balance Retraining,Discharge Planning, Hot or Cold Pack,Neuromuscular Re-ed,Coordination Retraining Other Recommendations and Next Treatment bed mob, transfers, gait w/ Focus FWW, safety techniques, fall risk Precautions Other Precautions falls Recommendations To Nursing Amount of Assist Needed 1 Person Assist Discharge Recommendations PT Discharge Recommendations SNF Rehab Transportation Needs at Discharge Private Vehicle,Wheelchair/ Cabulance
--- NOTE | 2022-07-10 11:17 | PT.IPTN ---
Current Diagnoses Traumatic subdural hemorrhage with loss of consciousness status unknown, initial encounter (07/06/22) Physical Therapy Treatment Note M2 PT-IP Current Condition Start: 07/07/22 11:42 Freq: NEEDED Status: Discharge Protocol: Document 07/11/22 10:48 SP (Rec: 07/11/22 19:01 SP [id number]) Physical Therapy Current Condition Current Condition Evaluation Date 07/07/22 Treatment Diagnosis SDH, GLF, impaired mobility and gait Onset Date 07/04/22 M3 PT-IP Subjective Start: 07/07/22 11:42 Freq: NEEDED Status: Discharge Protocol: Document 07/11/22 10:48 SP (Rec: 07/11/22 19:01 SP [id number]) Subjective Physical Therapy Visit Type Type Treatment Note Visit Start Time 10:48 Visit Stop Time 11:17 Total Visit Minutes 29 Notes [employer] [facility] entered room during tx to check how pt progressing. Number of COILER Visits 2 Physical Therapy Visit Comments Patient Comments Pt willing to mobilize with therapy. Therapy Pain Assessment Pain When Pain Assessed During Mobility Pain Present Pain Present Denied Pain M4 PT-IP Mobility and Gait Start: 07/07/22 11:42 Freq: NEEDED Status: Discharge Protocol: Document 07/11/22 10:48 SP (Rec: 07/11/22 19:01 SP [id number]) PT-Bed Mobility Assessment Supine to Sit Supine to Sit Minimal Assistance,1 Person Assistance,Head of Bed Elevated Scooting Scooting to Edge of Bed Minimal Assistance PT-Transfer Assessment Sit to and From Stand Sit to and from Stand Minimal Assistance,Moderate Assistance,1 Person Assistance ,Use of Upper Extremities Equipment Transfer Assistive Device Gait Belt,Front Wheeled Walker Orthotic/Prosthetic Devices or Brace: No Transfers Transfer Destination Chair Transfer Technique pt ambulated with FWW Transfer Ability Level of Assist Minimal Assistance,Moderate Assistance,1 Person Assistance ,Use of Upper Extremities Comments Mobility Comments Pt elevated supine eating breakfast when arrived. Completed elevated supine>sit Min A for trunk righting/ lateral scoot use of bed rail, scoot forward Min/ Mod A. Sit >stand Min/Mod A w/ FWW cues for proper hand placement push from bedc come to full stand, forward gait to room bench w/ use of FWW max cues for R DF/ forefoot clearance and heel toe WB into flat foot midstance phases with increase WBOS due to almost scissor stepping, Mod A for lateral L> R trunk stability during gait around room approx 30 ft total . Cues for pivot and step back fully to chair hand over hand cues for reach back chair arms, Mod A slow descent to sit in chair. Pt had call light, chair alarm donned and all needs in reach. Pt will require SNF for progression strength and mobility. Will continue to assess progress. Gait Assessment Gait Gait Assistance Required: Minimum Assistance,Moderate Assistance,1 Person Assist Distance (Feet) 30 Assistive Devices Assistive Device Gait Belt,Front Wheeled Walker Orthotic/Prosthetic Devices or Brace: No Gait Deviations General Gait Pattern Antalgic,Decreased Stride Length,Decreased Feet Clearance,Flexed Trunk,Lateral Trunk Lean,Narrow Based Gait, Step-to Gait Factors Limiting Gait Function Factors Limiting Gait Function Decreased Activity Tolerance, Decreased Strength,Difficulty Following Directions,Pain,Poor Balance,Poor Safety Awareness Comments Gait Comments see mobility comments Stair Climbing Assessment Comments Stair Climbing Comments Not assessed, pt has 4 steps wtih B HR to enter her home, unable to assess at this time . PT-Balance Assessment Sitting Balance and Reactions Static Sitting Balance Ability Good Dynamic Sitting Balance Ability Fair Standing Balance and Reactions Static Standing Balance Ability Poor Dynamic Standing Balance Ability Poor Device Used FWW Comments Other Balance Tests/Deviations/Treatment Pt demonstrates little retro : and more lateral trunk lean during gait, noted scissor stepping, see cues for RLE positoining during gait for stability. M5 PT-IP Objective Assessments Start: 07/07/22 11:42 Freq: NEEDED Status: Discharge Protocol: Document 07/07/22 12:33 AW (Rec: 07/07/22 14:22 AW [id number]) Orientation Orientation/Cognition Level of Alertness Confusional State Orientation Name,Situation Safety Awareness Decreased Safety Awareness Memory Description Short Term Impaired Gross Range of Motion Lower Extremity ROM Assessment Within Functional Limits Strength Lower Extremity Strength Hip 4-/5 Knee 4/5 Ankle 4/5 Sensation Assessment Sensation Gross Sensation WNL M6 PT-IP Treatment Start: 07/07/22 11:42 Freq: NEEDED Status: Discharge Protocol: Document 07/11/22 10:48 SP (Rec: 07/11/22 19:01 SP [id number]) Physical Therapy Treatment Education Education Provided Safety M7 PT-IP Assessment and Plan Start: 07/07/22 11:42 Freq: NEEDED Status: Discharge Protocol: Document 07/11/22 10:48 SP (Rec: 07/11/22 19:01 SP [id number]) PT Summary Assessment and Plan Potential Rehabilitation Potential Good Status of Condition at Evaluation Evolving Summary Impairments Pain,Strength,Balance, Cognition,Bed Mobility, Transfers,Gait,Activity Tolerance Progress Towards Goals Slow Progress due to Activity Tolerance,Slow Progress - Other Assessment Summary Pt lived at home alone. Today she is alert but still confused and disoriented. Requires Min/Mod A w/ use FWW. Needs redirectioning for gait mechanics and task at hand. Continues to have poor safety awareness and balance. She will require SNF for continued rehab. Goals Bed Mobility Goal Independent Transfer Goal Independent,Front Wheeled Walker Gait Goal Independent,Front Wheel Walker Gait Distance 150 Other Goals - up/down 4 steps with unilateral rail SBA Days to Meet Goals 10 Frequency of Treatment Frequency Of Treatment Once a Day Treatment Plan Physical Therapy Treatment Plan Bed Mobility Training,Transfer Training,Gait Training, Therapeutic Exercise,Balance Retraining,Discharge Planning, Hot or Cold Pack,Neuromuscular Re-ed,Coordination Retraining Other Recommendations and Next Treatment bed mob, transfers, gait w/ Focus FWW, safety techniques, fall risk Precautions Other Precautions falls Recommendations To Nursing Amount of Assist Needed 1 Person Assist Discharge Recommendations PT Discharge Recommendations SNF Rehab Transportation Needs at Discharge Private Vehicle,Wheelchair/ Cabulance
== END 2022-07-10 12:00 | DRG 82 ==
LOC: ED 07-06 00:33 → AC 07-06 00:50 → ICU 07-06 01:31
PROVIDERS: Nurse Practitioner Family; Admitting Provider Family Medicine; Emergency Provider Emergency Medicine; PCP Internal Medicine; Referring Provider Emergency Medicine; Visit Provider Family Medicine
DX: S06.5XAA Traumatic subdural hemorrhage with loss of consciousness status unknown, initial encounter (principal); E43 Unspecified severe protein-calorie malnutrition; G93.5 Compression of brain; Z68.1 Body mass index [BMI] 19.9 or less, adult; S02.841A Fracture of lateral orbital wall, right side, initial encounter for closed fracture; S02.31XA Fracture of orbital floor, right side, initial encounter for closed fracture; S02.40CA Maxillary fracture, right side, initial encounter for closed fracture; I48.91 Unspecified atrial fibrillation; F32.9 Major depressive disorder, single episode, unspecified; F03.90 Unspecified dementia, unspecified severity, without behavioral disturbance, psychotic disturbance, mood disturbance, and anxiety; F32.A Depression, unspecified; M81.0 Age-related osteoporosis without current pathological fracture; E78.00 Pure hypercholesterolemia, unspecified; W18.30XA Fall on same level, unspecified, initial encounter; Z51.5 Encounter for palliative care; Z87.891 Personal history of nicotine dependence; Z66 Do not resuscitate; Z79.01 Long term (current) use of anticoagulants; Z20.822 Contact with and (suspected) exposure to COVID-19
CPT/HCPCS: 0241U; 36415; 70450; 70486; 71045; 72125; 72170; 73590; 80053; 81001; 81003; 82550; 83690; 84484; 85025; 85610; 85730; 87086; 87635; 87797; 93005; 93010; 96365; 96367; 97116; 97162; 97166; 97530; 99284; 99285; C9803; J3430; J7168